=== PATIENT | female | born 1965 | race Caucasian/White ===

== ENCOUNTER 2020-02-25 13:05 | Outpatient (CLI) | payer OTHER, SELFPAY ==
--- NOTE | ~2020-02-25 | CT_ITS ---
EXAMINATION: CT abdomen pelvis wo con DATE: 02/25/2020 13:27 INDICATION: Unspecified abdominal pain TECHNIQUE: Computed tomography (CT) of the abdomen and pelvis was performed without intravenous contr ast. The dose-length product (DLP) was 203.72 mGy-cm. Automated exposure control and iterative recons truction technique were employed. COMPARISON: 10/31/2007 FINDINGS: Minimal dependent atelectasis is present in the lung bases. The heart size is normal. The l iver, spleen, pancreas, gallbladder, and adrenal glands are normal. The kidneys are unremarkable. No stones are identified in the kidneys, ureters, or bladder. There is no hydronephrosis or hydroureter. No pathologically enlarged abdominal or pelvic lymph nodes are identified. There is no free intraper itoneal gas or evidence of bowel obstruction. The appendix is normal. There is mild thickening of the anterior bladder wall. A moderate volume of colonic stool is present. The visualized osseous structu res are unremarkable. IMPRESSION: 1. Mild thickening of the anterior bladder wall which could reflect cystitis. Recommend correlation w ith urinalysis. Reviewed, dictated and finalized at location B. IMPRESSION: 1. Mild thickening of the anterior bladder wall which could reflect cystitis. R ecommend correlation with urinalysis.
== END 2020-02-25 13:06 ==
PROVIDERS: PCP Physician Assistant; Visit Provider Physician Assistant
DX: R10.9 Unspecified abdominal pain (principal); N32.9 Bladder disorder, unspecified
CPT/HCPCS: 74176

== ENCOUNTER → 2020-06-05 14:09 | Outpatient (CLI) | payer OTHER, SELFPAY ==
--- NOTE | ~2020-06-05 | MM_ITS ---
EXAMINATION: MM screening [facility] BI w maria elena HISTORY: Screening mammogram TECHNIQUE: Craniocaudal and mediolateral oblique 3-D tomosynthesis images were obtained and synthetic 2-D images were generated. CAD analysis was submitted and interpreted. COMPARISON: 01/18/2019, 01/08/2018, 12/15/2015 BREAST PARENCHYMAL COMPOSITION: There are scattered areas of fibroglandular density. FINDINGS: RIGHT BREAST: There is no evidence of suspicious mass, calcification, or architectural distortion to suggest malignancy. There has been no significant interval change. LEFT BREAST: An asymmetry is present in the middle third of the outer breast 4.5 cm from the nipple o n the craniocaudal view. IMPRESSION: 1. Left breast asymmetry on the craniocaudal view. 2. Additional mammographic views and possible breast ultrasound are recommended. BI-RADS Category 0: Incomplete: Needs additional imaging evaluation. Reviewed, dictated and finalized at location A. ECT COACH IMPRESSION: 1. Left breast asymmetry on the craniocaudal view. 2. Additional mammographic views and possible breast ultrasound are recommended . BI-RADS Category 0: Incomplete: Needs additional imaging evaluation.
== END ==
PROVIDERS: Visit Provider Nurse Practitioner Obstetrics & Gynecology
DX: Z12.31 Encounter for screening mammogram for malignant neoplasm of breast (principal); R92.8 Other abnormal and inconclusive findings on diagnostic imaging of breast
CPT/HCPCS: 77063; 77067

== ENCOUNTER → 2020-06-24 13:24 | Outpatient (CLI) | payer OTHER, SELFPAY ==
--- NOTE | ~2020-06-24 | DEXA_ITS ---
Bone Density Report Name: Cathy Bates Age: 54 Sex: Female Ethnicity: White Date of : 1965 Indication: postmenopausal osteoporosis; hysterectomy; Referring Provider: Rigo, Sarah Beth Morelos Study: Bone densitometry was performed. Exam Date: June 24, 2020 Accession number: [id number] Bone Density: Region BMD T-score Z-score Classification AP Spine (L1-L4) 0.757 -2.6 -1.6 Osteoporosis Femoral Neck (Left) 0.568 -2.5 -1.5 Osteoporosis Total Hip (Left) 0.639 -2.5 -1.8 Osteoporosis Femoral Neck (Right) 0.583 -2.4 -1.4 Osteopenia Total Hip (Right) 0.653 -2.4 -1.7 Osteopenia Total Hip Mean 0.646 -2.5 -1.8 Osteopenia World Health Organization criteria for BMD impression classify patients as: Normal (T-score at or above -1.0), Osteopenia (T-score between -1.0 and -2.5), or Osteoporosis (T-score at or below -2.5). 10-year Fracture Risk: FRAX not reported because: Some T-score for Spine Total or Hip Total or Femoral Neck at or below -2.5 Previous Exams: Region Exam Age BMD T-score BMD Change BMD Change Date g/cm2 vs Baseline vs Previous AP Spine(L1-L4) 06/24/2020 54 0.757 -2.6 -0.073* -0.019 01/08/2018 52 0.776 -2.5 -0.054* -0.054* 12/15/2015 50 0.830 -2.0 Total Hip(Left) 06/24/2020 54 0.639 -2.5 -0.047* -0.023 01/08/2018 52 0.662 -2.3 -0.024 -0.024 12/15/2015 50 0.686 -2.1 Total Hip(Right) 06/24/2020 54 0.653 -2.4 -0.047* 0.006 01/08/2018 52 0.647 -2.4 -0.053* -0.053* 12/15/2015 50 0.700 -2.0 *Denotes significance at 95% confidence level, LSC for AP Spine = 0.022 g/cm2, LSC for Total Hip = 0.027 g/cm2 Clinical Information Provided by Patient: Smokes Has 3 or more alcoholic drinks per day Has used the following medications: Vitamin D, Calcium Has the following medical conditions: Hysterectomy Patient maximum height was 60 Menopause Age: 42 No regular weight bearing exercise Does not regularly consume dairy products Drinks caffeinated beverages Onset of menses at age 11 Number of children 2 Impression: The patient has osteoporosis, based on the Total Spine T-score. The patient has risk factors, including: smoking, excessive alcohol use. No significant bone loss was observed. Discussion: INCREASED RISK OF FRACTURE. BONE DENSITY IS UNDESIRABLY LOW AT ONE OR MORE SKELETAL SITES, CONSISTENT WITH POSTMENOPAUSAL
== END ==
PROVIDERS: Visit Provider Nurse Practitioner Obstetrics & Gynecology
DX: M81.0 Age-related osteoporosis without current pathological fracture (principal); M85.89 Other specified disorders of bone density and structure, multiple sites
CPT/HCPCS: 77080

== ENCOUNTER → 2020-07-27 14:13 | Outpatient (CLI) | payer OTHER, SELFPAY ==
--- NOTE | ~2020-07-27 | MM_ITS ---
EXAMINATION: MM diagnostic linh LT w maria elena HISTORY: Left breast asymmetry reported in middle third of outer breast 4.5 cm from nipple on cranioc audal view of 06/05/2020 TECHNIQUE: Additional 3-D tomosynthesis images of the left breast were performed and synthetic 2-D im ages were generated. CAD analysis was submitted and interpreted. COMPARISON: 06/05/2020,01/18/2019, 01/08/2018bilateral digital screening mammogram examinations FINDINGS: The area of suggested asymmetry in the outer mid left breast at mid depth 4.5 cm from the n ipple compresses out on the cone compression lateral cc view IMPRESSION: 1. No mammographic evidence of malignancy 2. Routine annual mammographic screening is recommended. BI-RADS Category 2: Benign finding(s). Reviewed, dictated and finalized at location A. GER BUSINESS INTELLIGENCE
== END ==
PROVIDERS: Visit Provider Nurse Practitioner Obstetrics & Gynecology
DX: R92.8 Other abnormal and inconclusive findings on diagnostic imaging of breast (principal)
CPT/HCPCS: 77061; 77065; G0279

== ENCOUNTER 2020-09-28 14:18 | Outpatient (CLI) | payer OTHER, SELFPAY | END 2020-09-28 14:19 | disposition home or self-care (01) | LOC: ANHCOVIDVC 14:18 | DX: Z23 Encounter for immunization (principal) | CPT/HCPCS: 0001A; 91300 ==

== ENCOUNTER 2020-10-19 14:18 | Outpatient (CLI) | payer OTHER, SELFPAY | END 2020-10-19 14:19 | disposition home or self-care (01) | LOC: ANHCOVIDVC 14:18 | DX: Z23 Encounter for immunization (principal) | CPT/HCPCS: 0002A; 91300 ==

== ENCOUNTER 2021-01-25 15:28 | Outpatient (CLI) | payer OTHER, SELFPAY ==
[2021-01-25 15:49] LABS: Add Urine Microscopic? YES; Appearance Urine Clear (Clear); Bilirubin Urine Negative (Negative); Blood Urine 1+ (Negative); Color Urine Straw (Yellow); Glucose Urine UA Negative (Negative); Ketones Urine Negative (Negative); Leukocyte Esterase Ur Negative LEU/UL (NEGATIVE); Mucus Urine Rare /lpf; Nitrate Urine Negative (Negative); Protein Urine Negative (Negative); RBC Urine 0-2 /hpf (0-2); Specific Grav Ur 1.008 (1.001-1.035); Squamous Epithelial Cell Urine Rare /hpf (Few); Urobilinogen Urine Negative mg/dL (<2.0); WBC Urine 0-3 /hpf (0-3)
== END 2021-01-25 15:29 | disposition home or self-care (01) ==
LOC: ANHLAB 15:30
PROVIDERS: PCP Physician Assistant; Visit Provider Physician Assistant
DX: R30.0 Dysuria (principal)
CPT/HCPCS: 81001; 87086; 87088

== ENCOUNTER 2021-05-04 10:12 | Inpatient (IN) | payer OTHER, SELFPAY ==
--- NOTE | ~2021-05-04 | XR_ITS ---
XR ankle LT min 3V DATE: 05/04/2021 10:43 INDICATION: Fall down steps. Bilateral ankle swelling, bruising TECHNIQUE: 4 views COMPARISON: None FINDINGS: There is moderate millimeters lateral displacement of a linear oblique fracture of the late ral malleolus with overlying soft tissue swelling. Virtually nondisplaced transverse fracture of the medial malleolus just above the level of the talar plafond, with mild overlying soft tissue swelling. The posterior malleolus appears intact. IMPRESSION: Bimalleolar fracture Reviewed, dictated and finalized at location A. ENT DEVELOPMENT SPECIALIST IMPRESSION: Bimalleolar fracture
--- NOTE | ~2021-05-04 | XR_ITS ---
XR ankle RT min 3V DATE: 05/04/2021 10:43 INDICATION: Fall down steps. Bilateral ankle swelling, bruising TECHNIQUE: 4 views COMPARISON: None FINDINGS: There is a linear oblique fracture of the lateral malleolus with 2 mm lateral displacement and overlying soft tissue swelling. No other fracture is evident. Ankle mortise appears intact. IMPRESSION: Lateral malleolar 2 millimeter laterally displaced fracture Reviewed, dictated and finalized at location A. CHECKER
--- NOTE | ~2021-05-04 | XR_ITS ---
EXAMINATION: XR chest 1V portable DATE: 05/04/2021 18:14 INDICATION: Preoperative evaluation post fall. Cardiovascular risk factor of smoking. TECHNIQUE: frontal view of the chest was obtained. COMPARISON: None FINDINGS: The lungs are clear with no focal airspace opacities, pulmonary edema, pleural effusion or pneumothor ax. The cardiomediastinal silhouette is normal. Visualized bones and soft tissues are unremarkable. IMPRESSION: 1. No acute cardiopulmonary disease. Reviewed, dictated and finalized at location A. ERSHIP INTERN
--- NOTE | ~2021-05-04 | CT_ITS ---
EXAMINATION: CT brain wo con DATE: 05/04/2021 18:20 INDICATION: Neck pain post fall down steps. TECHNIQUE: Computed tomography (CT) of the head was performed without intravenous contrast. Sagittal and coronal reconstructions were performed. The mA was adjusted according to patient size. Iterative reconstruction technique was employed. The dose-length product was 605.33 mGy-cm. COMPARISON: None FINDINGS: No fracture. No acute intracranial hemorrhage, acute infarction or abnormal extra axial fluid collect ion. Ventricles are normal and symmetric. No mass/mass effect. The orbits, paranasal sinuses and mast oid air cells are normal. IMPRESSION: 1. Normal head CT. No fracture or acute intracranial process. Reviewed, dictated and finalized at location A. COACH
--- NOTE | ~2021-05-04 | CT_ITS ---
EXAMINATION: CT cervical spine wo con DATE: 05/04/2021 18:20 INDICATION: Neck pain post fall TECHNIQUE: Computed tomography (CT) of the cervical spine was performed without intravenous contrast. Automated exposure control and iterative reconstruction technique were employed. The dose-length pro duct was 92.64 mGy-cm. COMPARISON: None FINDINGS: Slight reversal of the normal cervical lordosis. 1 mm anterolisthesis C5 on C6 with mild associated d isc height loss. Vertebral body heights are normal. No fracture. Bilateral severe multilevel cervical facet osteoarthritis contributing to mild neural foraminal stenosis on the right at C4-C5 and C5-C6. No central canal stenosis. Cervical soft tissues are unremarkable. Mild emphysema at the bilateral a pices of lungs. IMPRESSION: 1. Multilevel severe bilateral cervical facet osteoarthritis and mild disc disease at C5-C6. No acute osseous abnormality. 2. Mild emphysema. Reviewed, dictated and finalized at location A. COORDINATOR IMPRESSION: 1. Multilevel severe bilateral cervical facet osteoarthritis and mild disc dise ase at C5-C6. No acute osseous abnormality. 2. Mild emphysema.
--- NOTE | ~2021-05-04 | XR_ITS ---
EXAMINATION: XR ankle RT min 3V DATE: 05/05/2021 16:06 INDICATION: Right ankle fracture. TECHNIQUE: Anteroposterior, oblique and mortise views of the right ankle were obtained. COMPARISON: None. FINDINGS: Again seen is an oblique fracture at the distal metaphyseal region of the right fibula with medial ma rgin of the fracture transversing the cortex at the level of the tibiotalar joint line consistent wit h a Quinones type B injury pattern. There is 1.5 mm lateral displacement of the distal fragment. The ank le mortise remains congruent. No other fractures identified. Profiled joint spaces are normal. There is soft tissue swelling about the lateral malleolus but not about the medial malleolus. IMPRESSION: 1. Minimally displaced right lateral malleolar fracture. Reviewed, dictated and finalized at location A. LE HEAD MACHINE OPERATOR
--- NOTE | ~2021-05-04 | XR_ITS ---
EXAMINATION: XR ankle RT min 3V DATE: 05/05/2021 16:56 INDICATION: Right ankle fracture post cast placement. TECHNIQUE: Anteroposterior, oblique and lateral views of the right ankle were obtained. COMPARISON: 05/05/2021 at 3:41 PM FINDINGS: Interval casting of an oblique fracture of the distal right fibula with no significant change in 1 mm lateral displacement. No other fractures identified. Alignment remains near-anatomic with a congruen t ankle mortise. Joint spaces appear normal. Soft tissue swelling about the lateral malleolus. IMPRESSION: 1. Interval casting the distal right fibular fracture which remains in near-anatomic alignment. Reviewed, dictated and finalized at location A. SORTER IMPRESSION: 1. Interval casting the distal right fibular fracture which remains in near-donaldo tomic alignment.
[2021-05-04 10:15] VITALS: BP 116/74; PULSE 106; RESP 16; TEMP 36.3; O2SAT 99
--- NOTE | 2021-05-04 13:24 | ED.GENADULT ---
HPI - General Adult General Chief complaint: Extremity Injury, Lower Stated complaint: bilat ankle injuries Time Seen by Provider: 05/04/21 10:20 Source: patient Mode of arrival: ambulatory Limitations: no limitations History of Present Illness HPI narrative: Patient is a 55-year-old female with history of osteoporosis presenting with chief complaint of bilateral ankle pain after rolling her right ankle yesterday and falling down 2 steps in her garage after losing her footing. Patient reports that she is not able to weight-bear on the ankles and that she has been having to get around her house using a wheelchair, which has been difficult. Patient reports that she was diagnosed with osteoporosis, is a smoker and has levothyroxine. Patient denies head impact or loss of consciousness. Patient denies any other areas of injury or discomfort. Patient has not taken anything to alleviate her discomfort. Related Data Home Medications Medication Instructions Recorded Confirmed ergocalciferol (vitamin D2) 1,250 1,250 mcg PO WEEKLY 11/07/19 01/26/21 mcg (50,000 unit) capsule vitamin B complex 1 tablet PO DAILY 04/30/20 01/26/21 Allergies Allergy/AdvReac Type Severity Reaction Status Date / Time Penicillins Allergy Mild Unknown Verified 05/04/21 11:55 amoxicillin Allergy Unknown RED Verified 05/04/21 11:55 STREAKS TO FACE AND THROAT, ITCHING morphine Allergy Unknown ITCHING Verified 05/04/21 11:55 nitrofurantoin AdvReac Intermediate bloating Verified 05/04/21 11:55 [From Macrobid] Review of Systems Review of Systems: CONSTITUTIONAL: Denies fever, chills, or sweats. EYES: Denies visual changes, redness, or discharge. ENT: Denies rhinorrhea, congestion, sore throat, or otalgia. CARDIOVASCULAR: Denies chest pain, palpitations, or edema. RESPIRATORY: Denies cough or dyspnea. GASTROINTESTINAL: Denies abdominal pain, nausea, vomiting, or diarrhea. GENITOURINARY: Denies dysuria or hematuria. SKIN: Denies rash or itching. MUSCULOSKELETAL: Reports bilateral ankle pain denies back pain, joint pain, or myalgia. NEUROLOGIC: Denies headache, numbness, dizziness, or weakness. PSYCHIATRIC: Denies anxiety or depression. [facility] Past Medical History Medical History (Updated 05/04/21 @ 17:32 by Denise Zamudio PA-C) Tobacco dependence Social History Social History (Updated 05/04/21 @ 17:57 by Joslyn Kwon PA-C) Social History: Surrogate decision maker: Efrain Bates, spouse. Code status: Full code. Smoking packs per day: 0.5 Smoking cigarettes per day: 10.0 Years smoked: 40 Smoking pack-years: 20.00 Smoking status: Current every day smoker Second hand tobacco smoke exposure: Yes Alcohol intake: current Drinks per week: 42 Alcohol use details: 6 pack of beer/day. Substance use: never Additional living arrangements comments: The patient lives in [place] with her . They have 4 children. 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 Exam Narrative: GENERAL: Well-appearing, well-nourished, and in no acute distress. HEAD: Normocephalic, atraumatic. EYES: PERRLA and EOMI. CHEST: Clear to auscultation. No respiratory distress. No wheezes rales or rhonchi HEART: Regular rate and rhythm. No murmur heard. Normal peripheral pulses. ABDOMEN: Soft, nontender, nondistended, normal active bowel sounds. EXTREMITIES: Swelling noted to bilateral ankles. The right ankle swelling is greater over the lateral malleolus. To the left ankle swelling over both malleolus is. There is bruising noted to bilateral ankles. And swelling distally the patient's feet. Patient is unable to weight-bear due to discomfort. Range of motion limited due to discomfort. SKIN: Warm, dry, no rash. NEURO: No focal deficits. Alert and oriented x3. PSYCH: Normal mood and affect. Course Vital Signs Vital signs: Vital Signs Temperature 97.3 F L 05/04/21 10:15 Pulse Rate 106 H 1
[2021-05-04] MEDS: HYDROcodone/acetaminophen (*CRX) 5-325 MG TABLET 1 TAB PO ×2 (14:12→20:18)
[2021-05-04 15:44] VITALS: BP 120/84; PULSE 99; RESP 18; O2SAT 98
--- NOTE | 2021-05-04 18:30 | PM.IMHP ---
H&P: HPI History of Present Illness Date/Time: 05/04/21 18:30 Chief Complaint: Ankle pain after fall. Narrative: This is a 55-year-old female smoker with osteoporosis, hypothyroidism, daily alcohol consumption, and vitamin-D deficiency who presented to the emergency department earlier today for evaluation of bilateral ankle pain after suffering a fall yesterday. Last evening at around 22:00 the patient when out into the garage and when she stepped down on the stair she believes that her right ankle rolled inwards causing her to fall forward and down another step. She had difficulties getting herself up due to significant pain in both of her ankle and her had to carry her to the couch. Her pain improved with an Aleve and she was able to sleep throughout the night. When attempting to get up this morning she was unable to put weight on either leg due to pain in her ankles and she was brought in to the ER her she was found to have bilateral ankle fractures. On exam she did have mild tenderness to palpation mild acute over the mid cervical vertebrae and with further questioning she thinks that she may have hit the right side of her head when she fell last evening though she did not have any headache or neck ache at that time. There was no loss of consciousness. She denies antecedent symptoms prior to the fall and reports that it was simply a mechanical fall. Review of Systems Review of Systems: Twelve systems were reviewed. No headache. No auditory visual changes. No focal weakness or paresthesias. No fever, chills, or sweats. No recent cold or flu symptoms. She denies chest pain, palpitations, pleuritic pain, and shortness of breath. No nausea, vomiting, diarrhea, or dysuria. The patient drinks about a six-pack of beer a day and has for well over 20 years. She has on occasion noticed tremors or anxiety when not drinking though she has no history of significant alcohol withdrawal symptoms or seizure. Except as documented, all other systems were reviewed and are negative. [facility] Past Medical History Medical History (Updated 05/04/21 @ 22:06 by Joslyn Kwon PA-C) Daily consumption of alcohol Hypothyroidism Osteoporosis Tobacco dependence Vitamin D deficiency Surgical History Surgical History (Updated 05/04/21 @ 22:05 by Joslyn Kwon PA-C) History of 2 sections History of left breast biopsy History of right salpingo-oophorectomy Family History Family History (Updated 05/04/21 @ 22:06 by Joslyn Kwon PA-C) Mother Cerebrovascular accident Father Acute myocardial infarction Social History Social History (Updated 05/04/21 @ 22:07 by Joslyn Kwon PA-C) Social History: Surrogate decision maker: Efrain Bates, spouse. Code status: Full code. Smoking packs per day: 1 Smoking cigarettes per day: 20.0 Years smoked: 40 Smoking pack-years: 40.00 Smoking status: Current every day smoker Tobacco type: cigarettes Second hand tobacco smoke exposure: Yes Alcohol intake: current Drinks per week: 40 Alcohol use details: 6 pack of beer/day. Substance use: never Substance use type: does not use Additional living arrangements comments: The patient lives in [place] with her and a son. Three of their children are grown an outside of the home. 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 Meds Home Medications and Allergies Home Medications Medication Instructions Recorded Confirmed Type ergocalciferol (vitamin D2) 1,250 1,250 mcg PO WEEKLY 11/07/19 05/04/21 History mcg (50,000 unit) capsule vitamin B complex 1 tablet PO DAILY 04/30/20 05/04/21 History levothyroxine 75 mcg tablet 75 mcg PO DAILY #90 tablet 04/06/21 05/04/21 Rx dicyclomine 20 mg PO TID PRN 05/04/21 05/04/21 History Allergies Allergy/AdvReac Type Severity Reaction Status Date / Time Penicillins Allergy Mild Unknown Verified 05/04/21 11:55 amoxicillin Allergy Unknow
[2021-05-04] MEDS: NICOTINE (*PBKC) 14 MG PATCH 1 PATCH TRANSDERM (19:03)
[2021-05-04 19:17] LABS: Basophils Absolute Auto 0.1 K/mm3 (0.0-0.1); Basophils Percent Auto 0.6 % (0.2-1.2); Eosinophils Absolute Auto 0.1 K/mm3 (0-0.3); Eosinophils Percent Auto 0.6 % (0-4.4); Hematocrit 33.8 % (37.0-47.0); Hemoglobin 11.5 g/dL (12.0-15.0); Immature Granulocyte Absolute 0.03 K/mm3 (0.00-0.031); Immature Granulocyte Percent A 0.4 % (0-0.5); Lymphocytes Absolute Auto 2.44 K/mm3 (0.9-3.2); Lymphocytes Percent Auto 31.1 % (18.3-44.2); Mean Corpuscular Hemoglobin 33.6 pg (26-34); Mean Corpuscular Volume 98.8 fl (80-100); Mean Platelet Volume 8.8 fl (7.4-10.4); Monocytes Absolute Auto 1.1 K/mm3 (0.1-0.6); Monocytes Percent Auto 13.8 % (2.6-8.5); Neutrophils Absolute Auto 4.2 K/mm3 (1.3-6.7); Neutrophils Percent Auto 53.5 % (45.5-73.1); Platelet Count Result 242 k/mm3 (150-375); Red Blood Count 3.42 M/mm3 (4.2-5.4); Red Cell Distribution Width 12.6 % (11.5-14.5); White Blood Count 7.8 K/mm3 (4.5-10.0)
[2021-05-04 19:22] VITALS: BP 138/93; PULSE 106; RESP 18; TEMP 37; O2SAT 99
[2021-05-04 19:27] LABS: INR 0.9; Prothrombin Time 11.8 Seconds (11.1-14.7)
[2021-05-04 19:28] LABS: Partial Thromboplastin Time 23.6 SECONDS (22.3-36.8)
[2021-05-04 19:33] LABS: Albumin Level 4.7 g/dL (3.5-5.1); Alkaline Phosphatase 71 U/L (38-126); Anion Gap 10 mmol/L (8-16); Aspartate Amino Transferase 29 U/L (14-36); Bilirubin,Total 0.7 mg/dL (0.2-1.3); Blood Urea Nitrogen 13 mg/dL (7-17); Calcium 9.9 mg/dL (8.4-10.2); Carbon Dioxide 22 mmol/L (22-30); Chloride 107 mmol/L (98-107); Estimated CRCL calculation 55 ml/min; Estimated Glomerular Filt Rate > 60; Glucose 125 mg/dL (65-110); Potassium 3.9 mmol/L (3.4-5.0); Sodium 139 mmol/L (137-145)
--- NOTE | 2021-05-04 19:58 | ADMGEN ---
This patient, Cathy Bates, was admitted to Medical Room 244-. Patient/family oriented to hospital policies and general routines including ID bracelet, bed and alarms, visiting hours, pain management, procedures, bathroom and other care routines, personal items, smoking policy, room service/diet, and visiting hours. Information on how to activate the Rapid Response Team has been discussed. Patient/Family are encouraged to report perceived risks to care and to ask questions if they do not understand what they are told or what they should do.
[2021-05-04 20:02] VITALS: PULSE 100; RESP 18; O2SAT 99
[2021-05-04 20:11] LABS: Thyroid Stimulating Hormone Reflex 0.258 uIU/mL (0.465-4.68)
[2021-05-04 20:18] LABS: Alanine Aminotransferase 20 U/L (4-35)
[2021-05-04 22:00] VITALS: BP 131/68; PULSE 98; RESP 21; TEMP 36.6; O2SAT 100; BMI 20.9
[2021-05-04 22:01] LABS: Total Triiodothyronine (T3) 1.12 NG/ML (0.97-1.69)
[2021-05-05] MEDS: chlordiazePOXIDE (*CRX) 10 MG CAPSULE PO ×2 (00:58→21:25)
--- NOTE | 2021-05-05 01:07 | PC.NURSE ---
PT WAS RESTING WITH EYES CLOSED. STATES DAUGHTER CALLED AND WOKE HER UP AND NOW SHE HAS ANXIETY, LIBRIUM GIVEN
[2021-05-05] MEDS: HYDROcodone/acetaminophen (*CRX) 5-325 MG TABLET 1 TAB PO ×3 (04:54→23:27)
[2021-05-05 06:00] VITALS: BP 147/78; PULSE 93; RESP 21; TEMP 37; O2SAT 100
--- NOTE | 2021-05-05 07:10 | PCOTNOTE ---
Unable to complete OT evaluation at this time due to waiting for ortho consult and appropriate WB orders.
--- NOTE | 2021-05-05 07:16 | PM.CNOR ---
Assessment and Plan Additional Plan This patient is a 55-year-old female with osteoporosis long-term smoker and all call is Prabhakar who fell down some stairs yesterday sustaining a displaced bimalleolar left ankle fracture with acceptable alignment for immobilization until swelling reduces enough to perform open reduction internal fixation and on the right ankle she has a lateral malleolus fracture that does show some displacement without obvious medial clear space widening. This is a fracture that should be subjected to a stress view to see if there is medial clear space widening under stress which would indicate repairing the lateral malleolus fracture of the right ankle as well. She presented the emergency room with significant swelling left ankle and as such we will need to wait approximately 1 week before performing the surgery to allow the swelling to reduce to minimize the risk of wound healing complications skin edge necrosis and infection. She is at higher risk for DVT with immobilization because of her chronic smoking history and I would recommend for her using Lovenox 40 mg daily. She will not be able to bear weight on either ankle and as such she is going to require intensive assistance of others until her ankle fractures heal and I would estimate weight-bearing was started approximately 6 weeks after her surgery. It would be best for her to stop smoking completely at this time because of healing complications and her all [place] is some puts her at risk for developing withdrawal symptoms and that will have to be carefully watched for during this week. Up History of Present Illness HPI Consult date: 05/05/21 Chief complaint: bilateral ankles malleoli fractures PMFSH Past Medical History Medical History (Updated 05/04/21 @ 22:06 by Joslyn Kwon PA-C) Daily consumption of alcohol Hypothyroidism Osteoporosis Tobacco dependence Vitamin D deficiency Surgical History Surgical History (Updated 05/04/21 @ 22:05 by Joslyn Kwon PA-C) History of 2 sections History of left breast biopsy History of right salpingo-oophorectomy Family History Family History (Updated 05/04/21 @ 22:06 by Joslyn Kwon PA-C) Mother Cerebrovascular accident Father Acute myocardial infarction Social History Social History (Updated 05/04/21 @ 22:07 by Joslyn Kwon PA-C) Social History: Surrogate decision maker: Efrain Bates, spouse. Code status: Full code. Smoking packs per day: 1 Smoking cigarettes per day: 20.0 Years smoked: 40 Smoking pack-years: 40.00 Smoking status: Current every day smoker Tobacco type: cigarettes Second hand tobacco smoke exposure: Yes Alcohol intake: current Drinks per week: 40 Alcohol use details: 6 pack of beer/day. Substance use: never Substance use type: does not use Additional living arrangements comments: The patient lives in [place] with her and a son. Three of their children are grown an outside of the home. 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 Meds Home Medications and Allergies Home Medications Medication Instructions Recorded Confirmed Type ergocalciferol (vitamin D2) 1,250 1,250 mcg PO WEEKLY 11/07/19 05/04/21 History mcg (50,000 unit) capsule vitamin B complex 1 tablet PO DAILY 04/30/20 05/04/21 History levothyroxine 75 mcg tablet 75 mcg PO DAILY #90 tablet 04/06/21 05/04/21 Rx dicyclomine 20 mg PO TID PRN 05/04/21 05/04/21 History Allergies Allergy/AdvReac Type Severity Reaction Status Date / Time Penicillins Allergy Mild Unknown Verified 05/04/21 11:55 amoxicillin Allergy Unknown RED Verified 05/04/21 11:55 STREAKS TO FACE AND THROAT, ITCHING morphine Allergy Unknown ITCHING Verified 05/04/21 11:55 nitrofurantoin AdvReac Intermediate bloating Verified 05/04/21 11:55 [From Macrobid] Vital Signs Vital Signs - 24 hr 05/04/21 10:15
[2021-05-05 08:00] VITALS: BP 138/84; PULSE 88; RESP 14; TEMP 36.9; O2SAT 99
[2021-05-05] MEDS: LEVOTHYROXINE SODIUM 75 MCG TABLET PO (08:00)
[2021-05-05] MEDS: FOLIC ACID 1 MG TABLET PO (09:04)
[2021-05-05] MEDS: THIAMINE HCL 100 MG TABLET PO (09:04)
[2021-05-05] MEDS: VITAMIN B COMPLEX CAPSULE 1 CAP PO (09:04)
[2021-05-05] MEDS: THERAPEUTIC MULTIVITAMINS/MINERALS TAB (*BKC) 1 TABLET PO (09:04)
[2021-05-05] MEDS: NICOTINE (*PBKC) 14 MG PATCH 1 PATCH TRANSDERM (09:05)
[2021-05-05] MEDS: ENOXAPARIN 40 MG/0.4 ML SYRINGE SUB-Q (09:05)
--- NOTE | 2021-05-05 09:24 | PCOTNOTE ---
OT orders discharged at this time, waiting for surgery, re-order when appropriate.
--- NOTE | 2021-05-05 09:27 | PCPTNOTE ---
PT orders discharged at this time, waiting for surgery, re-order when appropriate.
[2021-05-05] MEDS: ERGOCALCIFEROL 50,000 UNIT CAPSULE 50000 UNITS PO (11:11)
[2021-05-05 12:00] VITALS: BP 153/77; PULSE 79; RESP 16; TEMP 36.3; O2SAT 98
--- NOTE | 2021-05-05 13:23 | PM.IMPN ---
Progress Note: A&P Assessment and Plan (1) Closed right malleolar fracture: Code(s): S82.891A - Other fracture of right lower leg, initial encounter for closed fracture Status: Acute Assessment and Plan: Seen by orthopedics, continue elevation and pain control (2) Bimalleolar fracture of left ankle: Qualifiers: Encounter type: initial encounter Fracture type: closed Qualified Code(s): S82.842A - Displaced bimalleolar fracture of left lower leg, initial encounter for closed fracture Code(s): S82.842A - Displaced bimalleolar fracture of left lower leg, initial encounter for closed fracture Status: Acute Assessment and Plan: Seen by orthopedics,continue elevation and pain control (3) Fall from ground level: Code(s): W18.30XA - Fall on same level, unspecified, initial encounter Status: Acute Assessment and Plan: Accidental fall (4) Tobacco dependence: Code(s): F17.200 - Nicotine dependence, unspecified, uncomplicated Status: Acute Assessment and Plan: Advised to quit smoking (5) Daily consumption of alcohol: Code(s): Z78.9 - Other specified health status Status: Acute Assessment and Plan: adviced to quit, ciwa protocol in hospital (6) Osteoporosis: Code(s): M81.0 - Age-related osteoporosis without current pathological fracture Status: Acute Assessment and Plan: chronic problem (7) Hypothyroidism: Code(s): E03.9 - Hypothyroidism, unspecified Status: Acute Assessment and Plan: chronic problem, tsh ordered which is low Subjective Date/time seen: 05/05/21 13:23 Interval history: Pt sustained L bimalleolar fracture and R closed fracture after accidental fall. Pt having pain in both ankles and feet awaiting surgery once more stable. Pt has history of osteoporosis, hypothyroidism, daily alcohol consumption, and vitamin-D deficiency Review of Systems Review of Systems: All systems reviewed & are unremarkable except as noted in HPI and below Exam Narrative: General: Well-developed, thin female HEENT: Normocephalic, atraumatic Neck: Supple Respiratory: Aside from faint expiratory wheezing lungs are clear to auscultation bilaterally. Cardiovascular: Regular rate and rhythm with S1-S2. Gastrointestinal: Abdomen is soft, nontender, and nondistended with positive bowel sounds. Skin: Warm and dry. Palmar erythema. Extremities: No cyanosis, clubbing, or edema. Radial pulses 2+. Unable to palpate pedal and posterior tibialis pulses due to cast/splint in place. She is neurovascular intact distal to the fractures. Neurological: Alert and oriented x4. Cranial nerves 2-12 are grossly intact. Objective Data Vital Signs Vital Signs: Vital Signs - 24 hr 05/04/21 15:44 05/04/21 19:22 05/04/21 20:02 Temperature 37.0 C Pulse Rate 99 106 H 100 Respiratory Rate 18 18 18 Blood Pressure 120/84 138/93 H Pulse Oximetry 98 99 99 05/04/21 22:00 05/05/21 06:00 05/05/21 08:00 Temperature 36.6 C 37.0 C 36.9 C Pulse Rate 98 93 88 Respiratory Rate 21 H 21 H 14 Blood Pressure 131/68 147/78 H 138/84 Pulse Oximetry 100 100 99 Intake/Output Intake/Output: Intake & Output 05/02/21 05/03/21 05/04/21 05/05/21 23:59 23:59 23:59 23:59 Output Total 600 Balance -600 Meds/Results Medications: Active Medications Generic Name Dose Route Start Last Admin Trade Name Freq PRN Reason Stop Dose Admin Acetaminophen 650 mg 05/04/21 15:10 Acetaminophen 325 Mg Tablet PO Q4H PRN Mild Pain (1-3) or Fever Hydrocodone Bitart/Acetaminophen 1 tab 05/04/21 15:10 05/05/21 11:11 Hydrocodone/Acetaminophen (*Crx) 5-325 Mg Tablet PO 1 tab Q6H PRN Administration Pain Rated 4-6 Chlordiazepoxide HCl 10 mg 05/04/21 17:52 05/05/21 00:58 Chlordiazepoxide (*Crx) 10 Mg Capsule PO 10 mg Q8H PRN Administration Anxiety/withdrawal
--- NOTE | 2021-05-05 15:41 | PC.NURSE ---
On 05/05/21, the student, [TATA], provided care and completed [facility] on this patient. I have reviewed the student's documentation and agree with the findings.
--- NOTE | 2021-05-05 18:33 | PM.PNORT ---
Progress Note: A&P Additional Plan Patient had her splint removed from the right ankle. There is no significant swelling about the right ankle at all. She had tenderness laterally. We took a few stress view x-rays trying to get a perfect view of the medial clear space and on 1 stress view the medial clear space widened to 4 mm compared with 3 mm superiorly which is borderline and the other views shows no widening to 4 mm. I have recommended therefore that we tried to put the right ankle in a cast and this was done and x-rays in the cast showed reduction of the medial clear space down to 3 mm matching the superior clear space exactly and on the lateral view the 3 mm of posterior displacement of the lateral malleolus fragment is well reduced so I think that this right ankle should do well with nonsurgical treatment. The right ankle was also looked at. She was complaining of some pain in the back the heel we removed the splint and there was a little bit of erythema but nothing significant backed the heel fortunately. She has very thin ankles normally and she has moderate swelling and the skin is tight a little bit and it would be best to wait a full week to allow the swelling to reduce on the left before proceeding with open reduction internal fixation of her bimalleolar ankle fracture on that side. She was placed in a very well-padded posterior splint extra padding behind the heel with ABD. She had 2+ dorsalis pedis pulses palpable bilaterally and intact light touch sensation in her toes and top and bottom of both feet with splints off. I should mention that there was no blistering in the skin just moderate swelling with some degree of firmness around the left ankle. Our plan is to proceed with open reduction internal fixation of bimalleolar left ankle fracture in 1 week and we have scheduled the procedure for her. I would recommend that she be on the Lovenox for DVT prophylaxis and we will plan to stop her Lovenox after her dose on Monday. Her platelets are normal at 242,000 hundred forty two thousand this today and we will want to check platelets at some point probably next Monday when she is in the hospital for her surgery be appropriate. Subjective Subjective Date/Time Seen: 05/05/21 18:33 Objective Data Vital Signs Vital Signs: Vital Signs - 24 hr 05/04/21 19:22 05/04/21 20:02 05/04/21 22:00 Temperature 37.0 C 36.6 C Pulse Rate 106 H 100 98 Respiratory Rate 18 18 21 H Blood Pressure 138/93 H 131/68 Pulse Oximetry 99 99 100 05/05/21 06:00 05/05/21 08:00 05/05/21 12:00 Temperature 37.0 C 36.9 C 36.3 C L Pulse Rate 93 88 79 Respiratory Rate 21 H 14 16 Blood Pressure 147/78 H 138/84 153/77 H Pulse Oximetry 100 99 98 Intake/Output Intake/Output: Intake & Output 05/02/21 05/03/21 05/04/21 05/05/21 23:59 23:59 23:59 23:59 Intake Total 2200 Output Total 1350 Balance 850 Meds/Results Medications: Active Medications Generic Name Dose Route Start Last Admin Trade Name Freq PRN Reason Stop Dose Admin Acetaminophen 650 mg 05/04/21 15:10 Acetaminophen 325 Mg Tablet PO Q4H PRN Mild Pain (1-3) or Fever Hydrocodone Bitart/Acetaminophen 1 tab 05/04/21 15:10 05/05/21 11:11 Hydrocodone/Acetaminophen (*Crx) 5-325 Mg Tablet PO 1 tab Q6H PRN Administration Pain Rated 4-6 Chlordiazepoxide HCl 10 mg 05/04/21 17:52 05/05/21 00:58 Chlordiazepoxide (*Crx) 10 Mg Capsule PO 10 mg Q8H PRN Administration Anxiety/withdrawal Enoxaparin Sodium 40 mg 05/05/21 09:00 05/05/21 09:05 Enoxaparin 40 Mg/0.4 Ml Syringe SUB-Q 40 mg DAILY CHARISMA Administration Ergocalciferol 50,000 unit 05/05/21 09:00 05/05/21 11:11 Ergocalciferol 50,000 Unit Capsule PO 50,000 unit WEEKLY CHARISMA Administration Folic Acid 1 mg 05/05/21 09:00 05/05/21 09:04 Folic Acid 1 Mg Tablet PO 1 mg DAILY CHARISMA Administration Levothyroxine Sodium 75 mcg 05/05/21 13:31 Levothyroxine
[2021-05-05 20:00] VITALS: BP 146/79
[2021-05-05 20:03] VITALS: PULSE 82; RESP 18; O2SAT 98
[2021-05-05] MEDS: ACETAMINOPHEN 325 MG TABLET 650 MG PO (21:24)
[2021-05-05 22:00] VITALS: BP 146/79; PULSE 95; RESP 21; TEMP 36.1; O2SAT 100
[2021-05-06 04:00] VITALS: BP 146/79
[2021-05-06] MEDS: LEVOTHYROXINE SODIUM 75 MCG TABLET PO (05:32)
[2021-05-06 06:00] VITALS: BP 138/85; PULSE 82; RESP 21; TEMP 36.1; O2SAT 100
--- NOTE | 2021-05-06 07:20 | PM.PNORT ---
Progress Note: A&P Additional Plan patient is hospital day 3. After bilateral ankle fractures. Right ankle appears to be an SER stage II lateral malleolus fracture without gross deltoid ligament insufficiency on stress views and anatomic alignment of the mortise in the cast. We will treat this nonsurgically as long as anatomic alignment is maintained. With respect to her left ankle, we on wrapped splint yesterday and noted that she had rather tense swelling and I expect it will take a week for the swelling to go down to the degree that it will be safe to proceed with open reduction internal fixation of her bimalleolar ankle fracture which is displaced. A new well-padded splint was applied. She will need to be Jennifer lift transfers bed to chair until that time. Elevation will be reagan. We will check a 25 hydroxy vitamin-D level and supplement this if it is low. She has osteoporosis and will need to have that addressed after her fractures are stabilized. Subjective Subjective Date/Time Seen: 05/06/21 07:20 Objective Data Vital Signs Vital Signs: Vital Signs - 24 hr 05/05/21 08:00 05/05/21 12:00 05/05/21 20:00 Temperature 36.9 C 36.3 C L Pulse Rate 88 79 Respiratory Rate 14 16 Blood Pressure 138/84 153/77 H 146/79 H Pulse Oximetry 99 98 05/05/21 20:03 05/05/21 22:00 05/06/21 04:00 Temperature 36.1 C L Pulse Rate 82 95 Respiratory Rate 18 21 H Blood Pressure 146/79 H 146/79 H Pulse Oximetry 98 100 05/06/21 06:00 Temperature 36.1 C L Pulse Rate 82 Respiratory Rate 21 H Blood Pressure 138/85 Pulse Oximetry 100 Intake/Output Intake/Output: Intake & Output 05/03/21 05/04/21 05/05/21 05/06/21 23:59 23:59 23:59 23:59 Intake Total 2200 650 Output Total 1350 800 Balance 850 -150 Meds/Results Medications: Active Medications Generic Name Dose Route Start Last Admin Trade Name Freq PRN Reason Stop Dose Admin Acetaminophen 650 mg 05/04/21 15:10 05/05/21 21:24 Acetaminophen 325 Mg Tablet PO 650 mg Q4H PRN Administration Mild Pain (1-3) or Fever Hydrocodone Bitart/Acetaminophen 1 tab 05/06/21 07:19 Hydrocodone/Acetaminophen (*Crx) 5-325 Mg Tablet PO Q4H PRN Pain Rated 4-6 Chlordiazepoxide HCl 10 mg 05/04/21 17:52 05/05/21 21:25 Chlordiazepoxide (*Crx) 10 Mg Capsule PO 10 mg Q8H PRN Administration Anxiety/withdrawal Enoxaparin Sodium 40 mg 05/05/21 09:00 05/05/21 09:05 Enoxaparin 40 Mg/0.4 Ml Syringe SUB-Q 40 mg DAILY CHARISMA Administration Ergocalciferol 50,000 unit 05/05/21 09:00 05/05/21 11:11 Ergocalciferol 50,000 Unit Capsule PO 50,000 unit WEEKLY CHARISMA Administration Folic Acid 1 mg 05/05/21 09:00 05/05/21 09:04 Folic Acid 1 Mg Tablet PO 1 mg DAILY CHARISMA Administration Levothyroxine Sodium 75 mcg 05/05/21 13:31 05/06/21 05:32 Levothyroxine Sodium 75 Mcg Tablet PO 75 mcg DAILY@0630 CHARISMA Administration Multivitamins/Calcium 1 tablet 05/05/21 09:00 05/05/21 09:04 Therapeutic Multivitamins/Minerals Tab (*Bkc) PO 1 tablet QAM [facility] Administration Thiamine HCl 100 mg 05/05/21 09:00 05/05/21 09:04 Thiamine Hcl 100 Mg Tablet PO 100 mg QAM [facility] Administration Vitamin B Complex 1 cap 05/05/21 09:00 05/05/21 09:04 Vitamin B Complex Capsule PO 1 cap DAILY CHARISMA Administration Radiology Results: ITS Impressions Chest X-Ray 05/04/21 18:15 IMPRESSION: 1. No acute cardiopulmonary disease. Head CT 05/04/21 18:31 IMPRESSION: 1. Normal head CT. No fracture or acute intracranial process. Cervical Spine CT 05/04/21 18:34 IMPRESSION: 1. Multilevel severe bilateral cervical facet osteoarthritis and mild disc disease at C5-C6. No acute osseous abnormality. 2. Mild emphysema. Ankle X-Ray 05/05/21 17:15 IMPRESSION: 1. Interval casting the distal right fibular fracture which remains in near-anatomic alignment.
[2021-05-06 08:52] LABS: Vitamin D 25 Hydroxy 37.2 ng/mL
[2021-05-06] MEDS: THERAPEUTIC MULTIVITAMINS/MINERALS TAB (*BKC) 1 TABLET PO (09:00)
[2021-05-06] MEDS: ENOXAPARIN 40 MG/0.4 ML SYRINGE SUB-Q (09:00)
[2021-05-06] MEDS: VITAMIN B COMPLEX CAPSULE 1 CAP PO (09:00)
[2021-05-06] MEDS: THIAMINE HCL 100 MG TABLET PO (09:00)
[2021-05-06] MEDS: FOLIC ACID 1 MG TABLET PO (09:39)
--- NOTE | 2021-05-06 09:46 | PM.IMPN ---
Progress Note: A&P Assessment and Plan (1) Closed right malleolar fracture: Code(s): S82.891A - Other fracture of right lower leg, initial encounter for closed fracture Status: Acute Assessment and Plan: Seen by orthopedics, continue elevation and pain control (2) Bimalleolar fracture of left ankle: Qualifiers: Encounter type: initial encounter Fracture type: closed Qualified Code(s): S82.842A - Displaced bimalleolar fracture of left lower leg, initial encounter for closed fracture Code(s): S82.842A - Displaced bimalleolar fracture of left lower leg, initial encounter for closed fracture Status: Acute Assessment and Plan: Seen by orthopedics,continue elevation and pain control (3) Fall from ground level: Code(s): W18.30XA - Fall on same level, unspecified, initial encounter Status: Acute Assessment and Plan: Accidental fall (4) Tobacco dependence: Code(s): F17.200 - Nicotine dependence, unspecified, uncomplicated Status: Acute Assessment and Plan: Advised to quit smoking (5) Daily consumption of alcohol: Code(s): Z78.9 - Other specified health status Status: Acute Assessment and Plan: adviced to quit, ciwa protocol in hospital (6) Osteoporosis: Code(s): M81.0 - Age-related osteoporosis without current pathological fracture Status: Acute Assessment and Plan: chronic problem (7) Hypothyroidism: Code(s): E03.9 - Hypothyroidism, unspecified Status: Acute Assessment and Plan: chronic problem, pt is on levothyroxine Subjective Date/time seen: 05/06/21 09:46 Interval history: Pt sustained L bimalleolar fracture and R closed fracture after accidental fall. Pt having pain in both ankles and feet awaiting surgery once more stable. Pt has history of osteoporosis, hypothyroidism, daily alcohol consumption, and vitamin-D deficiency. Pt had casts placed yesterday on both legs, pt is able to use her upper body for some ADLs, but pt is unable to transfer with both legs in casts. Review of Systems Review of Systems: All systems reviewed & are unremarkable except as noted in HPI and below Exam Const: General: cooperative and healthy appearing; No in distress Nutritional Appearance: overweight Orientation/consciousness: oriented to person HENMT: Head: normal to inspection Resp: Effort & Inspection: no respiratory distress Auscultation: no rhonchi and no wheezes Cardio: Rate: regular rate Rhythm: regular rhythm GI: Inspection: normal to inspection GI Palp: No abdominal tenderness, No Guarding due to palpation present (GI) and No Hepatomegaly present Auscultation: normal bowel sounds Extrem: Other: both lower legs in casts Objective Data Vital Signs Vital Signs: Vital Signs - 24 hr 05/05/21 12:00 05/05/21 20:00 05/05/21 20:03 Temperature 36.3 C L Pulse Rate 79 82 Respiratory Rate 16 18 Blood Pressure 153/77 H 146/79 H Pulse Oximetry 98 98 05/05/21 22:00 05/06/21 04:00 05/06/21 06:00 Temperature 36.1 C L 36.1 C L Pulse Rate 95 82 Respiratory Rate 21 H 21 H Blood Pressure 146/79 H 146/79 H 138/85 Pulse Oximetry 100 100 Intake/Output Intake/Output: Intake & Output 05/03/21 05/04/21 05/05/21 05/06/21 23:59 23:59 23:59 23:59 Intake Total 2200 650 Output Total 1350 800 Balance 850 -150 Meds/Results Medications: Active Medications Generic Name Dose Route Start Last Admin Trade Name Freq PRN Reason Stop Dose Admin Acetaminophen 650 mg 05/04/21 15:10 05/05/21 21:24 Acetaminophen 325 Mg Tablet PO 650 mg Q4H PRN Administration Mild Pain (1-3) or Fever Hydrocodone Bitart/Acetaminophen 1 tab 05/06/21 07:19 Hydrocodone/Acetaminophen (*Crx) 5-325 Mg Tablet PO Q4H PRN Pain Rated 4-6 Chlordiazepoxide HCl 10 mg 05/04/21 17:52 05/05/21 21:25 Chlordiazepoxide (*Crx) 10 Mg Capsule PO 10 mg
[2021-05-06 12:00] VITALS: BP 155/81; PULSE 102; RESP 16; TEMP 36.3; O2SAT 100
[2021-05-06] MEDS: ACETAMINOPHEN 325 MG TABLET 650 MG PO ×2 (13:55→20:35)
[2021-05-06 19:30] VITALS: BP 133/77; PULSE 79; RESP 17; TEMP 36.6; O2SAT 100
[2021-05-06] MEDS: chlordiazePOXIDE (*CRX) 10 MG CAPSULE PO (20:36)
[2021-05-06 21:44] VITALS: O2SAT 99
[2021-05-07] VITALS: BP 133/77
[2021-05-07] MEDS: HYDROcodone/acetaminophen (*CRX) 5-325 MG TABLET 1 TAB PO ×2 (00:16→23:42)
[2021-05-07 03:23] VITALS: BP 145/83; PULSE 72; RESP 17; TEMP 35.9; O2SAT 100
[2021-05-07 04:00] VITALS: BP 145/83
[2021-05-07] MEDS: LEVOTHYROXINE SODIUM 75 MCG TABLET PO (05:50)
[2021-05-07] MEDS: ACETAMINOPHEN 325 MG TABLET 650 MG PO ×3 (05:51→18:05)
[2021-05-07] MEDS: ENOXAPARIN 40 MG/0.4 ML SYRINGE SUB-Q (09:12)
[2021-05-07 09:14] VITALS: RESP 18; O2SAT 100
[2021-05-07] MEDS: VITAMIN B COMPLEX CAPSULE 1 CAP PO (09:14)
[2021-05-07] MEDS: THERAPEUTIC MULTIVITAMINS/MINERALS TAB (*BKC) 1 TABLET PO (09:14)
[2021-05-07] MEDS: FOLIC ACID 1 MG TABLET PO (09:14)
[2021-05-07] MEDS: THIAMINE HCL 100 MG TABLET PO (09:14)
[2021-05-07 12:00] VITALS: BP 149/64; PULSE 85; RESP 20; O2SAT 99
--- NOTE | 2021-05-07 13:32 | PM.IMPN ---
Progress Note: A&P Assessment and Plan (1) Closed right malleolar fracture: Code(s): S82.891A - Other fracture of right lower leg, initial encounter for closed fracture Status: Acute Assessment and Plan: Seen by orthopedics, continue elevation and pain control. Pt to do more with physical therapy today with transfers. Pt wants to go home and return for orthopedic surgery. (2) Bimalleolar fracture of left ankle: Qualifiers: Encounter type: initial encounter Fracture type: closed Qualified Code(s): S82.842A - Displaced bimalleolar fracture of left lower leg, initial encounter for closed fracture Code(s): S82.842A - Displaced bimalleolar fracture of left lower leg, initial encounter for closed fracture Status: Acute Assessment and Plan: Seen by orthopedics,continue elevation and pain control. Pt to do more with physical therapy today with transfers. Pt wants to go home and return for orthopedic surgery. (3) Fall from ground level: Code(s): W18.30XA - Fall on same level, unspecified, initial encounter Status: Acute Assessment and Plan: Accidental fall (4) Tobacco dependence: Code(s): F17.200 - Nicotine dependence, unspecified, uncomplicated Status: Acute Assessment and Plan: Advised to quit smoking (5) Daily consumption of alcohol: Code(s): Z78.9 - Other specified health status Status: Acute Assessment and Plan: adviced to quit, ciwa protocol in hospital (6) Osteoporosis: Code(s): M81.0 - Age-related osteoporosis without current pathological fracture Status: Acute Assessment and Plan: chronic problem (7) Hypothyroidism: Code(s): E03.9 - Hypothyroidism, unspecified Status: Acute Assessment and Plan: chronic problem, pt is on levothyroxine Subjective Date/time seen: 05/07/21 13:32 Interval history: Pt sustained L bimalleolar fracture and R closed fracture after accidental fall. Pt having pain in both ankles and feet awaiting surgery once more stable. Pt has history of osteoporosis, hypothyroidism, daily alcohol consumption, and vitamin-D deficiency. Pt had casts placed yesterday on both legs, pt is able to use her upper body for some ADLs, but pt is unable to transfer with both legs in casts. Pt to do more with physical therapy today with transfers. Pt wants to go home and return for orthopedic surgery. Review of Systems Review of Systems: All systems reviewed & are unremarkable except as noted in HPI and below Exam Narrative: General: Well-developed, thin female HEENT: Normocephalic, atraumatic Neck: Supple Respiratory: Aside from faint expiratory wheezing lungs are clear to auscultation bilaterally. Cardiovascular: Regular rate and rhythm with S1-S2. Gastrointestinal: Abdomen is soft, nontender, and nondistended with positive bowel sounds. Skin: Warm and dry. Palmar erythema. Extremities: r leg with hard cast l leg with splint Neurological: Alert and oriented x4. Cranial nerves 2-12 are grossly intact. Objective Data Vital Signs Vital Signs: Vital Signs - 24 hr 05/06/21 19:30 05/06/21 21:44 05/07/21 00:00 Temperature 36.6 C Pulse Rate 79 Respiratory Rate 17 Blood Pressure 133/77 133/77 Pulse Oximetry 100 99 05/07/21 03:23 05/07/21 04:00 05/07/21 09:14 Temperature 35.9 C L Pulse Rate 72 Respiratory Rate 17 18 Blood Pressure 145/83 H 145/83 H Pulse Oximetry 100 100 Intake/Output Intake/Output: Intake & Output 05/04/21 05/05/21 05/06/21 05/07/21 23:59 23:59 23:59 23:59 Intake Total 2200 2520 900 Output Total 1350 2300 Balance 850 220 900 Meds/Results Medications: Active Medications Generic Name Dose Route Start Last Admin Trade Name Freq PRN Reason Stop Dose Admin Acetaminophen 650 mg 05/04/21 15:10 05/07/21 12:24 Acetaminophen 325 Mg Tablet PO 650 mg Q4H PRN Administration
--- NOTE | 2021-05-07 14:31 | PM.PNORT ---
Progress Note: A&P Additional Plan Patient is doing well. She is much more comfortable in the splint on the left in the cast the right. Her surgery for repair of the bimalleolar left ankle fracture scheduled for this Monday. She has decided she would like to go home. She assures me that her was very able body and strong can easily lift her and move her from to bed to chair to wheelchair to commode. I have stressed with her that she must not put any weight or pressure on either heel. The nurse is going to teach her how to give her Lovenox injection by given her some practice shots to administer today and she will give these to herself at home every 9:00 a.m. the last dose at Monday. I warned her about not using any aspirin or anti-inflammatory medications and she should avoid any smoking and avoiding nicotine products because of increased risk of skin edge necrosis and infection. For swelling is down enough by Monday we will proceed with open reduction internal fixation of the bimalleolar left ankle fracture at that time. Subjective Subjective Date/Time Seen: 05/07/21 14:31 Objective Data Vital Signs Vital Signs: Vital Signs - 24 hr 05/06/21 19:30 05/06/21 21:44 05/07/21 00:00 Temperature 36.6 C Pulse Rate 79 Respiratory Rate 17 Blood Pressure 133/77 133/77 Pulse Oximetry 100 99 05/07/21 03:23 05/07/21 04:00 05/07/21 09:14 Temperature 35.9 C L Pulse Rate 72 Respiratory Rate 17 18 Blood Pressure 145/83 H 145/83 H Pulse Oximetry 100 100 Intake/Output Intake/Output: Intake & Output 05/04/21 05/05/21 05/06/21 05/07/21 23:59 23:59 23:59 23:59 Intake Total 2200 2520 900 Output Total 1350 2300 Balance 850 220 900 Meds/Results Medications: Active Medications Generic Name Dose Route Start Last Admin Trade Name Freq PRN Reason Stop Dose Admin Acetaminophen 650 mg 05/04/21 15:10 05/07/21 12:24 Acetaminophen 325 Mg Tablet PO 650 mg Q4H PRN Administration Mild Pain (1-3) or Fever Hydrocodone Bitart/Acetaminophen 1 tab 05/06/21 07:19 05/07/21 00:16 Hydrocodone/Acetaminophen (*Crx) 5-325 Mg Tablet PO 1 tab Q4H PRN Administration Pain Rated 4-6 Chlordiazepoxide HCl 10 mg 05/04/21 17:52 05/06/21 20:36 Chlordiazepoxide (*Crx) 10 Mg Capsule PO 10 mg Q8H PRN Administration Anxiety/withdrawal Enoxaparin Sodium 40 mg 05/05/21 09:00 05/07/21 09:12 Enoxaparin 40 Mg/0.4 Ml Syringe SUB-Q 40 mg DAILY [facility]ISMA Administration Ergocalciferol 50,000 unit 05/05/21 09:00 05/05/21 11:11 Ergocalciferol 50,000 Unit Capsule PO 50,000 unit WEEKLY [facility]ISMA Administration Folic Acid 1 mg 05/05/21 09:00 05/07/21 09:14 Folic Acid 1 Mg Tablet PO 1 mg DAILY CHARISMA Administration Levothyroxine Sodium 75 mcg 05/05/21 13:31 05/07/21 05:50 Levothyroxine Sodium 75 Mcg Tablet PO 75 mcg DAILY@0630 CHARISMA Administration Multivitamins/Calcium 1 tablet 05/05/21 09:00 05/07/21 09:14 Therapeutic Multivitamins/Minerals Tab (*Bkc) PO 1 tablet QAM [facility] Administration Thiamine HCl 100 mg 05/05/21 09:00 05/07/21 09:14 Thiamine Hcl 100 Mg Tablet PO 100 mg QAM [facility] Administration Vitamin B Complex 1 cap 05/05/21 09:00 05/07/21 09:14 Vitamin B Complex Capsule PO 1 cap DAILY CHARISMA Administration Radiology Results: ITS Impressions Chest X-Ray 05/04/21 18:15 IMPRESSION: 1. No acute cardiopulmonary disease. Head CT 05/04/21 18:31 IMPRESSION: 1. Normal head CT. No fracture or acute intracranial process. Cervical Spine CT 05/04/21 18:34 IMPRESSION: 1. Multilevel severe bilateral cervical facet osteoarthritis and mild disc disease at C5-C6. No acute osseous abnormality. 2. Mild emphysema. Ankle X-Ray 05/05/21 17:15 IMPRESSION: 1. Interval casting the distal right fibular fracture which remains in near-anatomic alignment.
--- NOTE | 2021-05-07 15:48 | PM.DS ---
DS: Admitting Diagnosis Discharge Date 05/08/2021 Admitting Diagnosis Ankle pain after fall. DS: Discharge Diagnosis Discharge Diagnosis (1) Closed right malleolar fracture: Code(s): S82.891A - Other fracture of right lower leg, initial encounter for closed fracture Status: Acute Assessment and Plan: Seen by orthopedics, continue elevation and pain control. Pt can be discharged but must follow specific instructions non weight bearing on both legs, Lovenox shots until Monday. Return for surgery on Monday. Pt will be off and will take care of her at home. (2) Bimalleolar fracture of left ankle: Qualifiers: Encounter type: initial encounter Fracture type: closed Qualified Code(s): S82.842A - Displaced bimalleolar fracture of left lower leg, initial encounter for closed fracture Code(s): S82.842A - Displaced bimalleolar fracture of left lower leg, initial encounter for closed fracture Status: Acute Assessment and Plan: Seen by orthopedics, continue elevation and pain control. Pt can be discharged but must follow specific instructions non weight bearing on both legs, Lovenox shots until Monday. Return for surgery on Monday. Pt will be off and will take care of her at home. (3) Fall from ground level: Code(s): W18.30XA - Fall on same level, unspecified, initial encounter Status: Acute Assessment and Plan: Accidental fall (4) Tobacco dependence: Code(s): F17.200 - Nicotine dependence, unspecified, uncomplicated Status: Acute Assessment and Plan: Advised to quit smoking, no nicotine products until surgery (5) Daily consumption of alcohol: Code(s): Z78.9 - Other specified health status Status: Acute Assessment and Plan: Adviced to quit alcholol use (6) Osteoporosis: Code(s): M81.0 - Age-related osteoporosis without current pathological fracture Status: Acute Assessment and Plan: Chronic problem - alendronate stopped for short time until after surgery (7) Hypothyroidism: Code(s): E03.9 - Hypothyroidism, unspecified Status: Acute Assessment and Plan: Chronic problem, pt is on levothyroxine DS: Summary Hospital Course Hospital Course: Seen by orthopedics, continue elevation and pain control. Pt can be discharged but must follow specific instructions non weight bearing on both legs, Lovenox shots until Monday. Return for surgery on Monday. Pt will be off and will take care of her at home Time Spent with Patient Time attestation: Total time spent providing and/or coordinating discharge services:45 minutes on day of discharge Exam Narrative: General: Well-developed, thin female HEENT: Normocephalic, atraumatic Neck: Supple Respiratory: Aside from faint expiratory wheezing lungs are clear to auscultation bilaterally. Cardiovascular: Regular rate and rhythm with S1-S2. Gastrointestinal: Abdomen is soft, nontender, and nondistended with positive bowel sounds. Skin: Warm and dry. Palmar erythema. Extremities: r leg with hard cast, l leg with splint Neurological: Alert and oriented x4. Cranial nerves 2-12 are grossly intact. Discharge Plan Discharge Attending physician on discharge: Yolande Benitez Consulting providers: Rah Roche ; Denise Zamudio Discharging Clinician: Yolande Benitez Anticipated Discharge Date/Time: 05/07/21 15:24 Patient Disposition: Home, Self-Care Activity: follow weight bearing status and other - see discharge instructions Diet: regular Discharge Instructions: Discontinue the Lovenox after does on Monday. Do not give Lovenox on MondayMay 11 or MondayMay 12. Patient is scheduled to return to the hospital on Monday the for open reduction internal fixation of left ankle bimalleolar fractures. She must be NPO after midnight
--- NOTE | 2021-05-07 17:27 | PCCCNOTE ---
Rec'd call from RN stating Dr talking about discharging pt tonight on Lovenox 40 mg daily x 3 days. Per [facility] pt's cost will be $11.32. Pharmacy closing at 6 pm tonight and will open at 9 am tomorrow. Notified RN.
[2021-05-07 21:24] VITALS: BP 136/84; PULSE 76; RESP 14; TEMP 36.1; O2SAT 100
[2021-05-07] MEDS: chlordiazePOXIDE (*CRX) 10 MG CAPSULE PO (22:29)
[2021-05-08] MEDS: HYDROcodone/acetaminophen (*CRX) 5-325 MG TABLET 1 TAB PO ×2 (04:42→10:10)
[2021-05-08 05:36] VITALS: BP 138/66; PULSE 74; RESP 14; TEMP 36; O2SAT 100
[2021-05-08] MEDS: LEVOTHYROXINE SODIUM 75 MCG TABLET PO (07:00)
[2021-05-08] MEDS: THIAMINE HCL 100 MG TABLET PO (08:54)
[2021-05-08] MEDS: ENOXAPARIN 40 MG/0.4 ML SYRINGE SUB-Q (08:54)
[2021-05-08] MEDS: FOLIC ACID 1 MG TABLET PO (08:54)
[2021-05-08] MEDS: VITAMIN B COMPLEX CAPSULE 1 CAP PO (08:54)
[2021-05-08] MEDS: THERAPEUTIC MULTIVITAMINS/MINERALS TAB (*BKC) 1 TABLET PO (08:54)
--- NOTE | 2021-05-08 10:00 | PCPTNOTE ---
Patient declined to transfer at this time, and requested to wait until her arrives to take her home today. RN to call therapy when patient's arrives.
== END 2021-05-08 11:44 | disposition home or self-care (01) | DRG 563 ==
LOC: ANHED 17:32 → ANH3MEDSUR 17:43 → ANH2MED 19:13
PROVIDERS: Orthopaedic Surgery; Physician Assistant; Admitting Provider Internal Medicine; Emergency Provider Emergency Medicine; PCP Physician Assistant; Visit Provider Family Medicine
DX: S82.842A Displaced bimalleolar fracture of left lower leg, initial encounter for closed fracture (principal); S82.61XA Displaced fracture of lateral malleolus of right fibula, initial encounter for closed fracture; W10.9XXA Fall (on) (from) unspecified stairs and steps, initial encounter; Y93.9 Activity, unspecified; Y92.008 Other place in unspecified non-institutional (private) residence as the place of occurrence of the external cause; Y99.9 Unspecified external cause status; M81.0 Age-related osteoporosis without current pathological fracture; Z88.0 Allergy status to penicillin; F17.210 Nicotine dependence, cigarettes, uncomplicated; E03.9 Hypothyroidism, unspecified; E55.9 Vitamin D deficiency, unspecified
CPT/HCPCS: 29515; 36415; 70450; 71045; 72125; 73600; 73610; 80053; 82306; 83735; 84439; 84443; 84480; 85025; 85610; 85730; 96372; 97162; 97165; 97530; 99285; A9270; G0378; J1650

== ENCOUNTER 2021-05-12 06:00 | Inpatient (IN) | payer OTHER, SELFPAY ==
[2021-05-10 08:21] VITALS: BMI 19.3
--- NOTE | 2021-05-10 08:42 | PC.NURSE ---
Report to the Outpatient Waiting Room, entrance under the green pavilion located off [facility], at time 1130 on date 05/12/21. OR Time: 1330. - You and your visitor will be asked a series of questions to screen for COVID 19 for your protection. - A mask is required within the hospital. - Only one visitor is allowed at this time. Patient visitors will be guided where to wait when not with patient. Preoperative COVID Testing Requirements: No COVID Test needed if: (proof is required; if not received patient will have Rapid Test prior to entry) - Patient has received COVID Vaccine at least 14 days prior to procedure date or - Patient has positive COVID test result within last 90 days of surgery date. COVID Test needed if above criteria is not met If not COVID vaccinated a COVID test must be conducted within 72 hours of surgery and patient is asked to isolate self from time of testing until procedure. You will go to the [facility] for your COVID testing. The [facility] site is located at the corner of [address] [facility]. You will only be called if COVID results are positive and your surgeon may reschedule your elective surgery date. Patients may have clear liquids (water, carbonated beverages, clear teas, apple juice) until 3 hours prior to surgery with a maximum of 20 ounces. - No food from midnight until time of surgery - Infants may have breast milk until 4 hours before surgery, infant formula 6 hours prior to surgery. - Children will be allowed to drink immediately following surgery. If applicable, please bring a bottle or sippy cup to assist with drinking. Juice, water, soda, and popsicles are readily available. For infants on formula, please bring formula the day of surgery. Pacifiers are allowed. Take the following medications with a SIP of water the morning of surgery: CHLORDIAZEPOXIDE, LEVOTHYROXINE, PAIN PILL (IF NEEDED) Medications to discontinue per physician: VITAMINS/SUPPLEMENTS Date to take last dose: 05/08/[address] HALE Please no make-up, nail cuban, hairspray, perfume, deodorant, or body powder the day of surgery. No jewelry (including any body piercings) or valuables the day of surgery, leave them at home. Please take a shower or bath the night before, or the morning of, surgery with an antibacterial soap. Wear comfortable, loose fitting clothing. Children are encouraged to wear pajamas. - Jewelry must be removed prior to entering the operating room. Rings and piercings that are not removed may be cut off. - The hospital will not accept responsibility for valuables. - Please leave all valuables, including medications, at home the day of surgery. If you are going home after surgery, a licensed driver guide must drive you home. - NO public transportation without another adult. - We recommend that an adult stay with you for 24 hours following discharge. - We also recommend that you do not drive, make important decision, drink alcoholic beverages, or take any drugs that were not prescribed by your health care provider for at least 24 hours after your discharge time. For Pediatric surgeries, we recommend two adults accompany the child home (only one inside the building at this time). Follow any additional instructions given to you from your surgeon. Telephone instructions given to NING ANTONIO and asked if any additional questions and then verbalized understanding. Patient advised to call surgeon office or pre surgery nurse liaison [phone] if any additional questions.
[2021-05-12] VITALS (10 sets, daily range): BP systolic 97–156; BP diastolic 53–101; PULSE 74–102; RESP 12–20; TEMP 36.1–37.1; O2SAT 97–100
--- NOTE | ~2021-05-12 | XR_ITS ---
EXAMINATION: XR surgery orthopedic DATE: 05/12/2021 16:09 INDICATION: Left ankle fracture post reduction and internal fixation. TECHNIQUE: 8 fluoroscopic images of the left ankle were obtained during procedure performed by Dr. Bear beckham. Radiologist was not present for the imaging or procedure. The amount of fluoroscopy time used during this procedure was 1.5 minutes. Total DAP was 0.111 mGycm^2 COMPARISON: 05/04/2021 FINDINGS: Cut In Station Operator image redemonstrates and mildly displaced oblique fracture of the lateral malleolus and nondisp laced transverse fracture of the medial malleolus. Subsequent images demonstrate open reduction and i nternal fixation of the fracture with first a lateral plate and screw fixation along the distal fibul a and subsequently placement over guide pins of a pair of cannulated lag screws spanning the medial m alleolar fracture. Alignment post fixation appears essentially anatomic with a congruent ankle mortis e. There is also a nondisplaced coronally oriented fracture across the posterior most aspect of the p osterior malleolus which is seen only on the lateral projections and which remains without fixation. IMPRESSION: 1. Trimalleolar fracture at the left ankle with essentially anatomic alignment post internal fixation of both the medial and lateral malleolar fractures. See procedure note for further detail. Reviewed, dictated and finalized at location A. UE KILN DRAWER
--- NOTE | ~2021-05-12 | XR_ITS ---
EXAMINATION: XR ankle RT 2V EXAM DATE: 05/12/2021 12:15 INDICATION: Fracture follow-up. TECHNIQUE: Right ankle frontal, oblique, lateral projections. Comparison is made to prior examinatio n from 05/05/2021. FINDINGS: There is a casted right distal fibular metaphyseal fracture extending into the superolater al aspect of the ankle mortise. The mortise relationship itself appears intact. Alignment and positio n of this appears unchanged. Possible small avulsion fracture off the anterior aspect of the ankle joint, donor site uncertain. De tails are obscured by cast. IMPRESSION: 1. Right fibular oblique fracture into mortise. 2. Possible anterior ankle joint avulsion fracture. Reviewed, dictated and finalized at location A. BILITATION PHYSICIAN
--- NOTE | 2021-05-12 08:03 | ECG_ITS ---
Measurements Intervals [place] Rate: 69 P: 43 SD: 168 QRS: 34 QRSD: 82 T: 36 QT: 396 QTc: 426 Interpretive Statements SINUS RHYTHM BASELINE ARTIFACT- I, III NORMAL ECG Electronically Signed On 05-12-2021 12:54:21 SALES PROMOTER by Luke Edmondson D.O.
[2021-05-12] MEDS: LACTATED RINGERS 1,000 ML 30 ML IV CONT ×2 (12:25→17:01)
[2021-05-12 12:30] LABS: Hematocrit 34.8 % (37.0-47.0); Hemoglobin 11.5 g/dL (12.0-15.0); Mean Corpuscular Hemoglobin 33.4 pg (26-34); Mean Corpuscular Volume 101.2 fl (80-100); Mean Platelet Volume 9.1 fl (7.4-10.4); Platelet Count Result 357 k/mm3 (150-375); Red Blood Count 3.44 M/mm3 (4.2-5.4); Red Cell Distribution Width 11.9 % (11.5-14.5); White Blood Count 6.3 K/mm3 (4.5-10.0)
--- NOTE | 2021-05-12 12:51 | WPDANESEPPF ---
Anes - Initial Pre Proc Eval Procedure: Operation Date: 05/12/21 13:30 Proposed Procedures p Open Reduction Internal Fixation Left Bimalleolar Fracture - Rah Roche MD Date/Time: 05/12/21 12:51 Surgeon: Rah Roche MD Pre Op Diagnosis: left bimalleolar ankle fx Patient Data Age: 55 Gender: F Height: 1.52 m Weight: 44.91 kg Allergies Allergy/AdvReac Type Severity Reaction Status Date / Time Penicillins Allergy Mild Unknown Verified 05/12/21 12:32 amoxicillin Allergy Unknown RED Verified 05/12/21 12:32 STREAKS TO FACE AND THROAT, ITCHING morphine Allergy Unknown ITCHING Verified 05/12/21 12:32 nitrofurantoin AdvReac Intermediate bloating Verified 05/12/21 12:32 [From Macrobid] ciprofloxacin AdvReac Other Verified 05/12/21 12:32 Home Medications Medication Instructions Recorded Confirmed Type dicyclomine 20 mg PO TID PRN 05/04/21 05/06/21 History enoxaparin [Lovenox] 40 mg SUBCUT DAILY #2 ml 05/06/21 05/12/21 Rx acetaminophen [Mapap 650 mg PO Q4H PRN #30 tablet 05/07/21 05/10/21 Rx (acetaminophen)] chlordiazepoxide HCl 10 mg PO Q8H PRN #14 cap 05/07/21 05/12/21 Rx ergocalciferol (vitamin D2) 50,000 unit PO WEEKLY #30 cap 05/07/21 05/12/21 Rx [Vitamin D2] folic acid 1 mg PO DAILY #30 tablet 05/07/21 05/12/21 Rx hydrocodone-acetaminophen 1 tablet PO Q4H PRN #20 tablet 05/07/21 05/12/21 Rx levothyroxine [Synthroid] 75 mcg PO DAILY@0630 #60 tablet 05/07/21 05/12/21 Rx onadptjs-hlak-MZ-calcium-mins 1 tablet PO QAM #30 tablet 05/07/21 05/12/21 Rx [Thera M Plus (ferrous fumarat)] thiamine HCl (vitamin B1) [Vitamin 100 mg PO QAM #30 tablet 05/07/21 05/12/21 Rx B-1] vitamin B complex [Vitamins B 1 cap PO DAILY #60 cap 05/07/21 05/12/21 Rx Complex] Laboratory Tests 05/12/21 12:20 WBC 6.3 K/mm3 K/mm3 (4.5-10.0) RBC 3.44 M/mm3 L M/mm3 (4.2-5.4) Hgb 11.5 g/dL L g/dL (12.0-15.0) Hct 34.8 % L % (37.0-47.0) MCV 101.2 fl H fl (80-100) MCH 33.4 pg pg (26-34) MCHC 33.0 g/dl g/dl (32-36) RDW 11.9 % % (11.5-14.5) Plt Count 357 k/mm3 k/mm3 (150-375) MPV 9.1 fl fl (7.4-10.4) Patient hx anesthesia problems: none and other (possibly allergic to hiral local anesthetics) Family hx anesthesia problems: none Results Review: All pre-operative results and documents have been reviewed as part of the pre-operative evaluation. [facility] Past Medical History Medical History Daily consumption of alcohol Hypothyroidism Osteoporosis Tobacco dependence Vitamin D deficiency Surgical History Surgical History History of 2 sections History of left breast biopsy History of right salpingo-oophorectomy Family History Family History Mother Cerebrovascular accident Father Acute myocardial infarction Social History Social History Social History: Surrogate decision maker: Efrain Bates, spouse. Code status: Full code. Smoking packs per day: 1 Smoking cigarettes per day: 20.0 Years smoked: 30 Smoking pack-years: 30.00 Smoking status: Former smoker Tobacco type: cigarettes Second hand tobacco smoke exposure: Yes Smoking end date: 05/04/21 Alcohol intake: former Drinks per week: 40 Alcohol use details: 6-7 BEERS/DAY UNTIL 05/04/21 Substance use: never Substance use type: does not use Living arrangements: with family Additional living arrangements comments: The patient lives in [place] with her and a son. Three of their children are grown an outside of the home. 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 Spiritual care concerns: No Anes - Eval Final PreProcedure Day of Procedure 05/12/21 12:51 Patient we
[2021-05-12] MEDS: KETOROLAC 15 MG/ML VIAL (*BKC) IV PUSH (12:52)
--- NOTE | 2021-05-12 13:17 | WPDHPUPDATE1 ---
History and Physical Update Update Date/Time: 05/12/21 13:17 History and Physical has been reviewed, including an updated exam of the patient. There are no changes in her history or symptoms. X-rays of the right ankle in the cast show mildly displaced Quinones B type lateral malleolus fracture long oblique with medial clear space measuring less than 3 mm identical to the superior clear space. Alignment continues to be appropriate for non operative treatment in a cast and she is comfortable in the cast and states she has no discomfort in the right ankle. Her splint was removed the left ankle and she has diffuse ecchymosis but only mild swelling and the skin is compressible and appropriate for proceeding with open reduction internal fixation of left bimalleolar ankle fracture today. Her CBC showed no change in hemoglobin 11.4 and platelets were 350,000. Risks, benefits, and alternatives have been discussed and questions answered. Patient agrees to proceed with procedure.
[2021-05-12] MEDS: ceFAZolin 2 GM/D5W 50 ML 2 GM/50 ML BAG IVPB (13:39)
[2021-05-12] MEDS: ceFAZolin SODIUM 1 GM VIAL IRRIGATION (14:17)
[2021-05-12] MEDS: ceFAZolin SODIUM 1 GM VIAL IV PUSH (15:54)
--- NOTE | 2021-05-12 17:13 | W.PM.PROC2 ---
Procedure Note - Detailed Date of Procedure 05/12/21 Pre-op Diagnosis left bimalleolar ankle fx Post-op Diagnosis other (Left trimalleolar ankle fracture. Severe osteoporosis) Procedure Performed Open reduction internal fixation left trimalleolar ankle fracture without fixation of posterior lip Surgeon Rah Roche MD Employee Benefits Insurance Agent Molly Anesthesia general Description of Procedure Patient was brought to the operating room and general anesthesia was administered. Bump was placed in the left buttock and the left lower leg and ankle foot prepped in usual fashion after we scrubbed the ankle and foot carefully with chlorhexidine cloth earlier. She received weight based vancomycin and 2 g Ancef preoperatively. Limb was exsanguinated tourniquet elevated to 250 mmHg. A 1/2 inch longitudinal incision was made centered over the lateral malleolus fracture. Dissection was carried down to the fracture site. We looked for branches of superficial peroneal nerve but son none. The fracture was non comminuted. It was a long oblique fracture displaced. Soft organizing hematoma was carefully evacuated from the fracture site. An anatomic reduction was achieved with 2 towel clips style clamps. An interfragmentary screw 2.7 mm was placed. Due to the obliquity of the plane of the fracture it was best to place it from posterior to anterior. The posterior cortex was so soft the drill seemed to just push right through it. There is a little bit better fixation of the anterior spike drilled with the 2 mm hole we used a 2.7 mm screw through the gliding hole. This allowed to us to remove and reposition the more proximal clamp so would not interfere with plate placement. A 1/3 tubular 6 hole Arthrex locking plate was carefully contoured to rest flush on the bone. This would give us 2 screws in the distal fragment 3 in the shaft and 1 screw hole open over the fracture. A cortical screw was placed in the 3rd from proximal hole to compress the plate down the shaft initially not placed fracture a 2 locking screws placed in the distal fragment 2 additional locking screws placed in the shaft. Under fluoro we could see that the position of the hardware screw length and reduction mortise all appropriate. I could see that the inter frag screw was a little bit long and as it had almost no purchase because of her soft bone I elected to simply removed this point as it was not adding to the fixation I suspect that it would loosen and migrate we replaced with a shorter screw. We then approached the medial malleolus fracture through a 2-1/2 inch longitudinal incision centered over the fracture site. There was no comminution and the fracture was carefully VAC with few organizing hematoma. A bone reduction clamp was placed between the medial malleolus distally and the metaphysis proximally. The bone was so soft in the metaphysis that the towel clamp seemed to cut through it with compression. Fortunately we achieved anatomic reduction and we placed 2 K-wires in a parallel fashion perpendicular the fracture line and over these we placed 4.0 cannulated partially-threaded screws which did obtain good purchase fortunately. This gave us anatomic reduction under fluoro. There was a posterior malleolar fracture of the we could see on the lateral view under fluoro that was minimally displaced and essentially extra-articular but making this a trimalleolar ankle fracture. We put the tourniquet down at 88 minutes once we had the guidewires placed in the medial malleolus fracture. There was extra difficulty with the procedure due to the extreme softness of the bone which made bone clamp placement to achieve anatomic reduction more difficult and tenuous. Wounds were irrigated with antibiotic solution. The skin over the medial malleolus seemed to be paper thin and I did not feel that we had adequate closure with 3-0 sub cutaneous Vicryl is alone and we supplemented the closure with 5 0 vertical mattress n
[2021-05-12] MEDS: fentaNYL CITRATE INJ (*CRX) 100 MCG/2 ML VIAL 25 MCG IV PUSH ×2 (17:39→17:42)
--- NOTE | 2021-05-12 18:10 | ADMGEN ---
This patient, Cathy Bates, was admitted to Medical Room 258-01. Patient/family oriented to hospital policies and general routines including ID bracelet, bed and alarms, visiting hours, pain management, procedures, bathroom and other care routines, personal items, smoking policy, room service/diet, and visiting hours. Information on how to activate the Rapid Response Team has been discussed. Patient/Family are encouraged to report perceived risks to care and to ask questions if they do not understand what they are told or what they should do.
[2021-05-12] MEDS: HYDROcodone/acetaminophen (*CRX) 5-325 MG TABLET 1 TAB PO (20:44)
[2021-05-12] MEDS: chlordiazePOXIDE (*CRX) 10 MG CAPSULE PO (22:08)
[2021-05-13] VITALS: BP 131/77; PULSE 100; RESP 16; TEMP 37; O2SAT 98
[2021-05-13] MEDS: HYDROmorphone HCL INJ (*CRX) 1 MG/ML SYR 0.5 MG IV PUSH ×2 (00:11→08:18)
[2021-05-13] MEDS: HYDROcodone/acetaminophen (*CRX) 5-325 MG TABLET 1 TAB PO ×2 (05:08→11:11)
[2021-05-13 05:20] VITALS: BP 124/76; PULSE 99; RESP 18; TEMP 36.4; O2SAT 100
[2021-05-13] MEDS: LEVOTHYROXINE SODIUM 75 MCG TABLET PO (06:07)
[2021-05-13 08:00] VITALS: BP 124/79; PULSE 97; RESP 18; TEMP 36.5; O2SAT 98
[2021-05-13] MEDS: THERAPEUTIC MULTIVITAMINS/MINERALS TAB (*BKC) 1 TABLET PO (08:17)
[2021-05-13] MEDS: THIAMINE HCL 100 MG TABLET PO (08:17)
[2021-05-13] MEDS: SENNA/DOCUSATE SODIUM TABLET 2 TAB PO (08:17)
[2021-05-13] MEDS: polyethylene glycoL 3350 17 GM POWD.PACK PO (08:18)
[2021-05-13] MEDS: FOLIC ACID 1 MG TABLET PO (08:18)
[2021-05-13] MEDS: VITAMIN B COMPLEX CAPSULE 1 CAP PO (08:18)
--- NOTE | 2021-05-13 09:37 | PM.DS ---
DS: Admitting Diagnosis Discharge Date 05/13/2021 Admitting Diagnosis trimalleolar left ankle fracture displaced DS: Discharge Diagnosis Discharge Diagnosis (1) Ankle fracture: Code(s): S82.899A - Other fracture of unspecified lower leg, initial encounter for closed fracture Status: Acute DS: Summary Hospital Course Hospital Course: See paragraph Below. Time Spent with Patient Time attestation: Total time spent providing and/or coordinating discharge services: patient open reduction internal fixation of her trimalleolar left ankle fracture yesterday. Under fluoro we could see that there was a small posterior malleolus fracture that was extra-articular which classifies this left ankle fractures a trimalleolar ankle fracture. Anatomic alignment was achieved. She was noted to have severe osteoporosis and this was discussed the patient. She did need some Dilaudid last night for pain control but her pain has been much better this morning and she feels ready for discharge. She has mastered is transferring with a sliding board as long as her is supporting her legs and she is able to use her hands to transfer from bed to commode at home. She prefers not to go to a rehab facility. DS: Data Data Completed and Pending Labs on day of discharge: Labs from last 24 hours 05/12/21 12:20 WBC 6.3 RBC 3.44 L Hgb 11.5 L Hct 34.8 L MCV 101.2 H MCH 33.4 MCHC 33.0 RDW 11.9 Plt Count 357 MPV 9.1 Discharge Plan Discharge Attending physician on discharge: Rah Roche Discharging Clinician: Rah Roche Anticipated Discharge Date/Time: 05/13/21 14:17 Patient Disposition: Home, Self-Care Activity: no shower and follow weight bearing status Diet: as tolerated Wound Care Instructions: keep dressing dry Discharge Instructions: Continue sliding board transfers with her supporting year calves so that you do not put pressure on her heels to assist with transfers. When in bed there should be a pillow under each calf to keep pressure off the heels. Avoid sitting in a chair for more than 30 minutes as this may cause excessive swelling whenever possible the leg should be elevated above the heart. Excessive swelling in the left leg will cause too much tension on the stitches causing the blood flow to the skin edges to be interrupted which leaves to skin edge and allows infection to get into the ankle. Smoking and nicotine products contribute to skin edge and infection and therefore must be strictly avoided. You will take Eliquis starting this evening at 9:00 p.m. and then 1 pill twice a day at 9am and 9pm for a total of 6 weeks. This is to prevent blood clots. You have already been diagnosed with osteoporosis you have told me. Dr. lina mancini is looking into different treatment options for you. Medications like Prolia are usually started after the fractures are healed. They do not help with fracture healing. Other medications such as Forteo and Tymlos treat osteoporosis and can assist with fracture healing. I do not think those will be necessary as I expect her fractures will heal uneventfully as long as your not smoking. THe osteoporosis in her left ankle was truly severe. I have ordered Citracal plus D 500 mg of calcium 1 pill twice daily and I would suggest that she take this for life. You take a martinez dose of vitamin-D once per week as well that is the ergo calciferol. To prevent constipation while you are taking the hydrocodone he will take the MiraLax and the docasate sodium stool softeners. If you start having diarrhea you can hold the stool softeners. To minimize risk of wound infection, we have prescribed cephalexin antibiotic to take 3 times per day for 5 days. Patient Instructions: Apixaban (By mouth), How to Stop Smoking (DC) Follow-up/Referrals: Rah Roche MD [Physician] - ( Two weeks) Discharge Medications: New hydrocodone-acetam
[2021-05-13] MEDS: chlordiazePOXIDE (*CRX) 10 MG CAPSULE PO (11:13)
== END 2021-05-13 12:18 | disposition home or self-care (01) | DRG 494 ==
LOC: ANHSURGERY 11:38 → ANH2MED 18:26
PROVIDERS: Admitting Provider Orthopaedic Surgery; PCP Physician Assistant; Visit Provider Orthopaedic Surgery
PROC: 0QSH04Z Reposition Left Tibia with Internal Fixation Device, Open Approach (ICD-10-PCS; principal; 2021-05-12 13:30)
DX: S82.852A Displaced trimalleolar fracture of left lower leg, initial encounter for closed fracture (principal); E03.9 Hypothyroidism, unspecified; M81.0 Age-related osteoporosis without current pathological fracture; E55.9 Vitamin D deficiency, unspecified; Z87.891 Personal history of nicotine dependence; Z90.721 Acquired absence of ovaries, unilateral; X58.XXXA Exposure to other specified factors, initial encounter
CPT/HCPCS: 36415; 73600; 85027; 93005; A9270; C1713; C1769; J0690; J1100; J1170; J1885; J2250; J2405; J2704; J3010; J3370; J7120

== ENCOUNTER → 2021-09-07 13:23 | Outpatient (CLI) | payer OTHER, SELFPAY ==
--- NOTE | ~2021-09-07 | MM_ITS ---
EXAMINATION: MM screening linh BI w maria elena HISTORY: Screening mammogram TECHNIQUE: Craniocaudal and mediolateral oblique 3-D tomosynthesis images were obtained and synthetic 2-D images were generated. CAD analysis was submitted and interpreted. COMPARISON: July 27, 2020 diagnostic left mammogram June 05, 2020, January 18, 2019 bilateral screening mammogram examinations BREAST PARENCHYMAL COMPOSITION: There are scattered areas of fibroglandular density. FINDINGS: There is a biopsy marker on the left; history of prior benign left stereotactic breast biop sy. There is no evidence of suspicious mass, calcification, or architectural distortion to suggest ma lignancy in either breast. There has been no suspicious interval change. IMPRESSION: 1. No mammographic evidence of malignancy. 2. Recommend routine screening mammography in one year. BI-RADS Category 1: Negative Reviewed, dictated and finalized at location A.
== END ==
PROVIDERS: Visit Provider Obstetrics & Gynecology Gynecology
DX: Z12.31 Encounter for screening mammogram for malignant neoplasm of breast (principal)
CPT/HCPCS: 77063; 77067

== ENCOUNTER 2022-01-17 14:13 | Outpatient (CLI) | payer OTHER, SELFPAY ==
[2022-01-17 14:49] LABS: Add Urine Microscopic? NO; Appearance Urine Clear (Clear); Bilirubin Urine Negative (Negative); Blood Urine Negative (Negative); Color Urine Yellow (Yellow); Glucose Urine UA Negative (Negative); Ketones Urine Negative (Negative); Leukocyte Esterase Ur Negative LEU/UL (NEGATIVE); Nitrate Urine Negative (Negative); Protein Urine Negative (Negative); Specific Grav Ur <= 1.005 (1.001-1.035); Urobilinogen Urine 0.2 mg/dL (<2.0); pH Urine 5.5 (5.0-9.0)
== END 2022-01-17 14:14 | disposition home or self-care (01) ==
LOC: ANHLAB 14:15
PROVIDERS: PCP Physician Assistant; Visit Provider Physician Assistant
DX: R30.0 Dysuria (principal)
CPT/HCPCS: 81003; 87086

== ENCOUNTER → 2022-02-25 10:08 | Outpatient (CLI) | payer OTHER, SELFPAY ==
--- NOTE | ~2022-02-25 | US_ITS ---
EXAMINATION: US right upper quadrant DATE: 02/25/2022 10:29 INDICATION: Epigastric abdominal pain. TECHNIQUE: Multiple grayscale and Doppler ultrasound images of the abdomen were obtained. COMPARISON: CT abdomen and pelvis 02/25/2020 FINDINGS: Abdominal aorta is normal in caliber. Inferior vena cava is normal. The visualized portions of the head, body, and tail of the pancreas are normal. The liver is normal without focal lesion. Th ere is normal flow in main portal vein. The gallbladder is normal in size. No gallstones or gallbladd er wall thickening. There is no sonographic Abbott sign. The common duct is normal and measures 4 mm. IMPRESSION: 1. No etiology for the patient's symptoms. Reviewed, dictated and finalized at location A.
== END ==
PROVIDERS: PCP Physician Assistant; Visit Provider Physician Assistant
DX: R10.816 Epigastric abdominal tenderness (principal)
CPT/HCPCS: 76705

== ENCOUNTER → 2022-06-28 13:23 | Outpatient (CLI) | payer OTHER, SELFPAY ==
--- NOTE | ~2022-06-28 | DEXA_ITS ---
Bone Density Report Name: NING ANTONIO Age: 56 Sex: Female Ethnicity: White Date of : 1965 Indication: postmenopausal osteoporosis; monitoring treatment; prior fracture; hysterectomy; Referring Provider: ANTONINA WILLIAMSON Study: Bone densitometry was performed. Exam Date: June 28, 2022 Accession number: [id number] Bone Density: Region BMD T-score Z-score Classification AP Spine (L1-L4) 0.842 -1.9 -0.7 Osteopenia Femoral Neck (Left) 0.590 -2.3 -1.2 Osteopenia Total Hip (Left) 0.674 -2.2 -1.4 Osteopenia Femoral Neck (Right) 0.632 -2.0 -0.8 Osteopenia Total Hip (Right) 0.696 -2.0 -1.3 Osteopenia Total Hip Mean 0.685 -2.1 -1.4 Osteopenia World Health Organization criteria for BMD impression classify patients as: Normal (T-score at or above -1.0), Osteopenia (T-score between -1.0 and -2.5), or Osteoporosis (T-score at or below -2.5). 10-year Fracture Risk: FRAX not reported because: Treated for osteoporosis Previous Exams: Region Exam Age BMD T-score BMD Change BMD Change Date g/cm2 vs Baseline vs Previous AP Spine(L1-L4) 06/28/2022 56 0.842 -1.9 0.012 0.085* 06/24/2020 54 0.757 -2.6 -0.073* -0.019 01/08/2018 52 0.776 -2.5 -0.054* -0.054* 12/15/2015 50 0.830 -2.0 Total Hip(Left) 06/28/2022 56 0.674 -2.2 -0.012 0.035* 06/24/2020 54 0.639 -2.5 -0.047* -0.023 01/08/2018 52 0.662 -2.3 -0.024 -0.024 12/15/2015 50 0.686 -2.1 Total Hip(Right) 06/28/2022 56 0.696 -2.0 -0.004 0.043* 06/24/2020 54 0.653 -2.4 -0.047* 0.006 01/08/2018 52 0.647 -2.4 -0.053* -0.053* 12/15/2015 50 0.700 -2.0 *Denotes significance at 95% confidence level, LSC for AP Spine = 0.022 g/cm2, LSC for Total Hip = 0.027 g/cm2 Clinical Information Provided by Patient: Has had a low trauma fracture Smokes Has 3 or more alcoholic drinks per day Is being treated for osteoporosis Has used the following medications: Prolia (i.e. denosumab), Vitamin D, Calcium, LEVOTHYROXINE Has the following medical conditions: Hysterectomy Patient maximum height was 60.2 Menopause Age: 42 Drinks caffeinated beverages Onset of menses at age 11 Number of children 2 Impression: The patient has low bone mass, based on the Left Femoral Neck T-score. The patient has risk factors, including:
== END ==
PROVIDERS: PCP Physician Assistant; Visit Provider Obstetrics & Gynecology Gynecology
DX: Z78.0 Asymptomatic menopausal state (principal); M85.88 Other specified disorders of bone density and structure, other site; M85.852 Other specified disorders of bone density and structure, left thigh; M85.851 Other specified disorders of bone density and structure, right thigh
CPT/HCPCS: 77080

== ENCOUNTER → 2022-09-14 12:55 | Outpatient (CLI) | payer OTHER, SELFPAY ==
--- NOTE | ~2022-09-14 | MM_ITS ---
EXAMINATION: MM screening linh BI w maria elena HISTORY: Screening TECHNIQUE: Craniocaudal and mediolateral oblique 3-D tomosynthesis images were obtained and synthetic 2-D images were generated. CAD analysis was submitted and interpreted. COMPARISON: Comparison to multiple prior studies sequentially, with oldest reviewed study dated 01/08. BREAST PARENCHYMAL COMPOSITION: There are scattered areas of fibroglandular density. FINDINGS: The right breast is stable without evidence for malignancy. There is a small mass in the up per central aspect of the left breast anteriorly. IMPRESSION: 1. New small left breast mass, upper central location, anterior third. 2. Additional mammographic views and possible breast ultrasound are recommended. BI-RADS Category 0: Incomplete: Needs additional imaging evaluation. Reviewed, dictated and finalized at location A. IMPRESSION: 1. New small left breast mass, upper central location, anterior third. 2. Additional mammographic views and possible breast ultrasound are recommended . BI-RADS Category 0: Incomplete: Needs additional imaging evaluation.
== END ==
PROVIDERS: PCP Physician Assistant; Visit Provider Obstetrics & Gynecology Gynecology
DX: Z12.31 Encounter for screening mammogram for malignant neoplasm of breast (principal); N63.22 Unspecified lump in the left breast, upper inner quadrant
CPT/HCPCS: 77063; 77067

== ENCOUNTER → 2022-10-12 10:01 | Outpatient (CLI) | payer OTHER, SELFPAY ==
--- NOTE | ~2022-10-12 | MMUS_ITS ---
EXAMINATION: MM diagnostic linh LT w maria elena, US breast LT limited HISTORY: New small mass reported in upper central left breast TECHNIQUE: Additional 3-D tomosynthesis images of the left breast were performed and synthetic 2-D im ages were generated. CAD analysis was submitted and interpreted. High resolution upper outer quadrant left breast ultrasound was performed. COMPARISON: 09/14/2022 bilateral screening mammogram FINDINGS: MAMMOGRAPHIC FINDINGS: There is a circumscribed approximately 3.5 mm low-density opacity in the upper outer quadrant of the left breast not far from the mid sagittal plane, benign in mammographic appearance. ULTRASOUND: At 2:00 4 cm from the nipple there is a circumscribed sonolucency measuring up to approximately 2.3 m m maximal dimension, without internal vascularity or posterior shadowing. No suspicious mass or shadowing is noted elsewhere in the upper outer quadrant. IMPRESSION: 1. Benign finding 2. Routine annual mammographic screening is recommended BI-RADS Category 2: Benign finding(s). Reviewed, dictated and finalized at location A. IMPRESSION: 1. Benign finding 2. Routine annual mammographic screening is recommended BI-RADS Category 2: Benign finding(s).
== END ==
PROVIDERS: PCP Physician Assistant; Visit Provider Obstetrics & Gynecology Gynecology
DX: R92.8 Other abnormal and inconclusive findings on diagnostic imaging of breast (principal)
CPT/HCPCS: 76642; 77061; 77065; G0279

== ENCOUNTER → 2023-07-05 14:36 | Outpatient (CLI) | payer OTHER, SELFPAY ==
--- NOTE | ~2023-07-05 | XR_ITS ---
XR chest 2V DATE: 07/05/2023 15:02 INDICATION: Cough TECHNIQUE: 2 views COMPARISON: 05/04/2021 portable AP chest FINDINGS: Moderate bilateral hyperinflation. No pulmonary infiltrate or consolidation, pleural effusi on or pulmonary vascular congestion or pneumothorax is detected. Normal heart size. No hilar or mediastinal enlargement. Included skeletal structures are unremarkable. IMPRESSION: Moderate hyperinflation; no active cardiopulmonary disease Reviewed, dictated and finalized at location B. CENSOR
== END ==
PROVIDERS: PCP Physician Assistant; Visit Provider Physician Assistant
DX: R05.9 Cough, unspecified (principal); R91.8 Other nonspecific abnormal finding of lung field
CPT/HCPCS: 71046

== ENCOUNTER 2024-01-18 12:47 | Outpatient (CLI) | payer OTHER, SELFPAY ==
--- NOTE | ~2024-01-18 | MM_ITS ---
EXAMINATION: MM screening linh BI w maria elena HISTORY: Screening TECHNIQUE: Craniocaudal and mediolateral oblique 3-D tomosynthesis images were obtained and synthetic 2-D images were generated. CAD analysis was submitted and interpreted. COMPARISON: Comparison to multiple prior studies sequentially, with oldest reviewed study dated 07/2018. BREAST PARENCHYMAL COMPOSITION: Not dense: There are scattered areas of fibroglandular density. FINDINGS: The right breast is stable without evidence for malignancy. There is a focal asymmetry in t he subareolar location of the left breast, best seen on CC view. IMPRESSION: 1. Focal left breast asymmetry. 2. Additional mammographic views and possible breast ultrasound are recommended. BI-RADS Category 0: Incomplete: Needs additional imaging evaluation. Reviewed, dictated and finalized at location B. IMPRESSION: 1. Focal left breast asymmetry. 2. Additional mammographic views and possible breast ultrasound are recommended . BI-RADS Category 0: Incomplete: Needs additional imaging evaluation.
== END 2024-01-18 12:48 ==
LOC: MICIMG 12:48
PROVIDERS: PCP Nurse Practitioner; Visit Provider Nurse Practitioner
DX: Z12.31 Encounter for screening mammogram for malignant neoplasm of breast (principal); R92.8 Other abnormal and inconclusive findings on diagnostic imaging of breast
CPT/HCPCS: 77063; 77067

== ENCOUNTER 2024-03-12 09:58 | Outpatient (CLI) | payer OTHER, SELFPAY ==
--- NOTE | ~2024-03-12 | MMUS_ITS ---
EXAMINATION: MM diagnostic linh LT w maria elena, US breast LT limited HISTORY: Follow-up left breast asymmetries TECHNIQUE: Additional 3-D tomosynthesis images of the left breast were performed and synthetic 2-D im ages were generated. CAD analysis was submitted and interpreted. High resolution Limited left breast ultrasound was performed. COMPARISON: Comparison to multiple prior studies sequentially, with oldest reviewed study dated 05/19. BREAST PARENCHYMAL COMPOSITION: Not dense: There are scattered areas of fibroglandular density. FINDINGS: MAMMOGRAPHIC FINDINGS: There are persistent stable asymmetries in the periareolar and lateral aspect of the left breast. No discrete mass or architectural distortion. There are no suspicious calcifications. ULTRASOUND: Limited left breast ultrasound: At 6:00, 1 cm from the nipple there is an oval hypoechoic 3 mm mass, likely benign. At 12:00 in the subareolar location there is an antiparallel slightly irregular shaped hypoechoic mass measuring 3 mm. IMPRESSION: 1. Antiparallel slightly irregular shape 3 mm left breast mass near the nipple at 12:00. 2. Ultrasound-guided left breast biopsy recommended. BI-RADS category 4, suspicious findings. Reviewed, dictated and finalized at location B. IMPRESSION: 1. Antiparallel slightly irregular shape 3 mm left breast mass near the nipple at 12:00. 2. Ultrasound-guided left breast biopsy recommended. BI-RADS category 4, suspicious findings.
== END 2024-03-12 09:59 | disposition home or self-care (01) ==
LOC: MICIMG 09:58
PROVIDERS: PCP Obstetrics & Gynecology Gynecology; Visit Provider Obstetrics & Gynecology Gynecology
DX: R92.8 Other abnormal and inconclusive findings on diagnostic imaging of breast (principal)
CPT/HCPCS: 76642; 77061; 77065; G0279

== ENCOUNTER 2024-04-24 07:27 | Outpatient (CLI) | payer OTHER, SELFPAY ==
--- NOTE | ~2024-04-24 | US_ITS ---
CORRECTED REPORT corrected examination description to US breast cyst asp LT w [facility] 04/30/24. This report was recreated on 04/30/24. Original report was STED LIVING ADMINISTRATOR EXAMINATION: US breast cyst asp [place] [facility] [place] DATE: 04/24/2024 16:57 ASSISTED LIVING ADMINISTRATOR INDICATION: Left breast mass seen on prior examination. Biopsy requested. TECHNIQUE: Survey imaging of the left breast was performed. The mass at the 12:00 subareolar position was targeted for aspiration. The procedure and its risk and benefits were discussed with the patient. Risks included but were not limited to pain, bleeding and infection. The patient verbalized understanding and provided written consent. A time-out was performed to document the patient's name, date of , and site of procedure. The patient's left breast was prepped and draped in usual sterile fashion. 1% lidocaine was used for local anesthesia. Utilizing ultrasound guidance, a 22-gauge needle was advanced into the lesion in the left. Aspiration was performed. 1 cc of clear fluid obtained without complication. There is decreased size of small oval mass in the left breast which exhibited enhanced or transmission. This mass measures 3 mm maximum dimension. The patient tolerated procedure without immediate complication. Sterile bandages were applied over the aspiration site(s).] FINDINGS: Partial aspiration of 1 cc clear fluid from cystic lesion of the left breast at 12:00 with decreased size post aspiration. This likely represents a complicated cyst. Short-term follow-up diagnostic left mammogram and ultrasound recommended IMPRESSION: 1. Probable benign complicated cyst of the left breast with partial aspiration. BI-RADS CATEGORY 3-PROBABLY BENIGN FINDING RECOMMENDATION: Six-month follow-up diagnostic left mammogram and Limited left breast ultrasound recommended. Reviewed, dictated and finalized at location B. STED LIVING ADMINISTRATOR MTDD IMPRESSION: 1. Probable benign complicated cyst of the left breast with partial aspiration . BI-RADS CATEGORY 3-PROBABLY BENIGN FINDING RECOMMENDATION: Six-month follow-up diagnostic left mammogram and Limited left breast ultrasound recommended.
== END 2024-04-24 07:28 | disposition home or self-care (01) ==
PROVIDERS: PCP Nurse Practitioner; Visit Provider Surgery
DX: N63.25 Unspecified lump in the left breast, overlapping quadrants (principal); N63.20 Unspecified lump in the left breast, unspecified quadrant
CPT/HCPCS: 19000; 76942

== ENCOUNTER 2024-10-09 12:45 | Outpatient (CLI) | payer OTHER, SELFPAY ==
--- NOTE | ~2024-10-09 | MMUS_ITS ---
EXAMINATION: US breast LT limited, MM diagnostic linh LT w maria elena HISTORY: Follow-up left breast mass following recent aspiration TECHNIQUE: Additional 3-D tomosynthesis images of the left breast were performed and synthetic 2-D im ages were generated. CAD analysis was submitted and interpreted. High resolution Limited left breast ultrasound was performed. COMPARISON: Comparison to multiple prior studies sequentially, with oldest reviewed study dated 01/2021. BREAST PARENCHYMAL COMPOSITION: Not dense: There are scattered areas of fibroglandular density. FINDINGS: MAMMOGRAPHIC FINDINGS: Subareolar asymmetry of the left breast is not significantly changed compared with prior examinations allowing for differences of technique. There is a tissue marker from previous benign left breast bio psy in the upper outer quadrant, posterior third. ULTRASOUND: Limited left breast ultrasound: In the 12:00 position of the left breast in the subareolar location t here is an oval hypoechoic mass which is changed morphology compared with prior examination with hypo echoic elements. This mass measures 7 x 4 x 4 mm without posterior features or internal vascularity. The mass measured 3 mm on prior examination. IMPRESSION: 1. Enlarging left subareolar mass with altered morphology compared with 03/12/2024. 2. Ultrasound-guided left breast biopsy recommended. BI-RADS category 4, suspicious findings. Reviewed, dictated and finalized at location A. IMPRESSION: 1. Enlarging left subareolar mass with altered morphology compared with 03/12/20 24. 2. Ultrasound-guided left breast biopsy recommended. BI-RADS category 4, suspicious findings.
--- OUTSIDE RECORDS SUMMARY | 2024-10-09 14:12 | XMS_ITS | Referral Summary ---
Author Organization [facility] Address [address] [place] [address] Care Team Providers Care Velvet Cutter Name Role Phone Seth Gann NP Primary Care Provider Allergies Active Allergy Reactions Criticality Noted Date Comments Amoxicillin Other (See comments) Low 01/01/2024 N/a Nitrofurantoin Swelling Medium 09/01/2021 Morphine Other (See comments) Low 01/03/2024 N/A Penicillins Other (See comments) Low 09/01/2021 Red line down neck Phenazopyridine Other (See comments) Low 01/03/2024 N/a Medications Prolia 60 mg/mL syringe 4 Active levothyroxine (SYNTHROID) 75 mcg tablet TAKE 1 TABLET BY MOUTH DAILY AT 6.30 AM 4 Active alendronate (FOSAMAX) 35 mg tablet Take 1 tablet every week by oral route. Active benzonatate (TESSALON) 200 mg capsuleIndicatio ns:Lower respiratory infection (e.g., bronchitis, pneumonia, pneumonitis, pulmonitis) Take 1 capsule (200 mg total) by mouth 3 (three) times a day as needed for cough 30 capsule 5 Active albuterol HFA (PROVENTIL HFA,VENTOLIN HFA,PROAIR HFA) 90 mcg/actuation inhalerIndicatio ns:Lower respiratory infection (e.g., bronchitis, pneumonia, pneumonitis, pulmonitis) Inhale 2 puffs every 6 (six) hours as needed for wheezing or shortness of breath 1 each 5 Active Active Problems No known active problems Social History Tobacco Use Types Packs/Day Years Used Date Smoking Tobacco: Never Assessed Comments Unknown Sex and Gender Information Value Date Recorded Sex Assigned at Not on file Legal 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 Gender Identity Not on file Sexual Orientation Not on file Last Filed Vital Signs Vital Sign Reading Time Taken Comments Blood Pressure 138/86 07/05/2024 12:25 PM 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 Pulse 82 07/05/2024 12:25 PM 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 Temperature 36.8 C (98.3 F) 07/05/2024 12:25 PM 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 Respiratory Rate 20 07/05/2024 12:2 5 PM 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 Oxygen Saturation 97% 07/05/2024 12: 25 PM 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 Inhaled Oxygen Concentration - - Weight 50.3 kg (110 lb 12.8 oz) 025 12:25 PM 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 Height 152.4 cm (5') 01/01/2024 12:29 PM CDT Body Mass Index 21.64 01/01/2024 12:29 PM CDT Plan of Treatment Not on file Insurance [facility] H[facility]PPO Address: [facility] [address] [place] [address] [employer] OPEN ACCESS Care Teams Velvet Cutter Relationship Specialty Start Date End Date Seth Gann NP [address] [place] [address] PCP - General Nurse Practitioner 01/01/24
--- OUTSIDE RECORDS SUMMARY | 2024-10-09 14:12 | XMS_ITS | Data Portability ---
Author Organization [facility] [place] Address [address] [place] [address] [place] [address] Care Team Providers Care Union Steward Name Role Phone [facility] Urologist Assessment Encounter Date Assessment Date Assessment LastModified by Organization Details LastModified Time 03/18/2020 03/18/2020 Annual gynecological exam performed. Patient will come back in a year unless there are new symptoms. [email or web address] Not available 03/18/2020 12:40:16 08/17/2020 08/17/2020 Additional precautionary measures were taken to minimize potential exposure to the Covid-19 virus during this patient s visit, including available hand residential manager upon arrive, temperature check and being asked a series of screening questions. All staff wore face coverings during this encounter, as well as provided additional cleaning and sanitizing of all surfaces, including countertops, pens, chairs, door handles, light switches, etc, prior to and following the patient s visit. Time spent in visit is a total of 36 mins with at least 50% of visit consisting of counseling and review of plan of care. [email or web address] Not available 08/25/2020 09:27:52 Plan of Treatment Reminders Order Date Submit Date Provider Last Modified By Organization Details Last Modified Time Details Appointments None recorded. Lab urinalysis, dipstick 2020 021 [email or web address] [place], [address], [place], [address], 15:46:48 Referral None recorded. Procedures None recorded. Surgeries None recorded. Imaging None recorded. Medication Orders risedronate 150 mg tablet 2020 021 [email or web address] [facility]/Pharmacy #[id number], [address], [place], [address], 1 12:06:02 Macrobid 100 mg capsule 2019 020 [email or web address] [facility]/Pharmacy #[id number], [address], [place], [address], 1 14:49:21 Pyridium 100 mg tablet 2019 020 [email or web address] [facility]/Pharmacy #[id number], [address], [place], [address], 14:49:23 Patient TargetsNo targets recorded. Patient InstructionsNo instructions recorded. Reason for Referral None Reported. Results Created Date Observation Date Name Description Value Unit Range Abnormal Flag Note LastModifiedBy Organization Detail LastModifiedTime 03/18/20 20 03/20/2020 pap, LB Pap test thin prep Negati ve for Intrae pithel ial Lesion or Malign marcelina normal ACCES DARLENE #: [id number] Sour e: Cervi gurpreet/E ndoce rvica l LMP: 11/05 Date Taken : 03/18 Speci men Type: ThinP rep Vial Date Repor neli: 2019 Clini gurpreet Data: Cytot ech: Chioma Escalante y, CT( CP) Date Repor neli: 2019 Speci men Adequ acy: Satis facto ry for evalu ation No endoc ervic al/tr ansfo rmati on zone compo nent prese nt Gener al Categ oriza tion: NEGAT MESHA FOR INTRA EPITH LEX Palacio OR TARIQ Zavala N A A S S A Y S R E P O R T TEST NAME RESUL TS ----- ---- ----- -- HPV High Risk Sam palacio (TMA) ThinP rep Vial The human papil lomav irus (HPV) High Risk Sam palacio is an FDA-a pprov ed in-vi tro ampli fied nucle ic acid test for the quali tativ e detec tion of E6/E7 viral mRNA. Resul heather valdes d be corre lated with patie nt prese ntati on, histo ry, cervi gurpreet cytol ogy and other clini gurpreet and labor atory findi ngs. See https ://Taecanet/s ites/ defau lt/fi 018-0 - 85602 _002_ .pd f for furth er infor matio n. Test perfo rmed by [facility], d/b/a ChandrakantG roup, [address] [facility], [place] [address] , Michael Gama ra, , Labor atory Direc tor. HPV High Risk *HPV NOT DETEC NELI (TYPE S 16, 18, 31, 33, 35, 39, 45, 51, 52, 56, 58, 59, 66, 68) *HPV: The human papil lomav irus (HPV) High Risk Sam palacio is an FDA-a pprov ed in-vi tro ampli fied nucle ic acid test for the quali tativ e detec tion of E6/E7 viral mRNA. Resul heather zavala be corre lated with patie nt prese ntati on, histo ry, cervi gurpreet cytol ogy and other clini gurpreet and labor atory findi ngs. See https ://Taecanet/s ites/ defau lt/fi -0 - 47719 _002_ 01.pd f for furth er infor matio n. Test perfo rmed by [facility], d/b/a Morelia carter, [address] [facility], [place] [address] , Michael Gama ra, , Labor atory Direc tor. End of Repor t Techn ical servi ryan provi ded by [employer] i[facility] logis [facility], d/b/a Morelia carter, [address] [place] [address] Catracho Diez MD, Labor atorGreat Parents Academy Dire tor. Case revie wed and diagn osis rende red at [facility] Patho logis , [facility], d/b/a PathRuben carter, [address] [facility] [address] [place] [address] Catracho Diez MD, Labor atory Dire tor. CONFI DENTI AL Not Available [facility]) [address] [place] [address] [address], [place], [address], 03/20/2020 20:06:05 03/18/20 20 03/20/2020 HPV DNA, high- risk HPV high risk NOT DETECT ED normal Not Available [facility] ([facility]) [address] [place] [address] [address], [place], [address], 03/20/2020 20:06:05 04/27/20 20 04/28/2020 lipid panel , serum cholesterol 272 mg/dL <200 high Not Available [facility] ([facility]) [address] [place] [address] [address], [place], [address], 04/28/2020 11:16:59 04/27/20 20 04/28/2020 lipid panel , serum triglyceride s 99 mg/dL <150 Not Available [facility] ([facility]) [address] [place] [address] [address], [place], [address], 04/28/2020 11:16:59 04/27/2004/28/2020 lipid panel , serum HDL cholesterol 128 mg/dL >39 Not Available [facility] ([facility]) [address] [place] [address] [address], [place], [address], 04/28/2020 11:16:59 04/27/20 20 04/28/2020 lipid panel , serum cholesterol / HDL ratio 2.13 ratio 0.00-4 .44 Not Available [facility] ([facility]) [address] [place] [address] [address], [place], [address], 04/28/2020 11:16:59 04/27/2004/28/2020 lipid panel , serum non-HDL cholesterol 144 mg/dL <130 high Not Available [facility] ([facility]) [address] [facility] [address], [place], [address], 04/28/2020 11:16:59 04/27/2004/28/2020 lipid panel , serum LDL cholesterol (calculation ) 124 mg/dL <130 LDL Rachel stero l Level s Less than 100 mg/dL Optim al 100 to 129 mg/dL Near Optim al/ Above Optim al 130 to 159 mg/dL Borde rline High 160 to 189 mg/dL High 190 mg/dL and above Very High * Categ oridrew as alexandra sarmiento d by the 2003 ATPII I guide lines Not Available [facility] ([facility]) [address] [facility] [address], [place], [address], 04/28/2020 11:16:59 04/27/2004/28/2020 lipid panel , serum LDL/HDL ratio 1.0 ratio <3.3 ___ LDL Rachel stero l Patie nt Histo ry ___ Test Date: 02/27 LDL Resul ts: 86 Units : mg/dL % Vieira e: - ----- ----- ----- ----- ----- ----- ----- ----- ----- ----- ----- ----- ----- ----- --- Test Date: 03/21 LDL Resul ts: 115 Units : mg/dL % Vieira e: +33% ----- ----- ----- ----- ----- ----- ----- ----- ----- ----- ----- ----- ----- ----- --- Test Date: 04/27 LDL Resul ts: 124 Units : mg/dL % Vieira e: +7% ___ Note: Ameri can Heart Assoc iatio n recom mends using total rachel stero l and HDL numbe rs rathe r than ratio s for patie nt class ifica tion. New guide lines from AHA/A CC recom mend again st using speci fic LDL targe ts for patie nt manag ement . Rathe r a perce ntage decre ase is the jean marie ed patie nt manag ement algor ithm, betwe en 30% and 50% reduc tion. If you would like to have your patie nts Cardi ovasc ular Risk Asses sment class ifica tion (per 2013 AHA/A CC guide lines ) 10-ye ar ASCVD score , nicholas e order the ASCVD Advan mynor Lipid Jackie youngblood (LIPC VD). Not Available [facility] ([facility]) [address] [facility] [address], [place], [address], 04/28/2020 11:16:59 04/27/20 20 04/28/2020 CBC WBC 7.1 K/uL 3.8-11 .5 Not Available [facility] ([facility]) [address], [place], [address], 04/28/2020 11:17:00 04/27/2004/28/2020 CBC red blood cell count (RBC) 3.83 M/mm3 3.60-5 .30 Not Available [facility] ([facility]) [address] [place] [address] [address], [place], [address], 04/28/2020 11:17:00 04/27/2004/28/2020 CBC hemoglobin (HGB) 12.9 gm/dL 11.5-1 5.5 Not Available [facility] ([facility]) [address] [place] [address] [address], [place], [address], 04/28/2020 11:17:00 04/27/2004/28/2020 CBC hematocrit (HCT) 37.1 % 35.2-4 6.4 Not Available [facility] ([facility]) [address] [place] [address] [address], [place], [address], 04/28/2020 11:17:00 04/27/2004/28/2020 CBC MCV 96.9 fL 79.0-9 9.0 Not Available [facility] ([facility]) [address] [place] [address] [address], [place], [address], 04/28/2020 11:17:00 04/27/2004/28/2020 CBC MCH 33.7 pg 26.9-3 5.0 Not Available [facility] ([facility]) [address] [place] [address] [address], [place], [address], 04/28/2020 11:17:00 04/27/2004/28/2020 CBC MCHC 34.8 g/dL 30.4-3 4.8 Not Available [facility] ([facility]) [address] [place] [address] [address], [place], [address], 04/28/2020 11:17:00 04/27/2004/28/2020 CBC RDW 41.6 fL 38.6-5 3.8 Not Available [facility] ([facility]) [address] [place] [address] [address], [place], [address], 04/28/2020 11:17:00 04/27/2004/28/2020 CBC platelet count 275 K/cum m 137-39 7 Not Available [facility] ([facility]) [address] [place] [address] [address], [place], [address], 04/28/2020 11:17:00 04/27/2004/28/2020 CMP, serum or plasm a sodium 142 mEq/L 135-14 5 Not Available [facility] ([facility]) [address] [place] [address] [address], [place], [address], 04/28/2020 11:17:01 04/27/2004/28/2020 CMP, serum or plasm a potassium 5.8 mEq/L 3.5-5. 3 high Not Available [facility] ([facility]) [address] [place] [address] [address], [place], [address], 04/28/2020 11:17:01 04/27/2004/28/2020 CMP, serum or plasm a chloride 105 mEq/L 97-108 Not Available [facility] ([facility]) [address] [place] [address] [address], [place], [address], 04/28/2020 11:17:01 04/27/2004/28/2020 CMP, serum or plasm a CO2 26 mEq/L 22-32 Not Available [facility] ([facility]) [address] [place] [address] [address], [place], [address], 04/28/2020 11:17:01 04/27/20 20 04/28/2020 CMP, serum or plasm a glucose 86 mg/dL 65-99 Not Available [facility] ([facility]) [address] [place] [address] [address], [place], [address], 04/28/2020 11:17:01 04/27/20 20 04/28/2020 CMP, serum or plasm a BUN 14 mg/dL 6-20 Not Available [facility] ([facility]) [address] [place] [address] [address], [place], [address], 04/28/2020 11:17:01 04/27/2004/28/2020 CMP, serum or plasm a creatinine 0.65 mg/dL 0.50-1 .00 Not Available [facility] ([facility]) [address] [place] [address] [address], [place], [address], 04/28/2020 11:17:01 04/27/2004/28/2020 CMP, serum or plasm a calcium 9.8 mg/dL 8.6-10 .4 Not Available [facility] ([facility]) [address] [place] [address] [address], [place], [address], 04/28/2020 11:17:01 04/27/2004/28/2020 CMP, serum or plasm a protein 6.9 g/dL 6.0-8. 3 Not Available [facility] ([facility]) [address] [place] [address] [address], [place], [address], 04/28/2020 11:17:01 04/27/2004/28/2020 CMP, serum or plasm a albumin 5.0 g/dL 3.5-5. 3 Not Available [facility] ([facility]) [address] [place] [address] [address], [place], [address], 04/28/2020 11:17:01 04/27/202020 CMP, serum or plasm a alkaline phosphatase 85 IU/L 35-121 Not Available [facility] ([facility]) [address] [place] [address] [address], [place], [address], 04/28/2020 11:17:01 04/27/2004/28/2020 CMP, serum or plasm a ALT (SGPT) 29 IU/L <5-47 Not Available [facility] ([facility]) [address] [place] [address] Dr [address], [place], [address], 04/28/2020 11:17:01 04/27/2004/28/2020 CMP, serum or plasm a AST (SGOT) 52 IU/L <5-40 high Not Available [facility] ([facility]) [address] [place] [address] [address], [place], [address], 04/28/2020 11:17:01 04/27/2004/28/2020 CMP, serum or plasm a bilirubin, total 0.5 mg/dL <0.2-1 .2 Not Available [facility] ([facility]) [address] [place] [address] [address], [place], [address], 04/28/2020 11:17:01 04/27/2004/28/2020 CMP, serum or plasm a A/G ratio 2.6 mg/dL 1.1-2. 5 high Not Available [facility] ([facility]) [address] [place] [address] [address], [place], [address], 04/28/2020 11:17:01 04/27/2004/28/2020 GFR, estim ated (eGFR ), serum estimated GFR (black) 116 mL/mi n/1.7 3m2 >59 Not Available [facility]) [address] [place] [address] [address], [place], [address], 04/28/2020 11:17:01 04/27/20 20 04/28/2020 GFR, estim ated (eGFR ), serum estimated GFR (other) 100 mL/mi n/1.7 3m2 >59 GFR Categ ories in Chron ic Kidne y Disea se (CKD) GFR Categ ory GFR (mL/m in/1. 73 sq. meter s) Inter preta tion G1 90 or great er Gila l or high* G2 60-89 Mild decre ase* G3a 45-59 Mild to moder ate decre ase G3b 30-44 Moder ate to sever e decre ase G4 15-29 Sever e decre ase G5 14 or less Kidne y failu re *In the absen ce of felix hubbardag e, neith er GFR categ ory G1 or G2 fulfi ll the crite bismark for CKD (Broderick ey Int Suppl 2013; 3.1-1 50) The CKD-E PI calcu latio n is inten ded for use in patie nts 18 years of age and older . Decre ased calcu latio n accur acy may be seen in patie nts takin g medic ation s that affec t renal excre tion, or in those patie nts with extre mes in muscl e mass or diet. Not Available [facility] ([facility]) [facility] [address], [place], [address], 04/28/2020 11:17:01 04/27/20 20 04/28/2020 hemol ysis inter feren ce hemolysis interference SEE COMMEN T Speci men is sligh tly hemol yzed. Resul ts for Potas sium may be affec neli. Resul ts shoul d be inter prete d in conju nctio n with clini gurpreet prese ntati on and histo ry. Not Available [facility] ([facility]) [facility] [address], [place], [address], 04/28/2020 11:17:02 04/27/20 20 04/28/2020 HbA1c (hemo globi n A1c), blood hemoglobin A1C 4.9 % <5.7 The follo wing HbA1c range s recom torsten d by the Adarsh paulino Diabe porsche Assoc iatio n (ADA) may be used as an aid in the diagn osis of diabe porsche germaine [place]. HA1c Sugge stesally Diagn osis >=6.5 % Diabe tic 5.7% - 6.4% Pre-D iabet ic <5.7% Non-D iabet ic Not Available [facility] ([facility]) [address] [place] [address] [address], [place], [address], 04/28/2020 11:17:02 04/27/2004/28/2020 estim ated avera ge gluco se estimated average glucose 94 mg/dL [place] ge Gluco se is calcu lated using the equat ion AG = (28.7 x HgbA1 c) - 46.7 based on the guide lines estab lishe d by the ADA. Not Available [facility] ([facility]) [address] [place] [address] [address], [place], [address], 04/28/2020 11:17:03 04/27/2004/28/2020 T4, free, serum thyroxine free (free T4) 1.02 NG/dL 0.86-1 .76 Not Available [facility] ([facility]) [address] [place] [address] [address], [place], [address], 04/28/2020 11:17:03 04/27/2004/28/2020 TSH, serum or plasm a TSH reflex to FT4 6.16 mU/L 0.27-4 .20 high Not Available [facility] ([employer] [facility]) [address] [place] [address] [address], [place], [address], 04/28/2020 11:17:04 04/27/2004/28/2020 vitam in D, 25-hy droxy , total , serum vitamin D 25-hydroxy 32.8 NG/mL 30.0-1 00.0 Inter preta tion of Vitam in D 25 OH: < 20 ng/mL - Defic iency 20 - 29 ng/mL - Insuf ficie ncy 30 - 100 ng/mL - Suffi cienc y > 100 ng/mL - Super -ther apeut ic- toxic ity may occur above this level . Clini gurpreet corre latio n requi red. Not Available [facility] ([facility]) [address] [place] [address] [address], [place], [address], 04/28/2020 11:17:04 07/09/1907/10/2020 CBC w/ auto diff WBC 6.3 K/uL 3.8-11 .5 Not Available [facility] ([facility]) [address] [place] [address] [address], [place], [address], 07/10/2020 08:33:35 07/09/19 21 07/10/2020 CBC w/ auto diff red blood cell count (RBC) 3.99 M/mm3 3.60-5 .30 Not Available [facility] ([facility]) [address] [place] [address] [address], [place], [address], 07/10/2020 08:33:35 07/09/19 21 07/10/2020 CBC w/ auto diff hemoglobin (HGB) 13.1 gm/dL 11.5-1 5.5 Not Available [facility] ([facility]) [address] [place] [address] [address], [place], [address], 07/10/2020 08:33:35 07/09/1907/10/2020 CBC w/ auto diff hematocrit (HCT) 38.3 % 35.2-4 6.4 Not Available [facility] ([facility]) [address] [place] [address] [address], [place], [address], 07/10/2020 08:33:35 07/09/19 21 07/10/2020 CBC w/ auto diff MCV 96.0 fL 79.0-9 9.0 Not Available [facility] ([facility]) [address] [place] [address] [address], [place], [address], 07/10/2020 08:33:35 07/09/19 21 07/10/2020 CBC w/ auto diff MCH 32.8 pg 26.9-3 5.0 Not Available [facility] ([facility]) [address] [place] [address] [address], [place], [address], 07/10/2020 08:33:35 07/09/19 21 07/10/2020 CBC w/ auto diff MCHC 34.2 g/dL 30.4-3 4.8 Not Available [facility] ([facility]) [address] [place] [address] [address], [place], [address], 07/10/2020 08:33:35 07/09/19 21 07/10/2020 CBC w/ auto diff RDW 40.2 fL 38.6-5 3.8 Not Available [facility]) [address] [place] [address] [address], [place], [address], 07/10/2020 08:33:35 07/09/19 21 07/10/2020 CBC w/ auto diff platelet count 321 K/cum m 137-39 7 Not Available [facility] ([facility]) [address] [place] [address] [address], [place], [address], 07/10/2020 08:33:35 07/09/19 21 07/10/2020 CBC w/ auto diff neutrophils automated 39.1 % 41.0-7 7.0 low Not Available [facility]) [address] [place] [address] [address], [place], [address], 07/10/2020 08:33:35 07/09/19 21 07/10/2020 CBC w/ auto diff lymphocytes automated 43.5 % 14.0-4 8.0 Not Available [facility]) [address] [place] [address] Dr [address], [place], [address], 07/10/2020 08:33:35 07/09/19 21 07/10/2020 CBC w/ auto diff monocytes automated 10.5 % 4.0-13 .0 Not Available [facility]) [address] [place] [address] Dr [address], [place], [address], 07/10/2020 08:33:35 07/09/19 21 07/10/2020 CBC w/ auto diff eosinophils automated 5.6 % 0.0-8. 0 Not Available [facility]) [address] [place] [address] Dr [address], [place], [address], 07/10/2020 08:33:35 07/09/19 21 07/10/2020 CBC w/ auto diff basophils automated 1.0 % 0.0-1. 5 Not Available [facility]) [address] [place] [address] Dr [address], [place], [address], 07/10/2020 08:33:35 07/09/19 21 07/10/2020 CBC w/ auto diff immature granulocyte automated 0.3 % 0.0-1. 0 Not Available [facility]) [address] [place] [address] [address], [place], [address], 07/10/2020 08:33:35 07/09/19 21 07/10/2020 CMP, serum or plasm a sodium 144 mEq/L 135-14 5 Not Available [facility]) [address] [place] [address] Dr [address], [place], [address], 07/10/2020 08:33:36 07/09/19 21 07/10/2020 CMP, serum or plasm a potassium 5.5 mEq/L 3.5-5. 3 high Not Available [facility] ([facility]) [address] [place] [address] Dr Trent, [place], [address], 07/10/2020 08:33:36 07/09/19 21 07/10/2020 CMP, serum or plasm a chloride 105 mEq/L 97-108 Not Available [facility] ([facility]) [address] [place] [address] Dr Trent, [place], [address], 07/10/2020 08:33:36 07/09/19 21 07/10/2020 CMP, serum or plasm a CO2 28 mEq/L 22-32 Not Available [facility] ([facility]) [address] [place] [address] Dr Trent, [place], [address], 07/10/2020 08:33:36 07/09/19 21 07/10/2020 CMP, serum or plasm a glucose 69 mg/dL 65-99 Not Available [facility] ([facility]) [address] [place] [address] Dr Trent, [place], [address], 07/10/2020 08:33:36 07/09/19 21 07/10/2020 CMP, serum or plasm a BUN 13 mg/dL 6-20 Not Available [facility] ([facility]) [address] [place] [address] Dr Trent, [place], [address], 07/10/2020 08:33:36 07/09/1907/10/2020 CMP, serum or plasm a creatinine 0.60 mg/dL 0.50-1 .00 Not Available [facility] ([facility]) [address] [place] [address] Dr Trent, [place], [address], 07/10/2020 08:33:36 07/09/19 21 07/10/2020 CMP, serum or plasm a calcium 9.9 mg/dL 8.6-10 .4 Not Available [facility] ([facility]) [address] [place] [address] Dr Trent, [place], [address], 07/10/2020 08:33:36 07/09/19 21 07/10/2020 CMP, serum or plasm a protein 6.8 g/dL 6.0-8. 3 Not Available [facility] ([facility]) [address] [place] [address] Dr Trent, [place], [address], 07/10/2020 08:33:36 07/09/1907/10/2020 CMP, serum or plasm a albumin 4.7 g/dL 3.5-5. 3 Not Available [facility] ([facility]) [address] [place] [address] Dr Trent, [place], [address], 07/10/2020 08:33:36 07/09/19 21 07/10/2020 CMP, serum or plasm a alkaline phosphatase 73 IU/L 35-121 Not Available [facility] ([facility]) [address] [place] [address] Dr Trent, [place], [address], 07/10/2020 08:33:36 07/09/19 21 07/10/2020 CMP, serum or plasm a ALT (SGPT) 19 IU/L <5-47 Not Available [facility] ([facility]) [address] [place] [address] Dr Trent, [place], [address], 07/10/2020 08:33:36 07/09/19 21 07/10/2020 CMP, serum or plasm a AST (SGOT) 22 IU/L <5-40 Not Available [facility] ([facility]) [address] [place] [address] Dr Trent, [place], [address], 07/10/2020 08:33:36 07/09/19 21 07/10/2020 CMP, serum or plasm a bilirubin, total 0.4 mg/dL <0.2-1 .2 Not Available [facility] ([facility]) [address] [place] [address] Dr Trent, [place], [address], 07/10/2020 08:33:36 07/09/1907/10/2020 CMP, serum or plasm a A/G ratio 2.2 mg/dL 1.1-2. 5 Not Available [facility] [address] [place] [address] Dr Trent, [place], [address], 07/10/2020 08:33:36 07/09/1907/10/2020 GFR, estim ated (eGFR ), serum estimated GFR (black) 119 mL/mi n/1.7 3m2 >59 Not Available [facility]) [address] [place] [address] Dr Trent, [place], [address], 07/10/2020 08:33:36 07/09/1907/10/2020 GFR, estim ated (eGFR ), serum estimated GFR (other) 103 mL/mi n/1.7 3m2 >59 GFR Categ ories in Chron ic Kidne y Disea se (CKD) GFR Categ ory GFR (mL/m in/1. 73 sq. meter s) Inter preta tion G1 90 or great er Gila l or high* G2 60-89 Mild decre ase* G3a 45-59 Mild to moder ate decre ase G3b 30-44 Moder ate to sever e decre ase G4 15-29 Sever e decre ase G5 14 or less Felix shrestha re *In the absen ce of victor manuel gracia er GFR categ ory G1 or G2 fulfi ll the crite [place] for CKD (Broderick nails Int Suppl 2013; 3.1-1 50) The CKD-E PI calcu latio n is inten ded for use in patie nts 18 years of age and older . Decre ased calcu latio n accur acy may be seen in patie nts takin g medic ation s that affec t renal excre tion, or in those patie nts with extre mes in muscl e mass or diet. Not Available [facility] ([facility]) [address] [place] [address] Dr Trent, [place], [address], 07/10/2020 08:33:36 07/09/1907/10/2020 phosp horus , serum or plasm a phosphorus 4.3 mg/dL 2.5-4. 5 Not Available [facility] [address] [place] [address] Dr Trent, [place], [address], 07/10/2020 08:33:36 07/09/1907/10/2020 TSH, serum or plasm a TSH reflex to FT4 0.37 mU/L 0.27-4 .20 Not Available [facility] ([facility]) [address] [place] [address] Dr Trent, [place], [address], 07/10/2020 08:33:37 07/09/1907/10/2020 vitam in D, 25-hy droxy , total , serum vitamin D 25-hydroxy 37.0 NG/mL 30.0-1 00.0 Inter preta tion of Vitam in D 25 OH: < 20 ng/mL - Defic iency 20 - 29 ng/mL - Insuf ficie ncy 30 - 100 ng/mL - Suffi cienc y > 100 ng/mL - Super -ther apeut ic- toxic ity may occur above this level . Clini gurpreet corre latio n requi red. Not Available [facility] [address] [place] [address] Dr Trent, [place], [address], 07/10/2020 08:33:37 01/16/2001/15/2021 URINA LYSIS , WITH MICRO SCOPI C color, urine Yellow colorl ess, light yellow , yellow , dark yellow , straw Not Available [facility] (Lab) [address], [place], [address], 01/16/2021 22:36:34 01/16/20 21 01/15/2021 URINA LYSIS , WITH MICRO SCOPI C clarity, urine Slight ly Cloudy abnormal Not Available [facility] (Lab) [address] [facility], [place], [address], 01/16/2021 22:36:34 01/16/20 21 01/15/2021 URINA LYSIS , WITH MICRO SCOPI C glucose, urine Negati ve mg/dL negati ve Not Available [facility] (Lab) [address] [facility], [place], [address], 01/16/2021 22:36:34 01/16/20 21 01/15/2021 URINA LYSIS , WITH MICRO SCOPI C bilirubin, urine Negati ve mg/dL negati ve Not Available [facility] (Lab) [address] [facility], [place], [address], 01/16/2021 22:36:34 01/16/20 21 01/15/2021 URINA LYSIS , WITH MICRO SCOPI C ketones, urine Negati ve mg/dL negati ve Not Available [facility] (Lab) [address] [facility], [place], [address], 01/16/2021 22:36:34 01/16/20 21 01/15/2021 URINA LYSIS , WITH MICRO SCOPI C pH, urine 6.0 . 5.0-9. 0 Not Available [facility] (Lab) [address] [facility], [place], [address], 01/16/2021 22:36:34 01/16/20 21 01/15/2021 URINA LYSIS , WITH MICRO SCOPI C specific gravity, urine 1.012 . 1.001- 1.035 Not Available [facility] (Lab) [address] [facility], [place], [address], 01/16/2021 22:36:34 01/16/20 21 01/15/2021 URINA LYSIS , WITH MICRO SCOPI C blood, urine Small negati ve abnormal Not Available [facility] (Lab) [address] [facility], [place], [address], 01/16/2021 22:36:34 01/16/20 21 01/15/2021 URINA LYSIS , WITH MICRO SCOPI C protein, urine Negati ve mg/dL negati ve Not Available [facility] (Lab) [address] [facility], [place], [address], 01/16/2021 22:36:34 01/16/20 21 01/15/2021 URINA LYSIS , WITH MICRO SCOPI C urobilinogen , urine <2.0 mg/dL <2.0 Not Available [facility] (Lab) [address] [facility], [place], [address], 01/16/2021 22:36:34 01/16/20 21 01/15/2021 URINA LYSIS , WITH MICRO SCOPI C nitrite, urine Negati ve negati ve Not Available [facility] (Lab) [address] [facility], [place], [address], 01/16/2021 22:36:34 01/16/20 21 01/15/2021 URINA LYSIS , WITH MICRO SCOPI C leukocyte esterase, urine Negati ve negati ve Not Available [facility] (Lab) [address] [facility], [place], [address], 01/16/2021 22:36:34 01/16/20 21 01/15/2021 URINA LYSIS , WITH MICRO SCOPI C WBC, urine 0-5 /hpf none, 0-5 Not Available [facility] (Lab) [address] [facility], [place], [address], 01/16/2021 22:36:34 01/16/20 21 01/15/2021 URINA LYSIS , WITH MICRO SCOPI C RBC, urine 0-2 /hpf none, 0-2 Not Available [facility] (Lab) [address] [facility], [place], [address], 01/16/2021 22:36:34 01/16/20 21 01/15/2021 URINA LYSIS , WITH MICRO SCOPI C bacteria, urine None /hpf none Not Available [facility] (Lab) [address] [facility], [place], [address], 01/16/2021 22:36:34 01/16/20 21 01/15/2021 URINA LYSIS , WITH MICRO SCOPI C squamous epithelial cells, urine Modera te /hpf none abnormal Not Available [facility] (Lab) [address] [facility], [place], [address], 01/16/2021 22:36:34 01/16/20 21 01/15/2021 CULTU RE: URINE result report SEE RESULT S BELOW Test: Cultu re: Urine Speci men Sourc e: Urine Voide d Speci men Type: Urine Speci men Date: 2020 2:43 PM Resul t Date: 2020 9:32 PM Resul t Statu s: Final resul t Abnor mal: No Resul ting Lab: [facility] [address] [facility] [address] Tel: CULTU RE ----- ----- ----- --- No growt h in 1 day (dete ction level of 10,00 0 colon ies / ml.) Not Available [facility] (Lab) [address] [facility], [place], [address], 01/16/2021 22:36:35 01/16/20 21 01/15/2021 urina lysis , dipst ick Leukocytes neg Not Available [facility] [address], [place], [address], 01/15/2021 14:41:50 01/16/20 21 01/15/2021 urina lysis , dipst ick Nitrite neg Not Available [facility], [place], [address], 01/15/2021 14:41:50 01/16/20 21 01/15/2021 urina lysis , dipst ick Urobilinogen neg Not Available [facility] deng [address], [place], [address], 01/15/2021 14:41:50 01/16/20 21 01/15/2021 urina lysis , dipst ick Protein neg Not Available [facility] [address], [place], [address], 01/15/2021 14:41:50 01/16/20 21 01/15/2021 urina lysis , dipst ick pH 5 Not Available [facility] [address], [place], [address], 01/15/2021 14:41:50 01/16/20 21 01/15/2021 urina lysis , dipst ick Blood trace Not Available [facility] [address], [place], [address], 01/15/2021 14:41:50 01/16/20 21 01/15/2021 urina lysis , dipst ick Specific Bode neg Not Available [facility] elidia [address], [place], [address], 01/15/2021 14:41:50 01/16/20 21 01/15/2021 urina lysis , dipst ick Ketone neg Not Available [facility] [address], [place], [address], 01/15/2021 14:41:50 01/16/20 21 01/15/2021 urina lysis , dipst ick Bilirubin neg Not Available [facility] [address], [place], [address], 01/15/2021 14:41:50 01/16/20 21 01/15/2021 urina lysis , dipst ick Glucose neg Not Available [facility] [address], [place], [address], 01/15/2021 14:41:50 01/16/20 21 01/15/2021 urina lysis , dipst ick Appearance clear Not Available [facility] rylie [address], [place], [address], 01/15/2021 14:41:50 01/16/20 21 01/15/2021 urina lysis , dipst ick Color straw Not Available [facility] [address], [place], [address], 01/15/2021 14:41:50 03/18/20 20 02/25/2020 CT, abdom en, w/o contr ast No observ ation record ed. [facility] [address], [place], [address], 03/23/2020 13:24:50 06/05/20 20 06/05/2020 MAMMO , scree lexis, bilat eral No observ ation record ed. [facility] [address], [place], [address], 06/16/2020 13:44:27 06/08/20 20 06/05/2020 MAMMO , scree lexis, bilat eral No observ ation record ed. [facility] [address], [place], [address], 06/16/2020 13:26:52 06/30/19 21 DEXA, axial skele ton + verte bral fract ure asses sment No observ ation record ed. [facility] [address], [place], [address], 07/07/2020 17:03:15 07/27/19 21 07/27/2020 MAMMO , diagn ostic , bilat eral No observ ation record ed. les [facility] [address], [place], [address], 07/31/2020 16:35:48 Result Notes None recorded. Problems Name Problem SNOMED Code Status Onset Date Resolution Date Notes Provider Name and Address Organization Details Recorded Time Pelvic and perineal pain 711281131 Active 2015 Pelvic and perineal pain;Pra ctice ID: 0001 Not Available [facility] 0 21:52:52 Dyspareu low 10466900 Active 2015 Dyspareu low;Prac charlene ID: 0001 Not Available [facility] 0 21:52:52 Cyst of ovary 21096312 Active 2015 Unspecif ied ovarian cysts;Pr actice ID: 0001 Not Available [facility] 0 21:52:52 Finding of trunk structur e 979682011 Active 2015 Generali zed intra-ab d and pelvic swelling , mass and lump;Pra ctice ID: 0001 Not Available [facility] 0 21:52:52 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 Active 2015 Oth noninfla mmatory disord of ovary, fallop and broad ligmt;Pr actice ID: 0001 Not Available [facility] 0 21:52:52 Lesion of ovary Active 2015 Other ovarian cyst, right side;Pra ctice ID: 0001 Not Available [facility] 0 21:52:52 Increase d frequenc y of urinatio n 528019195 Active 2017 Frequenc y of micturit ion;Prac charlene ID: 0001 Not Available [facility] 0 21:52:[address] Concept Active 2017 Encounte r for general adult medical exam w abnormal findings ;Practic e ID: 0001 Not Available [facility] 0 21:52:[address] Concept Active 2017 Encntr for fur machine operator exam (general ) (routine ) w/o abn findings ;Practic e ID: 0001 Not Available [facility] 0 21:52:52 Screenin g for malignan t neoplasm of rectum Active 2017 Encounte r for screenin g for malignan t neoplasm of rectum;P ractice ID: 0001 Not Available [facility] 0 21:52:52 Microsco pic hematuri a Active 2010 HEMATURI A [facility] PIC;Prac charlene ID: 0001 Not Available [facility] 0 21:52:53 Female genital organ symptoms Active 2010 Unspecif ied symptom associat ed with female genital organs;P ractice ID: 0001 Not Available [facility] 0 21:52:53 Dysfunct ional uterine bleeding Active 2010 DUB;Prac charlene ID: 0001 Not Available [facility] 0 21:52:53 Pregnanc y test negative 661725520 Active 2010 Negative Pregnanc y Test;Pra ctice ID: 0001 Not Available [facility] 0 21:52:53 Ill-defi dima intestin al infectio n Active 2011 No Show Fee;Prac charlene ID: 0001 Not Available [facility] 0 21:52:53 Right lower quadrant pain 162409963 Active 2011 Abdomina l pain, right lower quadrant ;Practic e ID: 0001 Not Available [facility] 0 21:52:53 Speciali zed medical examinat ion Active 2011 Routine gynecolo gical examinat ion;Prac charlene ID: 0001 Not Available [facility] 0 21:52:53 Screenin g for malignan t neoplasm of cervix Active 2011 Pap Smear;Pr actice ID: 0001 Not Available [facility] 0 21:52:53 Tobacco dependen ce syndrome 81351260 Active 2011 Nondepen dent tobacco use disorder ;Practic e ID: 0001 Not Available [facility] 0 21:52:54 Efrain hematuri a 384442570 Active 2011 GROSS HEMATURI A;Practi ce ID: 0001 Not Available [facility] 0 21:52:54 Postmeno pausal bleeding 57040387 Active 2011 Postmeno pausal bleeding ;Practic e ID: 0001 Not Available [facility] 0 21:52:54 Screenin g for malignan t neoplasm of rectum Completed 201103/21/2012 Screenin g for malignan t neoplasm s of the rectum;R ecorded Elsewher e: No Locat ion: [facility] S ource: 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 Hoop Flaring Machine Operator joesph: N Practi ce ID: 0001 Gregor lable Time: 11:30:00 AM Not Available [facility] 0 21:52:54 Microsco pic hematuri a 611685449 Completed 201103/21/2012 [facility] PIC HEMATURI A;Record ed Elsewher e: No Locat ion: [facility] S ource: EHR Hoop Flaring Machine Operator joesph: N Practi ce ID: 0001 Gregor lable Time: 11:30:00 AM Not Available [facility] 0 21:52:[address] Concept Active 2015 Encntr for general adult medical exam w/o abnormal findings ;Recorde d Elsewher e: No Locat ion: [facility] S ource: EHR Hoop Flaring Machine Operator joesph: N Practi ce ID: 0001 Gregor lable Time: 12:30:00 PM Not Available [facility] 0 21:52:55 Osteopor osis 44668313 Active 2017 Age-rela neli osteopor osis w/o current patholog ical fracture ;Recorde d Elsewher e: No Locat ion: [facility] S ource: EHR Hoop Flaring Machine Operator joesph: N Practi ce ID: 0001 Gregor lable Time: 04:05:27 PM Not Available [facility] 0 21:52:55 Problem Notes None recorded. Procedures Surgical History Date Name Laterality Status Provider Name and Address Organization Details Recorded Time 03/18/20 Date of Last Pap Smear completed Yeni Zaidi [facility] 08/17/2020 11:21:36 [facility] 03/18/2020 12:44:54 Removal of fallopian tube completed Yeni Zaidi [facility] 03/18/2020 12:45:08 Partial Hysterectomy completed Yeni Zaidi [facility] 03/18/2020 12:45:15 Tubal Ligation completed Yeni Zaidi [facility] 03/18/2020 12:45:19 Imaging Results Imaging Date Name Status LastModified by Organiz ation Details LastModified Time 02/25/2020 CT, abdomen, w/o contrast completed [facility] [address], [place], [address], 03/23/2020 13:24:50 06/05/2020 MAMMO, screening, bilateral completed [facility] [address], [place], [address], 06/16/2020 13:44:27 06/05/2020 MAMMO, screening, bilateral completed [facility] [address], [place], [address], 06/16/2020 13:26:52 06/30/2020 DEXA, axial skeleton + vertebral fracture assessment completed [facility] [address], [place], [address], 07/07/2020 17:03:15 07/27/2020 MAMMO, diagnostic, bilateral completed [facility] [address], [place], [address], 07/31/2020 16:35:48 Procedure Notes None recorded. Medical Equipment None Reported. Allergies Allergen ID Allergen Name Allergen Category Reaction Reaction Severity Criticality Documentation Date Start Date Code Code System Note Provider Name and Address Organization Details Recorded Time 2212 amoxicill in medicatio n Not available Not available Not available 03/18/2020 723 RxNorm Yeni jaramillo [facility] 0 12:44:05 Medications Name Sig Start Date Stop Date Status Note LastModified by Organization Details LastModified Time Pyridium 100 mg tablet Take 1 tablet 3 times a day by oral route as needed for 7 days. 2020 active Not Available Not Available Not Avai lable ciproflox acin 500 mg tablet take 1 tablet (500MG) by oral route every 12 hours active Not Available Not Available No t Available levothyro xine 25 mcg tablet active Not Available Not Available Not Available levothyro xine 75 mcg tablet TK 1 T PO D active Not Available Not Available No t Available alendrona te 35 mg tablet Take 1 tablet every week by oral route. active Not Available Not Available No t Available dicyclomi ne 20 mg tablet active Not Available Not Available Not Available raloxifen e 60 mg tablet take 1 tablet by oral route every day 12/25 completed Prescrib ed Elsewher e: Yes Loca tion: [facility] By: karissa de luna DateTime : 12/03/19 16 12:30:00 PM Not Available Not Available Not Available Vitamin D2 1,250 mcg (50,000 unit) capsule take 1 capsule by oral route every week 2017 active Prescrib ed Elsewher e: No Locat ion: [facility] By: les de luna DateTime : 03/02/20 18 03:59:19 PM Not Available Not Available Not Available Stanback Headache Powder 650 mg oral packet 12/02 completed Prescrib ed Elsewher e: Yes Loca tion: [facility] By: tessie marshall DateTime : 09/13/19 12 11:30:00 AM Not Available Not Available Not Available Bactrim DS 800 mg-160 mg tablet take 1 tablet by oral route every 12 hours 03/21 completed Prescrib ed Elsewher e: No Locat ion: [facility] By: melanie sesay DateTime : 09/19/19 12 10:38:57 AM Not Available Not Available Not Available nitrofura ntoin monohydra te/macroc rystals 100 mg capsule Take 1 capsule every 12 hours by oral route for 7 days. active Not Available Not Available No t Available calcium active Not Available Not Avail able Not Available Vitamin D active Not Available Not Mel ilable Not Available risedrona te 150 mg tablet Take 1 tablet every month by oral route for 90 days. 09/09 completed Not Available Not Available Not Available B12 active Not Available Not Availa ble Not Available ID NOW COVID-19 Test Kit DIRECTED active Not Available Not Available No t Available Vitals Date Recorded Body height Body mass index (BMI) Body weight Systolic blood pressure Diastolic blood pressure Provider Name and Address Organization Details Last Updated DateTime 08/17/2020 152.4 cm 20.7 kg/m2 69619.79 g 115 mm[Hg] 73 mm[Hg] Yeni [facility] 1 14:49:17 Date Recorded Body height Provider Name an d Address Organization Details Last Updated DateTime 01/15/2021 152.4 cm Katey Britt [facility] 01/15/2021 14:39:11 Date Recorded Body height Body mass index (BMI) Body weight Systolic blood pressure Diastolic blood pressure Provider Name and Address Organization Details Last Updated DateTime 03/18/2020 152.4 cm 19.7 kg/m2 34008.83 g 128 mm[Hg] 84 mm[Hg] Yeni [facility] 0 12:51:16 Social History None recorded. Functional Status None recorded. Mental Status None recorded. Family History Nothing Reported. Medical History No medical history recorded. Gynecological History Statement/Question Response Date of Last Pap Smear 03/18/2020 Current Control Method Hysterectom y Desired Control Method None Obstetrics History GPAL:G 0 P 0 0 0 0 Past Encounters Encounter ID Performer Location Encounter Start Date Encounter Closed Date Diagnosis/Indication Diagnosis SNOMED-CT Code Diagnosis ICD10 Code Diagnosis Note [id number] Sarah Beth [facility] [address] [address] 03/18/2020 12:37:57 03/18/2020 13:20:16 Gynecologic examination 37968010 Z00.01 Take Calcium with Vitamin D 12-1500mg daily. Do monthly self breast exams. It is advised to get annual flu shot in the fall and she could obtain at [facility] or [facility]. If you haven't received the Tdap vaccine in the last 10 years you should obtain one as well. Have mammogram yearly, bone density every 2-3 years and colonoscop y every 5-10 years depending on findings and history. Engage in daily exercise of low impact aerobic exercise 45-60 minutes 4-5 times weekly. Avoid tobacco and illicit drugs as well as using moderation with alcohol intake less than 1-2 8 oz beverages daily. This lifestyle behavior pattern will lead to less health conditions and longer life span. If BMI greater than 25 weight watchers or dietary consult advised. Questions have been answered. Patient appears to understand instructio ns, but if you have any further questions call or respond to this email Partial hyst (still has uterus & 1-ovary) Menopausal & a smoker Dexa 2019 done. Next due 2020. Colonoscop y UTD Pap/HPV updated. Mammo ordered Requested she get latest CT Scan so we could see results she disclosed today. Increased frequency of urination [id number] R35.0 Macrobid sent Pyridium sent Urine tested elsewhere & told cystitis but no one called her in anything. We discussed that there could also be a component of IC as well. Will treat based on subjective complaints but needs to consider urology if sx's persist. [id number] Sarah Beth Sierra , [facility] [address] [address] 08/17/2020 14:42:37 08/19/2020 21:57:45 Postmenopausal osteoporosis [id number] M81.0 Recommend: Osteopanel , Calcium 1200mg in divided doses, shanel D 1000 units daily and engage in weight bearing exercises such as walking, dancing, jogging, aerobics and strength training. For areas less than -2.5 treatment includes: Check osteopanel or rule out GI/Esophog eal/renal function issues. Needs to consider addition of a Bisphosphn ate once weekly or Risedronat e 5mg daily or 35mg weekly or 150mg monthly. Option to pursue bone specialist to discuss newer option in osteoporos is management also an option. She has chosen once a month treatment and r/p imaging at appropriat e intervals. F/U in 6mos to see how she is tolerating medication . If tolerating well will check in yearly. Mastodynia of bilateral breasts [id number] N64.4 Recommend seeking breast specialist for additional evaluation to ensure no other issues. She agrees. Cigarette smoker [id number] F17.210 We reviewed smoking cessation options including nicotine patches, wellbutrin (not interested in chantix); counseling . She is contemplat ing and moving towards cessation motivated by new grandbaby that is coming soon. She wants to help take care of her grandbaby and the stipulatio n is that she quits smoking so as to not expose baby to second hand smoke. [id number] Sarah Beth Sierra [facility] [address] [address] 01/15/2021 14:03:37 01/16/2021 14:26:46 Blood in urine [id number] R31.9 Health Concerns Section Related Observation LastModified by Organization Detai ls LastModified Time None Recorded Concern Status LastModified by Organization Details LastModified Time None Recorded Advance Directives Directive None Recorded Payers Encounter Date Sequence Insurance Name Policy Number Policy Carrington Covered Member ID Carrington Member ID Guarantor Name 03/18/[address] [id number] [facility] 08/17/[address] [id number] [facility] 01/15/[address] [id number] [facility] Notes Date Note Type Note Provider Name and Address Organization Details Recorded Time 03/18/2020 text/html Annual GYNReport ed bypatient.History:no gynecologic complaints Menstrual cycle:Normal menses Urinary symptoms:No hematuria; No incontinence;Increas ed urinary frequency Vulva:No genital lesion Vagina:Normal vaginal discharge Breast:No breast pain; No breast lump; No nipple discharge Sexual complaints:No sexual complaints; No pain during intercourse; Normal libido Menopausal Symptoms:No menopausal symptoms; Normal vaginal lubrication Psychological symptoms:No depression; No anxiety; No PMDD Preventive measures:Encourage self breast examination; Encourage regular exercise; Encourage no tobacco use; Encourage regular mammograms starting age 40; Needs to schedule mammogram; Up to date on colonoscopy screening Smoker Sarah Beth Sierra [facility] [address], [place], [address], [facility] 03/18/2020 13:14:13 08/17/2020 text/html Patient is here today to discuss the followin. Mammo results 2. Dexa results and recommendations 3. Smoking cessation Sarah Beth Sierra, [facility] [address], [place], [address], [place] [facility] 08/25/2020 09:28:18 OBGyn Episode Ob Episode Information Episode Created Date Number of Fetuses Patient Bloodtype Patient rh Status Prepregnancy Weight lbs Domestic Partner Domestic Partner Phone Father Name Online Facilitator Status 03/18/20 20 1 CLOSED Fetus Data First Name Last Name Admitted to NICU Weight (g) Sex Living Outcome Pediatric Complications Fetus ID Race Codes Race Delivery Type [id number] Primary Sim Calculation Initial Sim Date Initial Exam Date Initial Exam Provider Initial Ultrasound Date Last Menstrual Period Date Ultra Sound Weeks Gestation 0 Eighteen To Twenty Week Sim Update Ultra Sound Date Fundal Height At Umbil Quickening Date Ultra Sound Latest Weeks Gestation Final Sim Confirmed By Final Sim Confirmed Date Final Sim Date Ultra Sound Latest Days Gestation 0 0 Menstrual History Last Menstrual Date Menses Monthly On Bcp Conception Prior Menses Frequency Hcg Plus Date Menarche Onset Age Delivery Information Delivery Date Delivery Type Labor Anesthesia Weeks Gestation Incision Type Labor Labor Length Hrs Delivered By Post Complications Tubal Sterilization Discharge Date Comments 1 Discharge Information Feeding Method Contraceptive Method Maternal HG B and HCT Levels Ob Episode Information Episode Created Date Number of Fetuses Patient Bloodtype Patient rh Status Prepregnancy Weight lbs Domestic Partner Domestic Partner Phone Father Name Online Facilitator Status 03/18/20 20 1 CLOSED Fetus Data First Name Last Name Admitted to NICU Weight (g) Sex Living Outcome Pediatric Complications Fetus ID Race Codes Race Delivery Type [id number] Primary Sim Calculation Initial Sim Date Initial Exam Date Initial Exam Provider Initial Ultrasound Date Last Menstrual Period Date Ultra Sound Weeks Gestation 0 Eighteen To Twenty Week Ism Update Ultra Sound Date Fundal Height At Umbil Quickening Date Ultra Sound Latest Weeks Gestation Final Sim Confirmed By Final Sim Confirmed Date Final Sim Date Ultra Sound Latest Days Gestation 0 0 Menstrual History Last Menstrual Date Menses Monthly On Bcp Conception Prior Menses Frequency Hcg Plus Date Menarche Onset Age Delivery Information Delivery Date Delivery Type Labor Anesthesia Weeks Gestation Incision Type Labor Labor Length Hrs Delivered By Post Complications Tubal Sterilization Discharge Date Comments 4 Discharge Information Feeding Method Contraceptive Method Maternal HG B and HCT Levels
--- OUTSIDE RECORDS SUMMARY | 2024-10-09 14:12 | XMS_ITS | Clinical Summary ---
Author Organization [facility] Address [address] [place] [address] Care Team Providers Care Coal Loader Name Role Phone Seth Gann NP Primary Care Provider [phone] Allergies Active Allergy Reactions Criticality Noted Date [...] on file Legal Sex Female 10:22 AM MANAGER DIGITAL Gender Identity Not on file Sexual Orientation Not on file Obstetrics History Last Filed Vital Signs Vital Sign Reading Time Taken Comments Blood Pressure 138/86 07/05/2024 12:25 PM MANAGER DIGITAL Pulse 82 07/05/2024 12:25 PM MANAGER DIGITAL Temperature 36.8 C (98.3 F) 07/05/2024 12:25 PM MANAGER DIGITAL Respiratory Rate 20 07/05/2024 12:2 5 PM MANAGER DIGITAL Oxygen Saturation 97% 07/05/2024 12: 25 PM MANAGER DIGITAL Inhaled Oxygen Concentration - - Weight 50.3 kg (110 lb 12.8 oz) 025 12:25 PM MANAGER DIGITAL Height 152.4 cm (5') 01/01/2024 12:29 PM CDT Body Mass Index 21.64 01/01/2024 12:29 PM CDT Plan of Treatment Health Maintenance Due Date Last Done Comments Cervical Cancer Screening 1965 Colon Cancer Screening-Colonoscopy 1965 Depression Screening 1965 Hepatitis C Screening 1965 Hepatitis B Screening 12/01/1983 Regular Well Visit/Exam 18-64 12/01/1983 Zoster Vaccine (1 of 2) 12/01/2015 Breast Cancer Screening-Mammogram 06/08/2021 06/08/2020, 06/05/2020 Covid-19 Vaccine (3 - 2023-2 5 season) 2024 10/19/2020, 09/28/2020 Influenza Vaccine (#1) 2024 DTaP/Tdap/Td Vaccine (2 - Td or Tdap) 12/09/2030 12/09/2020 Pneumococcal vaccine <65 Aged Out No longer eligible based on patient's age to complete this topic Insurance [facility] CHOICE PLUS [facility] HMO/PPO Address: [address] [address] [place] [address] [employer] OPEN ACCESS Care Teams Coal Loader Relationship Specialty Start Date End Date Seth Gann NP [address] [place] [address] PCP - General Nurse Practitioner 01/01/24
--- OUTSIDE RECORDS SUMMARY | 2024-10-09 14:12 | XMS_ITS | Continuity of Care Document ---
Author Organization [facility] Address [address] [place] [address] [address] [place] [address] Phone Care Team Providers Care Architectural Engineering Teacher Name Role Phone Woods OD, Jose Unavailable Unavailable Procedures Procedure Date Eye Exam, New Patient Refraction Advance Directives Directive Yes / No Effective Date File Name No Information Encounters Encounter Description Practice Location Reason(s) For Visit Diagnoses Date Provider Providers Copied on Encounter [facility], [address] [place] [address] [address], [place], [place], [id number], [place] tel:[phone] [facility] No Information Feb-2 6-200 7 Woods OD Jose. [address] , [address], [place], [address], [place]. tel:[phone] Family History Family Member Type Diagnosis Age At Onset No Information Payers Payer name Insurance type Covered alliance party ID Authoriza tion(s) No Information Social History Type Description Quantity Date Captured Comments Sex Female Smoking Status No Information Chief Complaint And Reason For Visit No Information Reason For Referral Reason For Referral No Information History Of Present Illness Encounter Date Complaint History Of Prese nt Illness No Information Functional Status Date Functional Assessmen t No Information Instructions Date Instruction Additional Infor mation No Information Assessments Type Assessment Date No Information Patient Care Teams Name Effective Dates (start - stop) Status Members No Information
== END 2024-10-09 12:46 | disposition home or self-care (01) ==
LOC: ANHIMG 12:47
PROVIDERS: PCP Internal Medicine; Visit Provider Surgery
DX: N63.25 Unspecified lump in the left breast, overlapping quadrants (principal); R92.8 Other abnormal and inconclusive findings on diagnostic imaging of breast
CPT/HCPCS: 76642; 77061; 77065; G0279

== ENCOUNTER 2024-10-18 09:36 | Outpatient (CLI) | payer OTHER, SELFPAY ==
--- NOTE | ~2024-10-18 | MMUS_ITS ---
EXAMINATION: US breast biopsy LT w image, MM post biopsy diagnostic LT DATE: 10/18/2024 13:05 (accession [id number]), 10/18/2024 13:18 (accession [id number]) INDICATION: 58-year-old woman with a palpable abnormality within the left breast. Initially presented as a cyst aspiration, with subsequent return of the cystic focus following aspiration. BREAST PARENCHYMAL COMPOSITION:Scattered fibroglandular pattern TECHNIQUE: The procedure including the risks, benefits, and alternatives was discussed with the patie nt. Risks discussed included bleeding, nontargeted biopsy and infection. The patient understood the risks and agreed to proceed. The skin overlying the upper left breast was prepped and draped in usual sterile fashion. Anesthetic was administered with 1% lidocaine without epinephrine subcutaneously. Limited ultrasound examination of the left breast was then again performed. At the 12 position of the right breast approximately 1-2 cm from the nipple is a mostly well-circumsc ribed focus of decreased echogenicity measuring 2.7 x 3.2 x 3.0 mm, suitable for biopsy. A 9 gauge biopsy device was advanced utilizing continuous ultrasound guidance directly beneath the ab normality at the 12:00 position and multiple 10-gauge vacuum-assisted specimens were obtained. The biopsy device was then removed and through the introducer a coil microclip was placed. The entry site was cleaned and dressed with Steri-Strips. There were no immediate complications. Post biopsy mammography was then performed in both the CC and MLO positions demonstrating a coil micr oclip in the upper left breast without a significant perilesional hematoma. IMPRESSION: 1. Technically successful ultrasound-guided vacuum assisted core biopsy of a recurrent cystic focus a t the 12:00 position of the left breast approximately 1 to 2 cm from the nipple with post procedure m ammogram for marker placement. Pathology pending Reviewed, dictated and finalized at location A. IMPRESSION: 1. Technically successful ultrasound-guided vacuum assisted core biopsy of a re current cystic focus at the 12:00 position of the left breast approximately 1 t o 2 cm from the nipple with post procedure mammogram for marker placement. Pathology pending
--- OUTSIDE RECORDS SUMMARY | 2024-10-19 11:39 | XMS_ITS | Data Portability ---
Author Organization [facility] [place] Address [address] [place] [address] [place] [address] Care Team Providers Care Industrial Service Technician Name Role Phone [facility] Urologist Assessment Encounter Date Assessment Date Assessment LastModified by Organization Details LastModified Time 03/18/2020 03/18/2020 Annual gynecological exam performed. Patient will come back in a year unless there are new symptoms. [email or web address] Not available 03/18/2020 12:40:16 08/17/2020 08/17/2020 Additional precautionary measures were taken to minimize potential exposure to the Covid-19 virus during this patient s visit, including available hand family support worker upon arrive, temperature check and being asked [...] Lab urinalysis, dipstick 2020 021 [email or web address] [address], [address], [place], [address], 15:46:48 Referral None recorded. Procedures None recorded. Surgeries None recorded. Imaging None recorded. Medication Orders risedronate 150 mg tablet 2020 021 [email or web address] [id number], [address], [place], [address], 1 12:06:02 Macrobid 100 mg capsule 2019 020 [email or web address] [facility][id number], [address], [place], [address], 1 14:49:21 Pyridium 100 mg tablet 2019 020 [email or web address] [facility][id number], [address], [place], [address], 14:49:23 Patient TargetsNo targets recorded. Patient InstructionsNo [...] ---- ----- -- HPV High Risk Sam palacoi (TMA) ThinP rep Vial The human papil [...] and labor atory findi ngs. See https ://[employer]/s ites/ defau lt/fi 018-0 - 59284 _002_ .pd f for furth er infor matio n. Test perfo rmed by [facility] i[facility] log[facility] [employer], d/b/a ChandrakantG roup, [address] [facility], [place] [address] , Michael Gama ra, , Labor atory [...] and labor atory findi ngs. See https ://[employer]/s ites/ defau lt/fi -0 - 00911 _002_ 01.pd f for furth er infor matio n. Test perfo rmed by [facility]oc i[facility]o logis [employer], d/b/a Morelia carter, [address] [facility], [place] [address] , Michael Gama ra, , Labor atory Direc tor. End of Repor t Techn ical servi ryan provi ded by Ass[employer]oshmark iated Patho logis [employer], d/b/a Morelia carter, [address] [place] [address] Catracho Diez MD, Labor atorInExchange Dire tor. Case revie wed and diagn osis rende red at [facility] Patho logis , [facility], d/b/a PathRuben carter, [address] [facility] [address] [place] [address] Catracho Diez MD, Labor atory Dire tor. CONFI DENTI AL Not Available [facility] ([facility]) [address] [place] [address] Dr [address], [place], [address], 03/20/2020 20:06:05 03/18/20 20 03/20/2020 HPV DNA, high- risk HPV high risk NOT DETECT ED normal Not Available [facility] ([facility]) [address] [place] [address] Dr Ternt, [place], [address], 03/20/2020 20:06:05 04/27/20 20 04/28/2020 lipid panel , serum cholesterol 272 mg/dL <[address] [facility] ([facility]) [address] [place] [address] Dr Trent, [place], [address], 04/28/2020 11:16:59 04/27/20 20 04/28/2020 lipid panel , serum triglyceride s 99 mg/dL <[address] [facility] ([facility]) [address] [place] [address] Dr Trent, [place], [address], 04/28/2020 11:16:59 04/27/2004/28/2020 lipid panel , serum HDL cholesterol 128 mg/dL >39 Not Available [facility] ([facility]) [address] [place] [address] Dr Trent, [place], [address], 04/28/2020 11:16:59 04/27/20 20 04/28/2020 lipid panel , serum cholesterol / HDL ratio 2.13 ratio 0.00-4 .44 Not Available [facility] ([facility]) [address] [place] [address] Dr Trent, [place], [address], 04/28/2020 11:16:59 04/27/2004/28/2020 lipid panel , serum non-HDL cholesterol 144 mg/dL <130 high Not Available [facility] ([facility]) [address] [facility] [address], [place], [address], 04/28/2020 11:16:59 04/27/2004/28/2020 lipid panel , serum [...] 2003 ATPII I guide lines Not Available [facility] ([facility]) [address] [facility] [address], [place], [address], 04/28/2020 11:16:59 04/27/2004/28/2020 lipid panel , serum [...] -[facility] ([facility]) [address] [facility] [address] [address], [place], [address], 04/28/2020 11:16:59 04/27/20 20 04/28/2020 CBC WBC 7.1 K/uL 3.8-11 .5 Not Available [facility] ([facility]) [address], [place], [address], 04/28/2020 11:17:00 04/27/2004/28/2020 CBC red blood cell count (RBC) 3.83 M/mm3 3.60-5 .30 Not Available [facility] ([facility]) [address] [place] [address] Dr Trent, [place], [address], 04/28/2020 11:17:00 04/27/2004/28/2020 CBC hemoglobin (HGB) 12.9 gm/dL 11.5-1 5.5 Not Available [facility] ([facility]) [address] [place] [address] Dr Trent, [place], [address], 04/28/2020 11:17:00 04/27/2004/28/2020 CBC hematocrit (HCT) 37.1 % 35.2-4 6.4 Not Available [facility] ([facility]) [address] [place] [address] Dr Trent, [place], [address], 04/28/2020 11:17:00 04/27/2004/28/2020 CBC MCV 96.9 fL 79.0-9 9.0 Not Available [facility] ([facility]) [address] [place] [address] Dr [address], [place], [address], 04/28/2020 11:17:00 04/27/2004/28/2020 CBC MCH 33.7 pg 26.9-3 5.0 Not Available [facility] ([facility]) [address] [place] [address] Dr Trent, [place], [address], 04/28/2020 11:17:00 04/27/2004/28/2020 CBC MCHC 34.8 g/dL 30.4-3 4.8 Not Available [facility] ([facility]) [address] [place] [address] Dr [address], [place], [address], 04/28/2020 11:17:00 04/27/2004/28/2020 CBC RDW 41.6 fL 38.6-5 3.8 Not Available [facility] ([facility]) [address] [place] [address] Dr Trent, [place], [address], 04/28/2020 11:17:00 04/27/2004/28/2020 CBC platelet count 275 K/cum m 137-39 7 Not Available [facility] ([facility]) [address] [place] [address] Dr Trent, [place], [address], 04/28/2020 11:17:00 04/27/2004/28/2020 CMP, serum or plasm a sodium 142 mEq/L 135-14 5 Not Available [facility] ([facility]) [address] [place] [address] Dr [address], [place], [address], 04/28/2020 11:17:01 04/27/2004/28/2020 CMP, serum or plasm a potassium 5.8 mEq/L 3.5-5. 3 high Not Available [facility] ([facility]) [address] [place] [address] Dr Trent, [place], [address], 04/28/2020 11:17:01 04/27/2004/28/2020 CMP, serum or plasm a chloride 105 mEq/L 97-108 Not Available [facility] ([facility]) [address] [place] [address] Dr Trent, [place], [address], 04/28/2020 11:17:01 04/27/2004/28/2020 CMP, serum or plasm a CO2 26 mEq/L 22-32 Not Available [facility] ([facility]) [address] [place] [address] Dr [address], [place], [address], 04/28/2020 11:17:01 04/27/20 20 04/28/2020 CMP, serum or plasm a glucose 86 mg/dL 65-99 Not Available [facility] ([facility]) [address] [place] [address] Dr [address], [place], [address], 04/28/2020 11:17:01 04/27/20 20 04/28/2020 CMP, serum or plasm a BUN 14 mg/dL 6-20 Not Available [facility] ([facility]) [address] [place] [address] Dr Trent, [place], [address], 04/28/2020 11:17:01 04/27/2004/28/2020 CMP, serum or plasm a creatinine 0.65 mg/dL 0.50-1 .00 Not Available [facility] ([facility]) [address] [place] [address] Dr [address], [place], [address], 04/28/2020 11:17:01 04/27/2004/28/2020 CMP, serum or plasm a calcium 9.8 mg/dL 8.6-10 .4 Not Available [facility] ([facility]) [address] [place] [address] Dr [address], [place], [address], 04/28/2020 11:17:01 04/27/2004/28/2020 CMP, serum or plasm a protein 6.9 g/dL 6.0-8. 3 Not Available [facility] ([facility]) [address] [place] [address] Dr Trent, [place], [address], 04/28/2020 11:17:01 04/27/2004/28/2020 CMP, serum or plasm a albumin 5.0 g/dL 3.5-5. 3 Not Available [facility] ([facility]) [address] [place] [address] Dr Trent, [place], [address], 04/28/2020 11:17:01 04/27/202020 CMP, serum or plasm a alkaline phosphatase 85 IU/L 35-121 Not Available [facility] ([facility]) [address] [place] [address] Dr Trent, [place], [address], 04/28/2020 11:17:01 04/27/2004/28/2020 CMP, serum or plasm a ALT (SGPT) 29 IU/L <5-47 Not Available [facility] ([facility]) [address] [place] [address] Dr Trent, [place], [address], 04/28/2020 11:17:01 04/27/2004/28/2020 CMP, serum or plasm a AST (SGOT) 52 IU/L <5-40 high Not Available [facility] ([facility]) [address] [place] [address] Dr Trent, [place], [address], 04/28/2020 11:17:01 04/27/2004/28/2020 CMP, serum or plasm a bilirubin, total 0.5 mg/dL <0.2-1 .2 Not Available [facility] ([facility]) [address] [place] [address] Dr Trent, [place], [address], 04/28/2020 11:17:01 04/27/2004/28/2020 CMP, serum or plasm a A/G ratio 2.6 mg/dL 1.1-2. 5 high Not Available [facility] ([facility]) [address] [place] [address] Dr Trent, [place], [address], 04/28/2020 11:17:01 04/27/2004/28/2020 GFR, estim ated (eGFR ), serum estimated GFR (black) 116 mL/mi n/1.7 3m2 >59 Not Available [facility] ([facility]) [address] [place] [address] Dr Trent, [place], [address], 04/28/2020 11:17:01 04/27/20 20 04/28/2020 GFR, estim [...] e mass or diet. Not Available [facility] ([facility]) [facility] [facility] [address], [place], [address], 04/28/2020 11:17:01 04/27/20 20 04/28/2020 hemol ysis inter feren ce hemolysis interference SEE COMMEN T Speci men is sligh tly hemol yzed. Resul ts for Potas sium may be affec neli. Resul ts shoul d be inter prete d in conju nctio n with clini gurpreet prese ntati on and histo ry. Not Available [facility] ([facility]) [facility] [address], [place], [address], 04/28/2020 11:17:02 04/27/20 20 04/28/2020 HbA1c (hemo [...] ic <5.7% Non-D iabet ic Not Available [facility] ([facility]) [address] [place] [address] Dr Trent, [place], [address], 04/28/2020 11:17:02 04/27/2004/28/2020 estim ated avera ge gluco se estimated average glucose 94 mg/dL Montalba ge Gluco se is calcu lated using the equat ion AG = (28.7 x HgbA1 c) - 46.7 based on the guide lines estab lishe d by the ADA. Not Available [facility] ([facility]) [address] [place] [address] Dr [address], [place], [address], 04/28/2020 11:17:03 04/27/2004/28/2020 T4, free, serum thyroxine free (free T4) 1.02 NG/dL 0.86-1 .76 Not Available [facility] ([facility]) [address] [place] [address] Dr [address], [place], [address], 04/28/2020 11:17:03 04/27/2004/28/2020 TSH, serum or plasm a TSH reflex to FT4 6.16 mU/L 0.27-4 .20 high Not Available [facility] ([facility] [employer]) [address] [place] [address] Dr Trent, [place], [address], 04/28/2020 11:17:04 04/27/2004/28/2020 vitam in D, 25-hy [...] corre latio n requi red. Not Available [facility] ([facility]) [address] [place] [address] Dr Trent, [place], [address], 04/28/2020 11:17:04 07/09/1907/10/2020 CBC w/ auto diff WBC 6.3 K/uL 3.8-11 .5 Not Available [facility] ([facility]) [address] [place] [address] Dr Trent, [place], [address], 07/10/2020 08:33:35 07/09/19 21 07/10/2020 CBC w/ auto diff red blood cell count (RBC) 3.99 M/mm3 3.60-5 .30 Not Available [facility] ([facility]) [address] [place] [address] Dr [address], [place], [address], 07/10/2020 08:33:35 07/09/19 21 07/10/2020 CBC w/ auto diff hemoglobin (HGB) 13.1 gm/dL 11.5-1 5.5 Not Available [facility] ([facility]) [address] [place] [address] Dr [address], [place], [address], 07/10/2020 08:33:35 07/09/1907/10/2020 CBC w/ auto diff hematocrit (HCT) 38.3 % 35.2-4 6.4 Not Available [facility] ([facility]) [address] [place] [address] Dr Trent, [place], [address], 07/10/2020 08:33:35 07/09/19 21 07/10/2020 CBC w/ auto diff MCV 96.0 fL 79.0-9 9.0 Not Available [facility] ([facility]) [address] [place] [address] Dr Trent, [place], [address], 07/10/2020 08:33:35 07/09/19 21 07/10/2020 CBC w/ auto diff MCH 32.8 pg 26.9-3 5.0 Not Available [facility] ([facility]) [address] [place] [address] Dr [address], [place], [address], 07/10/2020 08:33:35 07/09/19 21 07/10/2020 CBC w/ auto diff MCHC 34.2 g/dL 30.4-3 4.8 Not Available [facility] ([facility]) [address] [place] [address] Dr [address], [place], [address], 07/10/2020 08:33:35 07/09/19 21 07/10/2020 CBC w/ auto diff RDW 40.2 fL 38.6-5 3.8 Not Available [facility] ([facility]) [address] [place] [address] Dr [address], [place], [address], 07/10/2020 08:33:35 07/09/19 21 07/10/2020 CBC w/ auto diff platelet count 321 K/cum m 137-39 7 Not Available [facility] ([facility]) [address] [place] [address] Dr [address], [place], [address], 07/10/2020 08:33:35 07/09/19 21 07/10/2020 CBC w/ auto diff neutrophils automated 39.1 % 41.0-7 7.0 low Not Available [facility] ([facility]) [address] [place] [address] Dr Trent, [place], [address], 07/10/2020 08:33:35 07/09/19 21 07/10/2020 CBC w/ auto diff lymphocytes automated 43.5 % 14.0-4 8.0 Not Available [facility] ([facility]) [address] [place] [address] Dr [address], [place], [address], 07/10/2020 08:33:35 07/09/19 21 07/10/2020 CBC w/ auto diff monocytes automated 10.5 % 4.0-13 .0 Not Available [facility]) [address] [place] [address] Dr Trent, [place], [address], 07/10/2020 08:33:35 07/09/19 21 07/10/2020 CBC w/ auto diff eosinophils automated 5.6 % 0.0-8. 0 Not Available [facility]) [address] [place] [address] Dr Trent, [place], [address], 07/10/2020 08:33:35 07/09/19 21 07/10/2020 CBC w/ auto diff basophils automated 1.0 % 0.0-1. 5 Not Available [facility]) [address] [place] [address] Dr [address], [place], [address], 07/10/2020 08:33:35 07/09/19 21 07/10/2020 CBC w/ auto diff immature granulocyte automated 0.3 % 0.0-1. 0 Not Available [facility]) [address] [place] [address] Dr Trent, [place], [address], 07/10/2020 08:33:35 07/09/19 21 07/10/2020 CMP, serum or plasm a sodium 144 mEq/L 135-14 5 Not Available [facility]) [address] [place] [address] Dr Trent, [place], [address], 07/10/2020 08:33:36 07/09/19 21 07/10/2020 CMP, serum or plasm a potassium 5.5 mEq/L 3.5-5. 3 high Not Available [facility]) [address] [place] [address] Dr Trent, [place], [address], 07/10/2020 08:33:36 07/09/19 21 07/10/2020 CMP, serum or plasm a chloride 105 mEq/L 97-108 Not Available [facility]) [address] [place] [address] Dr Trent, [place], [address], 07/10/2020 08:33:36 07/09/19 21 07/10/2020 CMP, serum or plasm a CO2 28 mEq/L 22-32 Not Available [facility] ([facility]) [address] [place] [address] Dr Trent, [place], [address], 07/10/2020 08:33:36 07/09/19 21 07/10/2020 CMP, serum or plasm a glucose 69 mg/dL 65-99 Not Available [facility]) [address] [place] [address] Dr Trent, [place], [address], 07/10/2020 08:33:36 07/09/19 21 07/10/2020 CMP, serum or plasm a BUN 13 mg/dL 6-20 Not Available [facility]) [address] [place] [address] Dr Trent, [place], [address], 07/10/2020 08:33:36 07/09/1907/10/2020 CMP, serum or plasm a creatinine 0.60 mg/dL 0.50-1 .00 Not Available [facility]) [address] [place] [address] Dr Trent, [place], [address], 07/10/2020 08:33:36 07/09/19 21 07/10/2020 CMP, serum or plasm a calcium 9.9 mg/dL 8.6-10 .4 Not Available [facility]) [address] [place] [address] Dr Trent, [place], [address], 07/10/2020 08:33:36 07/09/19 21 07/10/2020 CMP, serum or plasm a protein 6.8 g/dL 6.0-8. 3 Not Available [facility]) [address] [place] [address] Dr Trent, [place], [address], 07/10/2020 08:33:36 07/09/1907/10/2020 CMP, serum or plasm a albumin 4.7 g/dL 3.5-5. 3 Not Available [facility]) [address] [place] [address] Dr Trent, [place], [address], 07/10/2020 08:33:36 07/09/19 21 07/10/2020 CMP, serum or plasm a alkaline phosphatase 73 IU/L 35-121 Not Available [facility]) [address] [place] [address] Dr Trent, [place], [address], 07/10/2020 08:33:36 07/09/19 21 07/10/2020 CMP, serum or plasm a ALT (SGPT) 19 IU/L <5-47 Not Available [facility] ([facility]) [address] [place] [address] Dr Trent, [place], [address], 07/10/2020 08:33:36 07/09/19 21 07/10/2020 CMP, serum or plasm a AST (SGOT) 22 IU/L <5-40 Not Available [facility] ([facility]) [address] [place] [address] Dr Trent, [place], [address], 07/10/2020 08:33:36 07/09/19 21 07/10/2020 CMP, serum or plasm a bilirubin, total 0.4 mg/dL <0.2-1 .2 Not Available [facility] ([facility]) [address] [place] [address] Dr Trent, [place], [address], 07/10/2020 08:33:36 07/09/1907/10/2020 CMP, serum or plasm a A/G ratio 2.2 mg/dL 1.1-2. 5 Not Available [facility] [address] [place] [address] Dr Trent, [place], [address], 07/10/2020 08:33:36 07/09/1907/10/2020 GFR, estim ated (eGFR ), serum estimated GFR (black) 119 mL/mi n/1.7 3m2 >59 Not Available [facility] [address] [place] [address] Dr Trent, [place], [address], 07/10/2020 08:33:36 07/09/1907/10/2020 GFR, estim ated (eGFR [...] muscl e mass or diet. Not Available [facility] ([facility]) [address] [place] [address] Dr Trent, [place], [address], 07/10/2020 08:33:36 07/09/1907/10/2020 phosp horus , serum or plasm a phosphorus 4.3 mg/dL 2.5-4. 5 Not Available [facility] [address] [place] [address] Dr Trent, [place], [address], 07/10/2020 08:33:36 07/09/1907/10/2020 TSH, serum or plasm a TSH reflex to FT4 0.37 mU/L 0.27-4 .20 Not Available [facility] ([facility]) [address] [place] [address] Dr Trent, [place], [address], 07/10/2020 08:33:37 07/09/1907/10/2020 vitam in D, 25-hy [...] corre latio n requi red. Not Available [facility] [address] [place] [address] Dr Trent, [place], [address], 07/10/2020 08:33:37 01/16/2001/15/2021 URINA LYSIS , WITH MICRO SCOPI C color, urine Yellow colorl ess, light yellow , yellow , dark yellow , straw Not Available [facility] (Lab) [address], [place], [address], 01/16/2021 22:36:34 01/16/20 21 01/15/2021 URINA LYSIS , WITH MICRO SCOPI C clarity, urine Slight ly Cloudy abnormal Not Available [facility] (Lab) [address], [place], [address], 01/16/2021 22:36:34 01/16/20 21 01/15/2021 URINA LYSIS , WITH MICRO SCOPI C glucose, urine Negati ve mg/dL negati ve Not Available [facility] (Lab) [address], [place], [address], 01/16/2021 22:36:34 01/16/20 21 01/15/2021 URINA LYSIS , WITH MICRO SCOPI C bilirubin, urine Negati ve mg/dL negati ve Not Available [facility] (Lab) [address], [place], [address], 01/16/2021 22:36:34 01/16/20 21 01/15/2021 URINA LYSIS , WITH MICRO SCOPI C ketones, urine Negati ve mg/dL negati ve Not Available [facility] (Lab) [address], [place], [address], 01/16/2021 22:36:34 01/16/20 21 01/15/2021 URINA LYSIS , WITH MICRO SCOPI C pH, urine 6.0 . 5.0-9. 0 Not Available [facility] (Lab) [address], [place], [address], 01/16/2021 22:36:34 01/16/20 21 01/15/2021 URINA LYSIS , WITH MICRO SCOPI C specific gravity, urine 1.012 . 1.001- 1.035 Not Available [facility] (Lab) [address], [place], [address], 01/16/2021 22:36:34 01/16/20 21 01/15/2021 URINA LYSIS , WITH MICRO SCOPI C blood, urine Small negati ve abnormal Not Available [facility] (Lab) [address], [place], [address], 01/16/2021 22:36:34 01/16/20 21 01/15/2021 URINA LYSIS , WITH MICRO SCOPI C protein, urine Negati ve mg/dL negati ve Not Available [facility] (Lab) [address], [place], [address], 01/16/2021 22:36:34 01/16/20 21 01/15/2021 URINA LYSIS , WITH MICRO SCOPI C urobilinogen , urine <2.0 mg/dL <2.0 Not Available [facility] (Lab) [address], [place], [address], 01/16/2021 22:36:34 01/16/20 21 01/15/2021 URINA LYSIS , WITH MICRO SCOPI C nitrite, urine Negati ve negati ve Not Available [facility] (Lab) [address], [place], [address], 01/16/2021 22:36:34 01/16/20 21 01/15/2021 URINA LYSIS , WITH MICRO SCOPI C leukocyte esterase, urine Negati ve negati ve Not Available [facility] (Lab) [address], [place], [address], 01/16/2021 22:36:34 01/16/20 21 01/15/2021 URINA LYSIS , WITH MICRO SCOPI C WBC, urine 0-5 /hpf none, 0-5 Not Available [facility] (Lab) [address], [place], [address], 01/16/2021 22:36:34 01/16/20 21 01/15/2021 URINA LYSIS , WITH MICRO SCOPI C RBC, urine 0-2 /hpf none, 0-2 Not Available [facility] (Lab) [address], [place], [address], 01/16/2021 22:36:34 01/16/20 21 01/15/2021 URINA LYSIS , WITH MICRO SCOPI C bacteria, urine None /hpf none Not Available [facility] (Lab) [address], [place], [address], 01/16/2021 22:36:34 01/16/20 21 01/15/2021 URINA LYSIS , WITH MICRO SCOPI C squamous epithelial cells, urine Modera te /hpf none abnormal Not Available [facility] (Lab) [address], [place], [address], 01/16/2021 22:36:34 01/16/20 21 01/15/2021 CULTU RE: URINE result report SEE RESULT S BELOW Test: Cultu re: Urine Speci men Sourc e: Urine Voide d Speci men Type: Urine Speci men Date: 2020 2:43 PM Resul t Date: 2020 9:32 PM Resul t Statu s: Final resul t Abnor mal: No Resul ting Lab: [facility] [address] [facility] [address] Tel: CULTU RE ----- ----- ----- --- No growt h in 1 day (dete ction level of 10,00 0 colon ies / ml.) Not Available [facility] (Lab) [address], [place], [address], 01/16/2021 22:36:35 01/16/20 21 01/15/2021 urina lysis , dipst ick Leukocytes neg Not Available [facility] [address], [place], [address], 01/15/2021 14:41:50 01/16/20 21 01/15/2021 urina lysis , dipst ick Nitrite neg Not Available [address], [place], [address], 01/15/2021 14:41:50 01/16/20 21 01/15/2021 urina lysis , dipst ick Urobilinogen neg Not Available [facility] deng [address], [place], [address], 01/15/2021 14:41:50 01/16/20 21 01/15/2021 urina lysis , dipst ick Protein neg Not Available [facility] [address], [place], [address], 01/15/2021 14:41:50 01/16/20 21 01/15/2021 urina lysis , dipst ick pH 5 Not Available [facility] [address], [place], [address], 01/15/2021 14:41:50 01/16/20 21 01/15/2021 urina lysis , dipst ick Blood trace Not Available [facility] [address], [place], [address], 01/15/2021 14:41:50 01/16/20 21 01/15/2021 urina lysis , dipst ick Specific Gibson neg Not Available [facility] elidia [address], [place], [address], 01/15/2021 14:41:50 01/16/20 21 01/15/2021 urina lysis , dipst ick Ketone neg Not Available [facility] [address], [place], [address], 01/15/2021 14:41:50 01/16/20 21 01/15/2021 urina lysis , dipst ick Bilirubin neg Not Available [facility] [address], [place], [address], 01/15/2021 14:41:50 01/16/20 21 01/15/2021 urina lysis , dipst ick Glucose neg Not Available [facility] [address], [place], [address], 01/15/2021 14:41:50 01/16/20 21 01/15/2021 urina lysis , dipst ick Appearance clear Not Available [facility] rylie [address], [place], [address], 01/15/2021 14:41:50 01/16/20 21 01/15/2021 urina lysis , dipst ick Color straw Not Available [facility] [address], [place], [address], 01/15/2021 14:41:50 03/18/20 20 02/25/2020 CT, abdom en, w/o contr ast No observ ation record ed. [facility] [address], [place], [address], 03/23/2020 13:24:50 06/05/20 20 06/05/2020 MAMMO , scree lexis, bilat eral No observ ation record ed. [facility] [address], [place], [address], 06/16/2020 13:44:27 06/08/20 20 06/05/2020 MAMMO , scree lexis, bilat eral No observ ation record ed. [facility] [address], [place], [address], 06/16/2020 13:26:52 06/30/19 21 DEXA, axial skele ton + verte bral fract ure asses sment No observ ation record ed. [facility] [address], [place], [address], 07/07/2020 17:03:15 07/27/19 21 07/27/2020 MAMMO , diagn ostic , bilat eral No observ ation record ed. [facility] [address], [place], [address], 07/31/2020 16:35:48 Result Notes None recorded. Problems Name Problem SNOMED Code Status Onset Date Resolution Date Notes Provider Name and Address Organization Details Recorded Time Pelvic and perineal pain 916308481 Active 2015 Pelvic and perineal pain;Pra ctice ID: 0001 Not Available [facility] 0 21:52:52 Dyspareu low 12365928 Active 2015 Dyspareu low;Prac charlene ID: 0001 Not Available [facility] 0 21:52:52 Cyst of ovary 13620677 Active 2015 Unspecif ied ovarian cysts;Pr actice ID: 0001 Not Available [facility] 0 21:52:52 Finding of trunk structur e 223147621 Active 2015 Generali zed intra-ab d and pelvic swelling , mass and lump;Pra ctice ID: 0001 Not Available [facility] 0 21:52:52 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 Oth noninfla mmatory disord of ovary, fallop and broad ligmt;Pr actice ID: 0001 Not Available [facility] 0 21:52:52 Lesion of ovary Active 2015 Other ovarian cyst, right side;Pra ctice ID: 0001 Not Available [facility] 0 21:52:52 Increase d frequenc y of urinatio n 140277242 Active 2017 Frequenc y of micturit ion;Prac charlene ID: 0001 Not Available [facility] 0 21:52:[address] Concept Active 2017 Encounte r for general adult medical exam w abnormal findings ;Practic e ID: 0001 Not Available [facility] 0 21:52:[address] Concept Active 2017 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 ) w/o abn [...] [facility] 0 21:52:53 Pregnanc y test negative 845818315 Active 2010 Negative Pregnanc y Test;Pra ctice ID: 0001 Not Available [facility] 0 21:52:53 Ill-defi dima intestin al infectio n Active 2011 No Show Fee;Prac charlene ID: 0001 Not Available [facility] 0 21:52:53 Right lower quadrant pain 389705436 Active 2011 Abdomina l pain, right lower quadrant ;Practic e ID: 0001 Not Available [facility] 0 21:52:53 Speciali zed medical examinat ion Active 2011 Routine gynecolo gical examinat ion;Prac charlene ID: 0001 Not Available [facility] 0 21:52:53 Screenin g for malignan t neoplasm of cervix Active 2011 Pap Smear;Pr actice ID: 0001 Not Available [facility] 0 21:52:53 Tobacco dependen ce syndrome 09687206 Active 2011 Nondepen dent tobacco use disorder ;Practic e ID: 0001 Not Available [facility] 0 21:52:54 Efrain hematuri a 489101433 Active 2011 GROSS HEMATURI A;Practi ce ID: 0001 Not Available [facility] 0 21:52:54 Postmeno pausal bleeding 00957317 Active 2011 Postmeno pausal bleeding ;Practic e ID: 0001 Not Available [facility] 0 21:52:54 Screenin g for malignan t neoplasm of rectum Completed 201103/21/2012 Screenin g for malignan t neoplasm s of the rectum;R ecorded Elsewher e: No Locat ion: [facility] S ource: EHR Supervisor Heat Treating joesph: N Practi ce ID: 0001 Gregor lable Time: 11:30:00 AM Not Available [facility] 0 21:52:54 Microsco pic hematuri a 586520761 Completed 201103/21/2012 MICROSCO PIC HEMATURI A;Record ed Elsewher e: No Locat ion: [facility] S ource: EHR Supervisor Heat Treating joesph: N Practi ce ID: 0001 Gregor lable Time: 11:30:00 AM Not Available [facility] 0 21:52:[address] Concept Active 2015 Encntr for general adult medical exam w/o abnormal findings ;Recorde d Elsewher e: No Locat ion: [facility] S ource: EHR Supervisor Heat Treating joesph: N Practi ce ID: 0001 Gregor lable Time: 12:30:00 PM Not Available [facility] 0 21:52:55 Osteopor osis 75878103 Active 2017 Age-rela neli osteopor osis w/o current patholog ical fracture ;Recorde d Elsewher e: No Locat ion: [facility] S ource: EHR Supervisor Heat Treating joesph: N Practi ce ID: 0001 Gregor lable Time: 04:05:27 PM Not Available [facility] 0 21:52:55 Problem Notes None recorded. Procedures Surgical History Date Name Laterality Status Provider Name and Address Organization Details Recorded Time 03/18/20 Date of Last Pap Smear completed Yeni Zaidi [facility] 08/17/2020 11:21:36 [facility] 03/18/2020 12:44:54 Removal of fallopian tube completed Yeni Zaidi [facility] 03/18/2020 12:45:08 Partial Hysterectomy completed Yeni Zaidi [facility] 03/18/2020 12:45:15 Tubal Ligation completed Yeni Zaidi [facility] 03/18/2020 12:45:19 Imaging Results Imaging Date Name Status LastModified by Organiz ation Details LastModified Time 02/25/2020 CT, abdomen, w/o contrast completed [facility] [address], [place], [address], 03/23/2020 13:24:50 06/05/2020 MAMMO, screening, bilateral completed [facility] [address], [place], [address], 06/16/2020 13:44:27 06/05/2020 MAMMO, screening, bilateral completed [facility] [address], [place], [address], 06/16/2020 13:26:52 06/30/2020 DEXA, axial skeleton + vertebral fracture assessment completed [facility] [address], [place], [address], 07/07/2020 17:03:15 07/27/2020 MAMMO, diagnostic, bilateral completed [facility] [address], [place], [address], 07/31/2020 16:35:48 Procedure Notes None recorded. Medical Equipment None Reported. Allergies Allergen ID Allergen Name Allergen Category Reaction Reaction Severity Criticality Documentation Date Start Date Code Code System Note Provider Name and Address Organization Details Recorded Time 2212 amoxicill in medicatio n Not available Not available Not available 03/18/2020 723 RxNorm Yeni jaramillo [facility] 0 12:44:05 Medications Name Sig Start [...] Prescrib ed Elsewher e: Yes Loca tion: [facility]ify By: karissa de luna DateTime : 12/03/19 16 12:30:00 PM Not Available Not Available Not Available Vitamin D2 1,250 mcg (50,000 unit) capsule take 1 capsule by oral route every week 2017 active Prescrib ed Elsewher e: No Locat ion: [facility]ify By: les de luna DateTime : 03/02/20 18 03:59:19 PM Not Available Not Available Not Available Stanback Headache Powder 650 mg oral packet 12/02 completed Prescrib ed Elsewher e: Yes Loca tion: [facility] By: tessie marshall DateTime : 09/13/19 12 11:30:00 AM Not Available Not Available Not Available Bactrim DS 800 mg-160 mg tablet take 1 tablet by oral route every 12 hours 03/21 completed Prescrib ed Elsewher e: No Locat ion: [facility]ify By: melanie sesay DateTime : 09/19/19 [...] Updated DateTime 08/17/2020 152.4 cm 20.7 kg/m2 98031.79 g 115 mm[Hg] 73 mm[Hg] Yeni [facility] 1 14:49:17 Date Recorded Body height Provider Name an d Address Organization Details Last Updated DateTime 01/15/2021 152.4 cm Katey Britt [facility] 01/15/2021 14:39:11 Date Recorded Body height Body mass index (BMI) Body weight Systolic blood pressure Diastolic blood pressure Provider Name and Address Organization Details Last Updated DateTime 03/18/2020 152.4 cm 19.7 kg/m2 99909.83 g 128 mm[Hg] 84 mm[Hg] Yeni [facility] 0 12:51:16 Social History None recorded. [...] SNOMED-CT Code Diagnosis ICD10 Code Diagnosis Note [id number] Sarah Beth Sierra [facility] [address] [address] 03/18/2020 12:37:57 03/18/2020 13:20:16 Gynecologic examination 44095062 Z00.01 Take Calcium with Vitamin D 12-1500mg daily. Do monthly self breast exams. It is advised to get annual flu shot in the fall and she could obtain at [facility] or [facility]3]. If you haven't received the Tdap vaccine [...] she disclosed today. Increased frequency of urination 806416557 R35.0 Macrobid sent Pyridium sent Urine tested elsewhere & told cystitis but no one called her in anything. We discussed that there could also be a component of IC as well. Will treat based on subjective complaints but needs to consider urology if sx's persist. [id number] Sarah Beth Sierra , [facility] [address] [address] 08/17/2020 14:42:37 08/19/2020 21:57:45 Postmenopausal osteoporosis 555462455 M81.0 Recommend: Osteopanel , Calcium 1200mg in [...] check in yearly. Mastodynia of bilateral breasts [id number] 5072887 N64.4 Recommend seeking breast specialist for additional evaluation to ensure no other issues. She agrees. Cigarette smoker 0169646 7 F17.210 We reviewed smoking cessation options including nicotine patches, wellbutrin (not interested in chantix); counseling . She is contemplat ing and moving towards cessation motivated by new grandbaby that is coming soon. She wants to help take care of her grandbaby and the stipulatio n is that she quits smoking so as to not expose baby to second hand smoke. [id number] Sarah Beth Sierra [facility] [address] [address] 01/15/2021 14:03:37 01/16/2021 14:26:46 Blood in urine 39688505 R31.9 Health Concerns Section Related Observation LastModified by Organization Detai ls LastModified Time None Recorded Concern Status LastModified by Organization Details LastModified Time None Recorded Advance Directives Directive None Recorded Payers Encounter Date Sequence Insurance Name Policy Number Policy Carrington Covered Member ID Carrington Member ID Guarantor Name 03/18/[address] [id number] [facility] 08/17/[address] [id number] [facility] 01/15/[address] [id number] [facility] Notes Date Note Type Note Provider Name [...] on colonoscopy screening Smoker Sarah Beth Sierra [facility] [address], [place], [address], [facility] 03/18/2020 13:14:13 08/17/2020 text/html Patient is here today to discuss the followin. Mammo results 2. Dexa results and recommendations 3. Smoking cessation Sarah Bteh Sierra, [facility]- [address], [place], [address], [place] [facility] 08/25/2020 09:28:18 OBGyn Episode Ob Episode Information Episode Created Date Number of Fetuses Patient Bloodtype Patient rh Status Prepregnancy Weight lbs Domestic Partner Domestic Partner Phone Father Name Senior Qa Automation Engineer Status 03/18/20 20 1 CLOSED Fetus Data [...] Domestic Partner Domestic Partner Phone Father Name Senior Qa Automation Engineer Status 03/18/20 20 1 CLOSED Fetus Data [...]
--- OUTSIDE RECORDS SUMMARY | 2024-10-19 11:39 | XMS_ITS | Continuity of Care Document ---
Author Organization [facility] Address [address] [place] [address] [address] [place] [address] Phone Care Team Providers Care International Account Manager Name Role Phone Woods OD, Jose Unavailable Unavailable Procedures Procedure Date Eye Exam, New Patient Refraction Advance Directives Directive Yes / No Effective Date File Name No Information Encounters Encounter Description Practice Location Reason(s) For Visit Diagnoses Date Provider Providers Copied on Encounter [facility], [address] [place] [address] [address], [place], [place], [id number], [place] tel:[phone] [facility] No Information Feb- 6-200 7 Woods OD Jose. [address], [place], [address], [place]. tel:[phone] Family History Family Member Type Diagnosis Age At Onset No Information Payers Payer name Insurance type Covered democrat ID Authoriza tion(s) No Information Social History [...]
--- OUTSIDE RECORDS SUMMARY | 2024-10-19 11:39 | XMS_ITS | Clinical Summary ---
Author Organization [facility] Address [address] [place] [address] Care Team Providers Care Dean Of Girls Name Role Phone Seth Gann NP Primary [...] on file Legal Sex Female 10:22 AM BEER RUNNER Gender Identity Not on file Sexual Orientation Not on file Obstetrics History Last Filed Vital Signs Vital Sign Reading Time Taken Comments Blood Pressure 138/86 07/05/2024 12:25 PM BEER RUNNER Pulse 82 07/05/2024 12:25 PM BEER RUNNER Temperature 36.8 C (98.3 F) 07/05/2024 12:25 PM BEER RUNNER Respiratory Rate 20 07/05/2024 12:2 5 PM BEER RUNNER Oxygen Saturation 97% 07/05/2024 12: 25 PM BEER RUNNER Inhaled Oxygen Concentration - - Weight 50.3 kg (110 lb 12.8 oz) 025 12:25 PM BEER RUNNER Height 152.4 cm (5') 01/01/2024 12:29 PM [...] patient's age to complete this topic Insurance [facility] CHOICE [employer]US [employer] OPEN ACCESS Care Teams Dean Of Girls Relationship Specialty Start Date End Date Seth Gann NP [address] [place] [address] PCP - General Nurse Practitioner 01/01/24
--- OUTSIDE RECORDS SUMMARY | 2024-10-19 11:39 | XMS_ITS | Referral Summary ---
Author Organization 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 Gender Identity Not on file Sexual Orientation Not on file Last Filed Vital Signs Vital Sign Reading Time Taken Comments Blood Pressure 138/86 07/05/2024 12:25 PM DENTAL LABORATORY TECHNICIAN APPRENTICE Pulse 82 07/05/2024 12:25 PM DENTAL LABORATORY TECHNICIAN APPRENTICE Temperature 36.8 C (98.3 F) 07/05/2024 12:25 PM DENTAL LABORATORY TECHNICIAN APPRENTICE Respiratory Rate 20 07/05/2024 12:2 5 PM DENTAL LABORATORY TECHNICIAN APPRENTICE Oxygen Saturation 97% 07/05/2024 12: 25 PM DENTAL LABORATORY TECHNICIAN APPRENTICE Inhaled Oxygen Concentration - - Weight 50.3 kg (110 lb 12.8 oz) 025 12:25 PM DENTAL LABORATORY TECHNICIAN APPRENTICE Height 152.4 cm (5') 01/01/2024 12:29 PM CDT Body Mass Index 21.64 01/01/2024 12:29 PM CDT Plan of Treatment Not on file Insurance CHOICE [employer]US [employer] OPEN ACCESS Care Teams Claims Agent Right Of Way Relationship Specialty Start Date End Date Seth Gann NP [address] [place] [address] PCP - General Nurse Practitioner 01/01/24
== END 2024-10-18 09:37 | disposition home or self-care (01) ==
PROVIDERS: PCP Internal Medicine; Visit Provider Surgery
DX: N61.0 Mastitis without abscess (principal); N63.25 Unspecified lump in the left breast, overlapping quadrants; R92.8 Other abnormal and inconclusive findings on diagnostic imaging of breast
CPT/HCPCS: 19083; 77065; 88305; A4648

== ENCOUNTER 2024-11-01 13:46 | Outpatient (CLI) | payer OTHER, SELFPAY ==
--- NOTE | ~2024-11-01 | DEXA_ITS ---
Bone Density Report Name: NING ANTONIO Age: 58 Sex: Female Ethnicity: White Date of : 1965 Indication: postmenopausal; screening for osteoporosis; prior fracture; hysterectomy; Referring Provider: MARCY, NARDA Study: Bone densitometry was performed. Exam Date: November 01, 2024 Accession number: [id number] Bone Density: Region BMD T-score Z-score Classification AP Spine(L1-L4) 0.867 -1.6 -0.3 Osteopenia Femoral Neck (Left) 0.584 -2.4 -1.2 Osteopenia Total Hip (Left) 0.659 -2.3 -1.4 Osteopenia Femoral Neck (Right) 0.586 -2.4 -1.1 Osteopenia Total Hip (Right) 0.693 -2.0 -1.2 Osteopenia Total Hip Mean 0.676 -2.2 -1.3 Osteopenia World Health Organization criteria for BMD impression classify patients as: Normal (T-score at or above -1.0), Osteopenia (T-score between -1.0 and -2.5), or Osteoporosis (T-score at or below -2.5). 10-year Fracture Risk: FRAX not reported because: Treated for osteoporosis Clinical Information Provided by Patient: Has had a low trauma fracture Smokes Has 3 or more alcoholic drinks per day Is being treated for osteoporosis Has used the following medications: Prolia (i.e. denosumab), Vitamin D, Calcium Has the following medical conditions: Hysterectomy Patient maximum height was 61 Menopause Age: 45 Does not regularly consume dairy products Drinks caffeinated beverages Onset of menses at age 11 Number of children 2 Impression: The patient has low bone mass, based on the Left Femoral Neck T-score. The patient has risk factors, including: smoking, excessive alcohol use, previous fracture. Discussion: It is important to ask patients whether they are taking their medications and to encourage continued and appropriate compliance with their osteoporosis therapies to reduce fracture risk. It is also important to review their risk factors and encourage appropriate calcium and vitamin D intakes, exercise, fall prevention and other lifestyle measures. Follow-Up: Consider a repeat BMD and Vertebral Fracture Assessment (VFA) exam in 2 years or sooner if medically necessary, to reassess this patient's status. Reported by: ROAL on 11/01/2024 2:23:00 PM. Reviewed, dictated and finalized at location A.
--- OUTSIDE RECORDS SUMMARY | 2024-11-01 13:51 | XMS_ITS | Continuity of Care Document ---
Author Organization [facility] Address [address] [place] [address] [address] [place] [address] Phone Care Team Providers Care Financial Services Education Consultant Name Role Phone Woods OD, Jose Unavailable Unavailable Procedures Procedure Date Eye Exam, New Patient Refraction Advance Directives Directive Yes / No Effective Date File Name No Information Encounters Encounter Description Practice Location Reason(s) For Visit Diagnoses Date Provider Providers Copied on Encounter [facility], [address] [place] [address] [address], [place], [place], [id number], [place] tel:[phone] [facility] No Information Feb-2 6-200 7 Woods OD Jose. [address] , [address], [place], [address], [place]. tel:[phone] Family History Family Member Type Diagnosis Age At Onset No Information Payers Payer name Insurance type Covered republican ID Authoriza tion(s) No Information Social History [...]
--- OUTSIDE RECORDS SUMMARY | 2024-11-01 13:51 | XMS_ITS | Data Portability ---
Author Organization [facility] [place] Address [address] [place] [place] [address] Care Team Providers Care Manager Marketing Name Role Phone [facility] Urologist [phone] Assessment Encounter Date Assessment Date Assessment LastModified by Organization Details LastModified Time 03/18/2020 03/18/2020 Annual gynecological exam performed. Patient will come back in a year unless there are new symptoms. [email or web address] Not available 03/18/2020 12:40:16 08/17/2020 08/17/2020 Additional precautionary measures were taken to minimize potential exposure to the Covid-19 virus during this patient s visit, including available hand commodity merchant upon arrive, temperature check and being asked [...] Lab urinalysis, dipstick 2020 021 [email or web address] [place], [address], [place], [address], 15:46:48 Referral None recorded. Procedures None recorded. Surgeries None recorded. Imaging None recorded. Medication Orders risedronate 150 mg tablet 2020 021 [email or web address] [facility]/Pharmacy #[id number], [address], [place], [address], 1 12:06:02 Macrobid 100 mg capsule 2019 020 [email or web address] [facility]/Pharmacy #[id number], [address], [place], [address], 1 14:49:21 Pyridium 100 mg tablet 2019 020 [email or web address] [facility]/Pharmacy #[id number], [address], [place], [address], 14:49:23 Patient TargetsNo targets recorded. Patient InstructionsNo [...] and labor atory findi ngs. See https ://[employer], [employer]/s ites/ defau lt/fi 018-0 - 80544 _002_ .pd f for furth er infor matio n. Test perfo rmed by [facility], d/b/a ChandrakantG roup, [address] [facility], [place] [address] , Michael Gama ra, , Labor atory [...] and labor atory findi ngs. See https ://[employer], [employer]/s ites/ defau lt/fi -0 - 07067 _002_ 01.pd f for furth er infor matio n. Test perfo rmed by [facility], d/b/a Morelia carter, [address] [facility], [place] [address] , Michael Gama ra, , Labor atory Direc tor. End of Repor t Techn ical servi ryan provi ded by [employer], [employer] [facility] log[facility], d/b/a Morelia carter, [address] [place] [address] Catracho Diez MD, Labor atordoo Dire tor. Case revie wed and diagn osis rende red at [facility] Patho logis , [facility], d/b/a PathRuben carter, [address] [facility] [address] [place] [address] Catracho Diez MD, Labor atory Dire tor. CONFI DENTI AL Not Available [facility] ([facility]) [address] [place] [address] [address], [place], [address], 03/20/2020 20:06:05 03/18/20 20 03/20/2020 HPV DNA, high- risk HPV high risk NOT DETECT ED normal Not Available [facility] ([facility]) [address] [place] [address] [address], [place], [address], 03/20/2020 20:06:05 04/27/20 20 04/28/2020 lipid panel , serum cholesterol 272 mg/dL <200 high Not Available [facility] ([facility]) [address] [place] [address] [address], [place], [address], 04/28/2020 11:16:59 04/27/20 20 04/28/2020 lipid panel , serum triglyceride s 99 mg/dL <150 Not Available [facility] ([facility]) [address] [place] [address] [address], [place], [address], 04/28/2020 11:16:59 04/27/2004/28/2020 lipid panel , serum HDL cholesterol 128 mg/dL >39 Not Available [facility] ([facility]) [address] [place] [address] [address], [place], [address], 04/28/2020 11:16:59 04/27/20 20 04/28/2020 lipid panel , serum cholesterol / HDL ratio 2.13 ratio 0.00-4 .44 Not Available [facility] ([facility]) [address] [place] [address] [address], [place], [address], 04/28/2020 11:16:59 04/27/2004/28/2020 lipid panel , serum non-HDL cholesterol 144 mg/dL <130 high Not Available [facility] ([facility]) [address] [facility] [address], [place], [address], 04/28/2020 11:16:59 04/27/2004/28/2020 lipid panel , serum [...] 2003 ATPII I guide lines Not Available [facility] ([facility]) [address] [facility] [address] [address], [place], [address], 04/28/2020 11:16:59 04/27/2004/28/2020 lipid panel , serum [...] -[facility] ([facility]) [address] [facility] [address] [address], [place], [address], 04/28/2020 11:16:59 04/27/20 20 04/28/2020 CBC WBC 7.1 K/uL 3.8-11 .5 Not Available [facility] ([facility]) [address], [place], [address], 04/28/2020 11:17:00 04/27/2004/28/2020 CBC red blood cell count (RBC) 3.83 M/mm3 3.60-5 .30 Not Available [facility] ([facility]) [address] [place] [address] [address], [place], [address], 04/28/2020 11:17:00 04/27/2004/28/2020 CBC hemoglobin (HGB) 12.9 gm/dL 11.5-1 5.5 Not Available [facility] ([facility]) [address] [place] [address] [address], [place], [address], 04/28/2020 11:17:00 04/27/2004/28/2020 CBC hematocrit (HCT) 37.1 % 35.2-4 6.4 Not Available [facility] ([facility]) [address] [place] [address] [address], [place], [address], 04/28/2020 11:17:00 04/27/2004/28/2020 CBC MCV 96.9 fL 79.0-9 9.0 Not Available [facility] ([facility]) [address] [place] [address] [address], [place], [address], 04/28/2020 11:17:00 04/27/2004/28/2020 CBC MCH 33.7 pg 26.9-3 5.0 Not Available [facility] ([facility]) [address] [place] [address] [address], [place], [address], 04/28/2020 11:17:00 04/27/2004/28/2020 CBC MCHC 34.8 g/dL 30.4-3 4.8 Not Available [facility] ([facility]) [address] [place] [address] [address], [place], [address], 04/28/2020 11:17:00 04/27/2004/28/2020 CBC RDW 41.6 fL 38.6-5 3.8 Not Available [facility] ([facility]) [address] [place] [address] [address], [place], [address], 04/28/2020 11:17:00 04/27/2004/28/2020 CBC platelet count 275 K/cum m 137-39 7 Not Available [facility] ([facility]) [address] [place] [address] [address], [place], [address], 04/28/2020 11:17:00 04/27/2004/28/2020 CMP, serum or plasm a sodium 142 mEq/L 135-14 5 Not Available [facility] ([facility]) [address] [place] [address] [address], [place], [address], 04/28/2020 11:17:01 04/27/2004/28/2020 CMP, serum or plasm a potassium 5.8 mEq/L 3.5-5. 3 high Not Available [facility] ([facility]) [address] [place] [address] [address], [place], [address], 04/28/2020 11:17:01 04/27/2004/28/2020 CMP, serum or plasm a chloride 105 mEq/L 97-108 Not Available [facility] ([facility]) [address] [place] [address] [address], [place], [address], 04/28/2020 11:17:01 04/27/2004/28/2020 CMP, serum or plasm a CO2 26 mEq/L 22-32 Not Available [facility] ([facility]) [address] [place] [address] [address], [place], [address], 04/28/2020 11:17:01 04/27/20 20 04/28/2020 CMP, serum or plasm a glucose 86 mg/dL 65-99 Not Available [facility] ([facility]) [address] [place] [address] [address], [place], [address], 04/28/2020 11:17:01 04/27/20 20 04/28/2020 CMP, serum or plasm a BUN 14 mg/dL 6-20 Not Available [facility] ([facility]) [address] [place] [address] [address], [place], [address], 04/28/2020 11:17:01 04/27/2004/28/2020 CMP, serum or plasm a creatinine 0.65 mg/dL 0.50-1 .00 Not Available [facility] ([facility]) [address] [place] [address] [address], [place], [address], 04/28/2020 11:17:01 04/27/2004/28/2020 CMP, serum or plasm a calcium 9.8 mg/dL 8.6-10 .4 Not Available [facility] ([facility]) [address] [place] [address] [address], [place], [address], 04/28/2020 11:17:01 04/27/2004/28/2020 CMP, serum or plasm a protein 6.9 g/dL 6.0-8. 3 Not Available [facility] ([facility]) [address] [place] [address] [address], [place], [address], 04/28/2020 11:17:01 04/27/2004/28/2020 CMP, serum or plasm a albumin 5.0 g/dL 3.5-5. 3 Not Available [facility] ([facility]) [address] [place] [address] [address], [place], [address], 04/28/2020 11:17:01 04/27/202020 CMP, serum or plasm a alkaline phosphatase 85 IU/L 35-121 Not Available [facility] ([facility]) [address] [place] [address] [address], [place], [address], 04/28/2020 11:17:01 04/27/2004/28/2020 CMP, serum or plasm a ALT (SGPT) 29 IU/L <5-47 Not Available [facility] ([facility]) [address] [place] [address] [address], [place], [address], 04/28/2020 11:17:01 04/27/2004/28/2020 CMP, serum or plasm a AST (SGOT) 52 IU/L <5-40 high Not Available [facility] ([facility]) [address] [place] [address] [address], [place], [address], 04/28/2020 11:17:01 04/27/2004/28/2020 CMP, serum or plasm a bilirubin, total 0.5 mg/dL <0.2-1 .2 Not Available [facility] ([facility]) [address] [place] [address] [address], [place], [address], 04/28/2020 11:17:01 04/27/2004/28/2020 CMP, serum or plasm a A/G ratio 2.6 mg/dL 1.1-2. 5 high Not Available [facility] ([facility]) [address] [place] [address] [address], [place], [address], 04/28/2020 11:17:01 04/27/2004/28/2020 GFR, estim ated (eGFR ), serum estimated GFR (black) 116 mL/mi n/1.7 3m2 >59 Not Available [facility]) [address] [place] [address] [address], [place], [address], 04/28/2020 11:17:01 04/27/20 20 04/28/2020 GFR, estim [...] e mass or diet. Not Available [facility] ([facility]) [facility] [facility] [address], [place], [address], 04/28/2020 11:17:01 04/27/20 20 04/28/2020 hemol ysis inter feren ce hemolysis interference SEE COMMEN T Speci men is sligh tly hemol yzed. Resul ts for Potas sium may be affec neli. Resul ts shoul d be inter prete d in conju nctio n with clini gurpreet prese ntati on and histo ry. Not Available [facility] ([facility]) [facility] [facility] [address], [place], [address], 04/28/2020 11:17:02 04/27/20 20 04/28/2020 HbA1c (hemo [...] ic <5.7% Non-D iabet ic Not Available [facility] ([facility]) [address] [place] [address] [address], [place], [address], 04/28/2020 11:17:02 04/27/2004/28/2020 estim ated avera ge gluco se estimated average glucose 94 mg/dL [place] ge Gluco se is calcu lated using the equat ion AG = (28.7 x HgbA1 c) - 46.7 based on the guide lines estab lishe d by the ADA. Not Available [facility]) [address] [place] [address] [address], [place], [address], 04/28/2020 11:17:03 04/27/2004/28/2020 T4, free, serum thyroxine free (free T4) 1.02 NG/dL 0.86-1 .76 Not Available [facility] ([facility]) [address] [place] [address] [address], [place], [address], 04/28/2020 11:17:03 04/27/2004/28/2020 TSH, serum or plasm a TSH reflex to FT4 6.16 mU/L 0.27-4 .20 high Not Available [facility] ([facility]) [address] [place] [address] [address], [place], [address], 04/28/2020 11:17:04 04/27/2004/28/2020 vitam in D, 25-hy [...] corre latio n requi red. Not Available [facility] ([facility]) [address] [place] [address] [address], [place], [address], 04/28/2020 11:17:04 07/09/1907/10/2020 CBC w/ auto diff WBC 6.3 K/uL 3.8-11 .5 Not Available [facility] ([facility]) [address] [place] [address] [address], [place], [address], 07/10/2020 08:33:35 07/09/19 21 07/10/2020 CBC w/ auto diff red blood cell count (RBC) 3.99 M/mm3 3.60-5 .30 Not Available [facility] ([facility]) [address] [place] [address] [address], [place], [address], 07/10/2020 08:33:35 07/09/19 21 07/10/2020 CBC w/ auto diff hemoglobin (HGB) 13.1 gm/dL 11.5-1 5.5 Not Available [facility] ([facility]) [address] [place] [address] [address], [place], [address], 07/10/2020 08:33:35 07/09/1907/10/2020 CBC w/ auto diff hematocrit (HCT) 38.3 % 35.2-4 6.4 Not Available [facility] ([facility]) [address] [place] [address] [address], [place], [address], 07/10/2020 08:33:35 07/09/19 21 07/10/2020 CBC w/ auto diff MCV 96.0 fL 79.0-9 9.0 Not Available [facility] ([facility]) [address] [place] [address] [address], [place], [address], 07/10/2020 08:33:35 07/09/19 21 07/10/2020 CBC w/ auto diff MCH 32.8 pg 26.9-3 5.0 Not Available [facility] ([facility]) [address] [place] [address] [address], [place], [address], 07/10/2020 08:33:35 07/09/19 21 07/10/2020 CBC w/ auto diff MCHC 34.2 g/dL 30.4-3 4.8 Not Available [facility] ([facility]) [address] [place] [address] [address], [place], [address], 07/10/2020 08:33:35 07/09/19 21 07/10/2020 CBC w/ auto diff RDW 40.2 fL 38.6-5 3.8 Not Available [facility] ([facility]) [address] [place] [address] [address], [place], [address], 07/10/2020 08:33:35 07/09/19 21 07/10/2020 CBC w/ auto diff platelet count 321 K/cum m 137-39 7 Not Available [facility] ([facility]) [address] [place] [address] [address], [place], [address], 07/10/2020 08:33:35 07/09/19 21 07/10/2020 CBC w/ auto diff neutrophils automated 39.1 % 41.0-7 7.0 low Not Available [facility] ([facility]) [address] [place] [address] [address], [place], [address], 07/10/2020 08:33:35 07/09/19 21 07/10/2020 CBC w/ auto diff lymphocytes automated 43.5 % 14.0-4 8.0 Not Available [facility] ([facility]) [address] [place] [address] [address], [place], [address], 07/10/2020 08:33:35 07/09/19 21 07/10/2020 CBC w/ auto diff monocytes automated 10.5 % 4.0-13 .0 Not Available [facility] ([facility]) [address] [place] [address] [address], [place], [address], 07/10/2020 08:33:35 07/09/19 21 07/10/2020 CBC w/ auto diff eosinophils automated 5.6 % 0.0-8. 0 Not Available [facility] ([facility]) [address] [place] [address] [address], [place], [address], 07/10/2020 08:33:35 07/09/19 21 07/10/2020 CBC w/ auto diff basophils automated 1.0 % 0.0-1. 5 Not Available [facility] ([facility]) [address] [place] [address] [address], [place], [address], 07/10/2020 08:33:35 07/09/19 21 07/10/2020 CBC w/ auto diff immature granulocyte automated 0.3 % 0.0-1. 0 Not Available [facility] ([facility]) [address] [place] [address] [address], [place], [address], 07/10/2020 08:33:35 07/09/19 21 07/10/2020 CMP, serum or plasm a sodium 144 mEq/L 135-14 5 Not Available [facility] ([facility]) [address] [place] [address] [address], [place], [address], 07/10/2020 08:33:36 07/09/19 21 07/10/2020 CMP, serum or plasm a potassium 5.5 mEq/L 3.5-5. 3 high Not Available [facility] ([facility]) [address] [place] [address] [address], [place], [address], 07/10/2020 08:33:36 07/09/19 21 07/10/2020 CMP, serum or plasm a chloride 105 mEq/L 97-108 Not Available [facility]) [address] [place] [address] [address], [place], [address], 07/10/2020 08:33:36 07/09/19 21 07/10/2020 CMP, serum or plasm a CO2 28 mEq/L 22-32 Not Available [facility] ([facility]) [address] [place] [address] [address], [place], [address], 07/10/2020 08:33:36 07/09/19 21 07/10/2020 CMP, serum or plasm a glucose 69 mg/dL 65-99 Not Available [facility]) [address] [place] [address] [address], [place], [address], 07/10/2020 08:33:36 07/09/19 21 07/10/2020 CMP, serum or plasm a BUN 13 mg/dL 6-20 Not Available [facility] ([facility]) [address] [place] [address] [address], [place], [address], 07/10/2020 08:33:36 07/09/1907/10/2020 CMP, serum or plasm a creatinine 0.60 mg/dL 0.50-1 .00 Not Available [facility] ([facility]) [address] [place] [address] [address], [place], [address], 07/10/2020 08:33:36 07/09/19 21 07/10/2020 CMP, serum or plasm a calcium 9.9 mg/dL 8.6-10 .4 Not Available [facility]) [address] [place] [address] [address], [place], [address], 07/10/2020 08:33:36 07/09/19 21 07/10/2020 CMP, serum or plasm a protein 6.8 g/dL 6.0-8. 3 Not Available [facility] ([facility]) [address] [place] [address] [address], [place], [address], 07/10/2020 08:33:36 07/09/1907/10/2020 CMP, serum or plasm a albumin 4.7 g/dL 3.5-5. 3 Not Available [facility] ([facility]) [address] [place] [address] [address], [place], [address], 07/10/2020 08:33:36 07/09/19 21 07/10/2020 CMP, serum or plasm a alkaline phosphatase 73 IU/L 35-121 Not Available [facility] ([facility]) [address] [place] [address] [address], [place], [address], 07/10/2020 08:33:36 07/09/19 21 07/10/2020 CMP, serum or plasm a ALT (SGPT) 19 IU/L <5-47 Not Available [facility] ([facility]) [address] [place] [address] [address], [place], [address], 07/10/2020 08:33:36 07/09/19 21 07/10/2020 CMP, serum or plasm a AST (SGOT) 22 IU/L <5-40 Not Available [facility] ([facility]) [address] [place] [address] [address], [place], [address], 07/10/2020 08:33:36 07/09/19 21 07/10/2020 CMP, serum or plasm a bilirubin, total 0.4 mg/dL <0.2-1 .2 Not Available [facility] ([facility]) [address] [place] [address] [address], [place], [address], 07/10/2020 08:33:36 07/09/1907/10/2020 CMP, serum or plasm a A/G ratio 2.2 mg/dL 1.1-2. 5 Not Available [facility] [address] [place] [address] [address], [place], [address], 07/10/2020 08:33:36 07/09/1907/10/2020 GFR, estim ated (eGFR ), serum estimated GFR (black) 119 mL/mi n/1.7 3m2 >59 Not Available [facility] [address] [place] [address] [address], [place], [address], 07/10/2020 08:33:36 07/09/1907/10/2020 GFR, estim ated (eGFR [...] decre ase G5 14 or less Felix shretsha re *In the absen ce of victor [...] muscl e mass or diet. Not Available [facility] ([facility]) [address] [place] [address] [address], [place], [address], 07/10/2020 08:33:36 07/09/1907/10/2020 phosp horus , serum or plasm a phosphorus 4.3 mg/dL 2.5-4. 5 Not Available [facility] [address] [place] [address] [address], [place], [address], 07/10/2020 08:33:36 07/09/1907/10/2020 TSH, serum or plasm a TSH reflex to FT4 0.37 mU/L 0.27-4 .20 Not Available [facility] ([facility]) [address] [place] [address] [address], [place], [address], 07/10/2020 08:33:37 07/09/1907/10/2020 vitam in D, 25-hy [...] corre latio n requi red. Not Available [facility] ([facility]) [address] [place] [address] [address], [place], [address], 07/10/2020 08:33:37 01/16/2001/15/2021 URINA LYSIS , WITH MICRO SCOPI C color, urine Yellow colorl ess, light yellow , yellow , dark yellow , straw Not Available [facility] (Lab) [address], [place], [address], 01/16/2021 22:36:34 01/16/20 21 01/15/2021 URINA LYSIS , WITH MICRO SCOPI C clarity, urine Slight ly Cloudy abnormal Not Available [facility] (Lab) [address] [facility], [place], [address], 01/16/2021 22:36:34 01/16/20 21 01/15/2021 URINA LYSIS , WITH MICRO SCOPI C glucose, urine Negati ve mg/dL negati ve Not Available [facility] (Lab) [address] [facility], [place], [address], 01/16/2021 22:36:34 01/16/20 21 01/15/2021 URINA LYSIS , WITH MICRO SCOPI C bilirubin, urine Negati ve mg/dL negati ve Not Available [facility] (Lab) [address] [facility], [place], [address], 01/16/2021 22:36:34 01/16/20 21 01/15/2021 URINA LYSIS , WITH MICRO SCOPI C ketones, urine Negati ve mg/dL negati ve Not Available [facility] (Lab) [address] [facility], [place], [address], 01/16/2021 22:36:34 01/16/20 21 01/15/2021 URINA LYSIS , WITH MICRO SCOPI C pH, urine 6.0 . 5.0-9. [address] [facility] (Lab) [address] [facility], [place], [address], 01/16/2021 22:36:34 01/16/20 21 01/15/2021 URINA LYSIS , WITH MICRO SCOPI C specific gravity, urine 1.012 . 1.001- 1.[address] [facility] (Lab) [address] [facility], [place], [address], 01/16/2021 22:36:34 01/16/20 21 01/15/2021 URINA LYSIS , WITH MICRO SCOPI C blood, urine Small negati ve abnormal Not Available [facility] (Lab) [address] [facility], [place], [address], 01/16/2021 22:36:34 01/16/20 21 01/15/2021 URINA LYSIS , WITH MICRO SCOPI C protein, urine Negati ve mg/dL negati ve Not Available [facility] (Lab) [address] [facility], [place], [address], 01/16/2021 22:36:34 01/16/20 21 01/15/2021 URINA LYSIS , WITH MICRO SCOPI C urobilinogen , urine <2.0 mg/dL <2.0 Not Available [facility] (Lab) [address] [facility], [place], [address], 01/16/2021 22:36:34 01/16/20 21 01/15/2021 URINA LYSIS , WITH MICRO SCOPI C nitrite, urine Negati ve negati ve Not Available [facility] (Lab) [address] [facility], [place], [address], 01/16/2021 22:36:34 01/16/20 21 01/15/2021 URINA LYSIS , WITH MICRO SCOPI C leukocyte esterase, urine Negati ve negati ve Not Available [facility] (Lab) [address] [facility], [place], [address], 01/16/2021 22:36:34 01/16/20 21 01/15/2021 URINA LYSIS , WITH MICRO SCOPI C WBC, urine 0-5 /hpf none, 0-[address] [facility] (Lab) [address] [facility], [place], [address], 01/16/2021 22:36:34 01/16/20 21 01/15/2021 URINA LYSIS , WITH MICRO SCOPI C RBC, urine 0-2 /hpf none, 0-[address] [facility] (Lab) [address] [facility], [place], [address], 01/16/2021 22:36:34 01/16/20 21 01/15/2021 URINA LYSIS , WITH MICRO SCOPI C bacteria, urine None /hpf none Not Available [facility] (Lab) [address] [facility], [place], [address], 01/16/2021 22:36:34 01/16/20 21 01/15/2021 URINA LYSIS , WITH MICRO SCOPI C squamous epithelial cells, urine Modera te /hpf none abnormal Not Available [facility] (Lab) [address] [facility], [place], [address], 01/16/2021 22:36:34 01/16/20 21 01/15/2021 CULTU RE: URINE result report SEE RESULT S BELOW Test: Cultu re: Urine Speci men Sourc e: Urine Voide d Speci men Type: Urine Speci men Date: 2020 2:43 PM Resul t Date: 2020 9:32 PM Resul t Statu s: Final resul t Abnor mal: No Resul ting Lab: [facility] [address] [facility] [address] Tel: CULTU RE ----- ----- ----- --- No growt h in 1 day (dete ction level of 10,00 0 colon ies / ml.) Not Available [facility] (Lab) [address] [facility], [place], [address], 01/16/2021 22:36:35 01/16/20 21 01/15/2021 urina lysis , dipst ick Leukocytes neg Not Available [facility] [address], [place], [address], 01/15/2021 14:41:50 01/16/20 21 01/15/2021 urina lysis , dipst ick Nitrite neg Not Available [facility] [address], [place], [address], 01/15/2021 14:41:50 01/16/20 21 01/15/2021 urina lysis , dipst ick Urobilinogen neg Not Available [facility] deng [address], [place], [address], 01/15/2021 14:41:50 01/16/20 21 01/15/2021 urina lysis , dipst ick Protein neg Not Available [facility] [address], [place], [address], 01/15/2021 14:41:50 01/16/20 21 01/15/2021 urina lysis , dipst ick pH 5 Not Available [facility] [address], [place], [address], 01/15/2021 14:41:50 01/16/20 21 01/15/2021 urina lysis , dipst ick Blood trace Not Available [facility] [address], [place], [address], 01/15/2021 14:41:50 01/16/20 21 01/15/2021 urina lysis , dipst ick Specific [place] neg Not Available [facility] elidia [address], [place], [address], 01/15/2021 14:41:50 01/16/20 21 01/15/2021 urina lysis , dipst ick Ketone neg Not Available [facility] [address], [place], [address], 01/15/2021 14:41:50 01/16/20 21 01/15/2021 urina lysis , dipst ick Bilirubin neg Not Available [facility] [address], [place], [address], 01/15/2021 14:41:50 01/16/20 21 01/15/2021 urina lysis , dipst ick Glucose neg Not Available [facility] [address], [place], [address], 01/15/2021 14:41:50 01/16/20 21 01/15/2021 urina lysis , dipst ick Appearance clear Not Available [facility] rylie [address], [place], [address], 01/15/2021 14:41:50 01/16/20 21 01/15/2021 urina lysis , dipst ick Color straw Not Available [facility] [address], [place], [address], 01/15/2021 14:41:50 03/18/20 20 02/25/2020 CT, abdom en, w/o contr ast No observ ation record ed. [facility] [address], [place], [address], 03/23/2020 13:24:50 06/05/20 20 06/05/2020 MAMMO , scree lexis, bilat eral No observ ation record ed. [facility] [address], [place], [address], 06/16/2020 13:44:27 06/08/20 20 06/05/2020 MAMMO , scree lexis, bilat eral No observ ation record ed. [facility] [address], [place], [address], 06/16/2020 13:26:52 06/30/19 21 DEXA, axial skele ton + verte bral fract ure asses sment No observ ation record ed. [facility] [address], [place], [address], 07/07/2020 17:03:15 07/27/19 21 07/27/2020 MAMMO , diagn ostic , bilat eral No observ ation record ed. les [facility] [address], [place], [address], 07/31/2020 16:35:48 Result Notes None recorded. Problems Name Problem SNOMED Code Status Onset Date Resolution Date Notes Provider Name and Address Organization Details Recorded Time Pelvic and perineal pain 306493758 Active 2015 Pelvic and perineal pain;Pra ctice ID: 0001 Not Available [facility] 0 21:52:52 Dyspareu low 92902046 Active 2015 Dyspareu low;Prac charlene ID: 0001 Not Available [facility] 0 21:52:52 Cyst of ovary 19806038 Active 2015 Unspecif ied ovarian cysts;Pr actice ID: 0001 Not Available [facility] 0 21:52:52 Finding of trunk structur e 533741449 Active 2015 Generali zed intra-ab d and pelvic swelling , mass and lump;Pra ctice ID: 0001 Not Available [facility] 0 21:52:52 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 64389409 Active 2015 Oth noninfla mmatory disord of ovary, fallop and broad ligmt;Pr actice ID: 0001 Not Available [facility] 0 21:52:52 Lesion of ovary Active 2015 Other ovarian cyst, right side;Pra ctice ID: 0001 Not Available [facility] 0 21:52:52 Increase d frequenc y of urinatio n 903821492 Active 2017 Frequenc y of micturit ion;Prac charlene ID: 0001 Not Available [facility] 0 21:52:[address] Concept Active 2017 Encounte r for general adult medical exam w abnormal findings ;Practic e ID: 0001 Not Available [facility] 0 21:52:[address] Concept Active 2017 Encntr for pathology transcriptionist exam (general ) (routine ) w/o abn [...] [facility] 0 21:52:53 Pregnanc y test negative 308034466 Active 2010 Negative Pregnanc y Test;Pra ctice ID: 0001 Not Available [facility] 0 21:52:53 Ill-defi dima intestin al infectio n Active 2011 No Show Fee;Prac charlene ID: 0001 Not Available [facility] 0 21:52:53 Right lower quadrant pain 492049311 Active 2011 Abdomina l pain, right lower quadrant ;Practic e ID: 0001 Not Available [facility] 0 21:52:53 Speciali zed medical examinat ion Active 2011 Routine gynecolo gical examinat ion;Prac charlene ID: 0001 Not Available [facility] 0 21:52:53 Screenin g for malignan t neoplasm of cervix Active 2011 Pap Smear;Pr actice ID: 0001 Not Available [facility] 0 21:52:53 Tobacco dependen ce syndrome 81471175 Active 2011 Nondepen dent tobacco use disorder ;Practic e ID: 0001 Not Available [facility] 0 21:52:54 Efrain hematuri a 107287443 Active 2011 GROSS HEMATURI A;Practi ce ID: 0001 Not Available [facility] 0 21:52:54 Postmeno pausal bleeding 45017214 Active 2011 Postmeno pausal bleeding ;Practic e ID: 0001 Not Available [facility] 0 21:52:54 Screenin g for malignan t neoplasm of rectum Completed 201103/21/2012 Screenin g for malignan t neoplasm s of the rectum;R ecorded Elsewher e: No Locat ion: [facility] S ource: EHR Independent Marketing Consultant joesph: N Practi ce ID: 0001 Gregor lable Time: 11:30:00 AM Not Available [facility] 0 21:52:54 Microsco pic hematuri a 762021897 Completed 201103/21/2012 MICROSCO PIC HEMATURI A;Record ed Elsewher e: No Locat ion: [facility] S ource: EHR Independent Marketing Consultant joesph: N Practi ce ID: 0001 Gregor lable Time: 11:30:00 AM Not Available [facility] 0 21:52:[address] Concept Active 2015 Encntr for general adult medical exam w/o abnormal findings ;Recorde d Elsewher e: No Locat ion: [facility] S ource: EHR Independent Marketing Consultant joesph: N Practi ce ID: 0001 Gregor lable Time: 12:30:00 PM Not Available [facility] 0 21:52:55 Osteopor osis 06365055 Active 2017 Age-rela neli osteopor osis w/o current patholog ical fracture ;Recorde d Elsewher e: No Locat ion: [facility] S ource: EHR Independent Marketing Consultant joesph: N Practi ce ID: 0001 Gregor lable Time: 04:05:27 PM Not Available [facility] 0 21:52:55 Problem Notes None recorded. Procedures Surgical History Date Name Laterality Status Provider Name and Address Organization Details Recorded Time 03/18/20 Date of Last Pap Smear completed Yeni Zaidi [facility] 08/17/2020 11:21:36 [facility] 03/18/2020 12:44:54 Removal of fallopian tube completed Yeni Zaidi [facility] 03/18/2020 12:45:08 Partial Hysterectomy completed Yeni Zaidi [facility] 03/18/2020 12:45:15 Tubal Ligation completed Yeni Zaidi [facility] 03/18/2020 12:45:19 Imaging Results Imaging Date Name Status LastModified by Organiz ation Details LastModified Time 02/25/2020 CT, abdomen, w/o contrast completed [facility] [address], [place], [address], 03/23/2020 13:24:50 06/05/2020 MAMMO, screening, bilateral completed [facility] [address], [place], [address], 06/16/2020 13:44:27 06/05/2020 MAMMO, screening, bilateral completed [facility] [address], [place], [address], 06/16/2020 13:26:52 06/30/2020 DEXA, axial skeleton + vertebral fracture assessment completed [facility] [address], [place], [address], 07/07/2020 17:03:15 07/27/2020 MAMMO, diagnostic, bilateral completed [facility] [address], [place], [address], 07/31/2020 16:35:48 Procedure Notes None recorded. Medical Equipment None Reported. Allergies Allergen ID Allergen Name Allergen Category Reaction Reaction Severity Criticality Documentation Date Start Date Code Code System Note Provider Name and Address Organization Details Recorded Time 2212 amoxicill in medicatio n Not available Not available Not available 03/18/2020 723 RxNorm Yeni jaramillo [facility] 0 12:44:05 Medications Name Sig Start [...] Prescrib ed Elsewher e: Yes Loca tion: [facility] odify By: karissa de luna DateTime : 12/03/19 16 12:30:00 PM Not Available Not Available Not Available Vitamin D2 1,250 mcg (50,000 unit) capsule take 1 capsule by oral route every week 2017 active Prescrib ed Elsewher e: No Locat ion: [facility] odify By: les de luna DateTime : 03/02/20 18 03:59:19 PM Not Available Not Available Not Available Stanback Headache Powder 650 mg oral packet 12/02 completed Prescrib ed Elsewher e: Yes Loca tion: [facility]ify By: tessie marshall DateTime : 09/13/19 12 11:30:00 AM Not Available Not Available Not Available Bactrim DS 800 mg-160 mg tablet take 1 tablet by oral route every 12 hours 03/21 completed Prescrib ed Elsewher e: No Locat ion: [facility] odify By: melanie sesay DateTime : 09/19/19 [...] Updated DateTime 08/17/2020 152.4 cm 20.7 kg/m2 38031.79 g 115 mm[Hg] 73 mm[Hg] Yeni [facility] 1 14:49:17 Date Recorded Body height Provider Name an d Address Organization Details Last Updated DateTime 01/15/2021 152.4 cm Katey Britt [facility] 01/15/2021 14:39:11 Date Recorded Body height Body mass index (BMI) Body weight Systolic blood pressure Diastolic blood pressure Provider Name and Address Organization Details Last Updated DateTime 03/18/2020 152.4 cm 19.7 kg/m2 77765.83 g 128 mm[Hg] 84 mm[Hg] Yeni [facility] 0 12:51:16 Social History None [...] SNOMED-CT Code Diagnosis ICD10 Code Diagnosis Note [id number] Sarah Beth Sierra [facility] [address] [address] 03/18/2020 12:37:57 03/18/2020 13:20:16 Gynecologic examination 98379541 Z00.01 Take Calcium with Vitamin D 12-1500mg daily. Do monthly self breast exams. It is advised to get annual flu shot in the fall and she could obtain at [facility] or [facility]. If you haven't received the [...] she disclosed today. Increased frequency of urination 873254691 R35.0 Macrobid sent Pyridium sent Urine tested elsewhere & told cystitis but no one called her in anything. We discussed that there could also be a component of IC as well. Will treat based on subjective complaints but needs to consider urology if sx's persist. [id number] Sarah Beth Sierra , [facility] [address] [address] 08/17/2020 14:42:37 08/19/2020 21:57:45 Postmenopausal osteoporosis 793513577 M81.0 Recommend: Osteopanel , Calcium 1200mg in [...] check in yearly. Mastodynia of bilateral breasts [id number] 1596231 N64.4 Recommend seeking breast specialist for additional evaluation to ensure no other issues. She agrees. Cigarette smoker 0771157 7 F17.210 We reviewed smoking cessation options including nicotine patches, wellbutrin (not interested in chantix); counseling . She is contemplat ing and moving towards cessation motivated by new grandbaby that is coming soon. She wants to help take care of her grandbaby and the stipulatio n is that she quits smoking so as to not expose baby to second hand smoke. [id number] Sarah Beth Sierra [facility] [address] [address] 01/15/2021 14:03:37 01/16/2021 14:26:46 Blood in urine 45295568 R31.9 Health Concerns Section Related Observation LastModified by Organization Detai ls LastModified Time None Recorded Concern Status LastModified by Organization Details LastModified Time None Recorded Advance Directives Directive None Recorded Payers Encounter Date Sequence Insurance Name Policy Number Policy Carrington Covered Member ID Carrington Member ID Guarantor Name 03/18/[address] [id number] [facility] 08/17/[address] [id number] [facility] 01/15/[address] [id number] [facility] Notes Date Note Type Note Provider [...] on colonoscopy screening Smoker Sarah Beth Sierra [facility] [address], [place], [address], [facility] 03/18/2020 13:14:13 08/17/2020 text/html Patient is here today to discuss the followin. Mammo results 2. Dexa results and recommendations 3. Smoking cessation Sarah Beth Sierra, [facility]- [address], [place], [address], [place] [facility] 08/25/2020 09:28:18 OBGyn Episode Ob Episode Information Episode Created Date Number of Fetuses Patient Bloodtype Patient rh Status Prepregnancy Weight lbs Domestic Partner Domestic Partner Phone Father Name Aircraft Navigator Status 03/18/20 20 1 CLOSED Fetus Data [...] Domestic Partner Domestic Partner Phone Father Name Aircraft Navigator Status 03/18/20 20 1 CLOSED Fetus Data [...]
--- OUTSIDE RECORDS SUMMARY | 2024-11-01 13:51 | XMS_ITS | Referral Summary ---
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 Gender Identity Not on file Sexual Orientation Not on file Last Filed Vital Signs Vital Sign Reading Time Taken Comments Blood Pressure 138/86 07/05/2024 12:25 PM HANDS ASSEMBLER Pulse 82 07/05/2024 12:25 PM HANDS ASSEMBLER Temperature 36.8 C (98.3 F) 07/05/2024 12:25 PM HANDS ASSEMBLER Respiratory Rate 20 07/05/2024 12:2 5 PM HANDS ASSEMBLER Oxygen Saturation 97% 07/05/2024 12: 25 PM HANDS ASSEMBLER Inhaled Oxygen Concentration - - Weight 50.3 kg (110 lb 12.8 oz) 025 12:25 PM HANDS ASSEMBLER Height 152.4 cm (5') 01/01/2024 12:29 PM CDT Body Mass Index 21.64 01/01/2024 12:29 PM CDT Plan of Treatment Not on file Insurance CHOICE PLUS [employer] OPEN ACCESS Care Teams Legal Contracts Specialist Relationship Specialty Start Date End Date Seth Gann NP [address] [place] [address] PCP - General Nurse Practitioner 01/01/24
--- OUTSIDE RECORDS SUMMARY | 2024-11-01 13:51 | XMS_ITS | Clinical Summary ---
Author Organization [facility] Address [address] [place] [address] Care Team Providers Care Shipyard Painter Helper Name Role Phone Seth Gann NP Primary [...] on file Legal Sex Female 10:22 AM TRADE PROMOTION ANALYST Gender Identity Not on file Sexual Orientation Not on file Obstetrics History Last Filed Vital Signs Vital Sign Reading Time Taken Comments Blood Pressure 138/86 07/05/2024 12:25 PM TRADE PROMOTION ANALYST Pulse 82 07/05/2024 12:25 PM TRADE PROMOTION ANALYST Temperature 36.8 C (98.3 F) 07/05/2024 12:25 PM TRADE PROMOTION ANALYST Respiratory Rate 20 07/05/2024 12:2 5 PM TRADE PROMOTION ANALYST Oxygen Saturation 97% 07/05/2024 12: 25 PM TRADE PROMOTION ANALYST Inhaled Oxygen Concentration - - Weight 50.3 kg (110 lb 12.8 oz) 025 12:25 PM TRADE PROMOTION ANALYST Height 152.4 cm (5') 01/01/2024 12:29 PM [...] patient's age to complete this topic Insurance [facility] CHOICE PLUS [employer] OPEN ACCESS Care Teams Shipyard Painter Helper Relationship Specialty Start Date End Date Seth Gann NP [address] [place] [address] PCP - General Nurse Practitioner 01/01/24
== END 2024-11-01 13:47 | disposition home or self-care (01) ==
LOC: ANHIMG 13:47
PROVIDERS: PCP Nurse Practitioner; Visit Provider Nurse Practitioner Women's Health
DX: M85.89 Other specified disorders of bone density and structure, multiple sites (principal); Z78.0 Asymptomatic menopausal state
CPT/HCPCS: 77080

== ENCOUNTER 2025-01-20 12:33 | Outpatient (CLI) | payer OTHER, SELFPAY ==
--- NOTE | ~2025-01-20 | MM_ITS ---
EXAMINATION: MM screening linh BI w maria elena HISTORY: Screening TECHNIQUE: Craniocaudal and mediolateral oblique 3-D tomosynthesis images were obtained and synthetic 2-D images were generated. CAD analysis was submitted and interpreted. COMPARISON: Comparison to multiple prior studies sequentially, with oldest reviewed study dated 2018. BREAST PARENCHYMAL COMPOSITION: There are scattered areas of fibroglandular density. FINDINGS: There is no evidence of suspicious mass, calcification, or architectural distortion to sug gest malignancy in either breast. Multiple biopsy clips in the left breast. IMPRESSION: 1. No mammographic evidence of malignancy. 2. Recommend routine screening mammography in one year. BI-RADS Category 1: Negative Reviewed, dictated and finalized at location B.
== END 2025-01-20 12:34 | disposition home or self-care (01) ==
PROVIDERS: PCP Surgery; Visit Provider Surgery
DX: Z12.31 Encounter for screening mammogram for malignant neoplasm of breast (principal); R92.8 Other abnormal and inconclusive findings on diagnostic imaging of breast; N63.25 Unspecified lump in the left breast, overlapping quadrants; N63.20 Unspecified lump in the left breast, unspecified quadrant
CPT/HCPCS: 77063; 77067

== ENCOUNTER 2025-05-14 09:06 | Outpatient (CLI) | payer OTHER, SELFPAY ==
--- NOTE | ~2025-05-14 | US_ITS ---
US abdomen limited INDICATION: Right upper quadrant PROCEDURE: Realtime right upper abdominal ultrasound. COMPARISON: No prior studies for comparison. FINDINGS: The pancreas is normal without focal mass or pancreatic ductal dilation. In the liver there is a 4 mm hyperechoic mass in the right hepatic lobe. There is normal directional flow in the portal vein. The gallbladder is normal without stones, gallbladder wall thickening or pericholecystic fluid. Common bile duct measures 5 mm. No sonographic Abbott's sign. IMPRESSION: 1: Echogenic mass of the right hepatic lobe measuring 5 mm, likely benign hemangioma in the absence of known malignancy. Clinically correlate. Reviewed, dictated and finalized at location O. IDE PHYSICAL DAMAGE APPRAISER IMPRESSION: 1: Echogenic mass of the right hepatic lobe measuring 5 mm, likely benign heman gioma in the absence of known malignancy. Clinically correlate.
== END 2025-05-14 09:07 | disposition home or self-care (01) ==
PROVIDERS: PCP Nurse Practitioner; Visit Provider Nurse Practitioner
DX: R16.0 Hepatomegaly, not elsewhere classified (principal)
CPT/HCPCS: 76705